=== PATIENT | male | born 1955 | race African-American/Black ===

== ENCOUNTER 2020-04-24 08:57 | Emergency (ER) | payer OTHER ==
[2020-04-24] MEDS ORDERED: Morphine 4 MG/ML VIAL ONE (09:13)
[2020-04-24] MEDS ORDERED: Ondansetron PF 4 MG/2 ML Vial ONE (09:13)
[2020-04-24 09:39] LABS: #Eosinphils 0.1 thou/uL (0.0-0.7); #Lymphocytes 2.4 thou/uL (1.20-3.40); #Monocytes 1.2 thou/uL (0.11-0.59); #Neutrophils 5.2 thou/uL (1.40-6.50); %Basophils 0.4 % (0.0-1.0); %Eosinophils 0.7 % (0.0-10.0); %Lymphocytes 27.1 % (21.0-51.0); %Neutrophils 58.9 % (42.0-75.0); Mean Corpuscular HGB CONC 32.5 g/dL (32.0-36.0); Mean Corpuscular Hemoglobin 27.1 pg (27.0-31.0); Mean Corpuscular Volume 83.3 fL (78.0-98.0); Mean Platelet Volume 10.5 fL (7.4-10.4); Platelet Count 195 thou/uL (130-400); RBC Distribution Width 21.1 % (11.5-14.5); Red Blood Cell (RBC) Count 2.95 mill/uL (4.70-6.10); White Blood Cell (WBC) Count 8.9 thou/uL (4.8-10.8)
[2020-04-24] MEDS ORDERED: Ketorolac Tromethamine 30 MG/ML VIAL ONE (09:39)
[2020-04-24 10:03] LABS: ALT (SGPT) 23 U/L (8-55); AST (SGOT) 64 U/L (5-34); Albumin 3.8 g/dL (3.4-4.8); Alkaline Phosphatase 210 U/L (40-110); Anion Gap 20 mmol/L (10-20); BUN (Urea Nitrogen) 24 mg/dL (8.4-25.7); Bilirubin, Total 0.6 mg/dL (0.2-1.2); Calc. Creatinine Clearance 0 mL/min (70-130); Calcium 9.5 mg/dL (7.8-10.44); Carbon Dioxide 20 mmol/L (23-31); Chloride 101 mmol/L (98-107); Estimated GFR-MDRD Greater than 90; Globulin 4.3 g/dL (2.4-3.5); Glucose 112 mg/dL (80-115); Potassium 4.3 mmol/L (3.5-5.1); Protein, Total 8.1 g/dL (5.8-8.1); Sodium 137 mmol/L (136-145)
== END 2020-04-24 14:12 | disposition home or self-care (01) ==
LOC: MERGE 08:57 → ERS 08:57
DX: G89.3 Neoplasm related pain (acute) (chronic) (principal); C61 Malignant neoplasm of prostate; C79.89 Secondary malignant neoplasm of other specified sites; Z79.899 Other long term (current) drug therapy
CPT/HCPCS: 80053; 85025; 96374; 96375; J1885; J2270; J2405

== ENCOUNTER 2020-04-30 12:16 | Inpatient (IN) | payer BC, SELFPAY ==
[2020-04-30 13:14] LABS: Hemoglobin 8.1 g/dL (14.0-18.0); Mean Corpuscular HGB CONC 32.9 g/dL (32.0-36.0); Mean Corpuscular Hemoglobin 28.2 pg (27.0-31.0); Mean Corpuscular Volume 85.8 fL (78.0-98.0); RBC Distribution Width 19.1 % (11.5-14.5); Red Blood Cell (RBC) Count 2.87 mill/uL (4.70-6.10)
[2020-04-30] MEDS ORDERED: Aspirin Chewable 81 MG TAB ONE ×2 (13:19→13:20)
[2020-04-30] MEDS ORDERED: Cefepime 2 GM VIAL ONE (13:19)
--- NOTE | 2020-04-30 13:24 | RAD ---
EXAM: XR Chest 1 View Portable PROVIDED CLINICAL HISTORY: Chest pain COMPARISON: 04/11/2020 FINDINGS: Cardiac and mediastinal silhouette is within normal limits. Prominence of the pulmonary vasculature a nd pulmonary interstitium. Question patchy foci of airspace disease involving the left mid and lower lung zones. No pleural fluid or pneumothorax apparent. Diffuse osseous sclerosis. IMPRESSION: Prominence of the pulmonary vasculature and pulmonary interstitium, with question left perihilar airs pace disease. Correlate for alveolar edema versus pneumonia.
[2020-04-30 13:27] LABS: ALT (SGPT) 164 U/L (8-55); AST (SGOT) 101 U/L (5-34); Albumin 3.1 g/dL (3.4-4.8); Alkaline Phosphatase 304 U/L (40-110); Anion Gap 16 mmol/L (10-20); BUN (Urea Nitrogen) 21 mg/dL (8.4-25.7); Bilirubin, Total 2.3 mg/dL (0.2-1.2); CK (CPK) 123 U/L (30-200); Calc. Creatinine Clearance 0 mL/min (70-130); Calcium 9.8 mg/dL (7.8-10.44); Carbon Dioxide 27 mmol/L (23-31); Chloride 96 mmol/L (98-107); Globulin 4.2 g/dL (2.4-3.5); Glucose 97 mg/dL (80-115); Potassium 4.9 mmol/L (3.5-5.1); Protein, Total 7.3 g/dL (5.8-8.1); Sodium 134 mmol/L (136-145)
[2020-04-30] MEDS ORDERED: Vancomycin HCl 1.25 GM in Sodium Chloride 0.9% 250 ML 250 ML IVPB SCH (13:30)
[2020-04-30] MEDS ORDERED: Iopamidol-370 76% 500 ML 1 ML ONE (13:35)
[2020-04-30 13:36] LABS: Band 34 % (5-11); Lymphocytes 22 % (21-51); MDiff Complete? YES; Mean Platelet Volume 8.1 fL (7.4-10.4); Metamyelocyte 4 % (0-0); Monocytes 19 % (0-10); Myelocyte 6 % (0-0); Neutrophil 8 % (42-75); Nucleated RBC 4 % (0); Ovalocytes SLIGHT = 2-5 cells (100X) (0-1/hpf); Platelet Count 64 thou/uL (130-400); Platelet Morphology Comment Appears Decreased; Polychromasia MODERATE = 3-4 cells (100X) (0-2/hpf); Reactive Lymphocytes 7 % (0-10); Schistocytes SLIGHT = 2-5 cells (100X) (0-1/hpf); Target Cells SLIGHT = 2-5 cells (100X) (0-1/hpf); Tear Drops SLIGHT = 2-5 cells (100X) (0-1/hpf); White Blood Cell (WBC) Count 8.5 thou/uL (4.8-10.8)
[2020-04-30 13:56] LABS: INR-International Normal Ratio 1.4; Prothrombin Time 17.8 sec (12.0-14.7)
[2020-04-30 13:57] LABS: PTT 52.5 sec (22.9-36.1)
--- NOTE | 2020-04-30 14:30 | CT ---
CT of the abdomen and pelvis: 04/30/2020 COMPARISON: 04/11/2020 HISTORY: Epigastric pain, right upper quadrant pain, metastatic prostate cancer TECHNIQUE: Axial CT imaging at 5 mm intervals from lung bases through pubic symphysis with IV contras t. Coronal and sagittal reformatted imaging obtained. FINDINGS: Small bilateral pleural effusions are noted, slightly more prominent than on the prior exam . No free intraperitoneal air. There is a small/moderate pericardial effusion which is larger than on the 04/11/2020 exam. The gallb ladder is grossly unremarkable but not optimally assessed on CT. Along the gallbladder fundus there is questionable wall thickening versus mild soft tissue density external to the gallbladder abutting the fundus with subtle nodular soft tissue density adjacent to the tip of the right lobe of the liver abutting the adjacent:, Not displacing on the prior exam. The liver and spleen demonstrate gran ulomatous change and appears stable when compared to the prior exam. The adrenal glands and kidneys demonstrate no acute findings. Bilateral renal cysts are again noted. The pancreas is grossly unremarkable. Evaluation of the bowel is limited without oral contrast media. Significant stool is seen within the colon. The appendix appears grossly unremarkable. No evidence fo r small bowel obstruction. There is mild diffuse hazy increased density throughout the mesenteric fat of the abdomen/pelvis, whi ch appears new when compared to the prior exam. Prominent right inguinal lymph nodes again noted measuring up to 1.4 cm. No discrete retroperitoneal lymphadenopathy. Review of the osseous structures demonstrates severe widespread osseous metastatic disease involving the entirety of the imaged spine as well as numerous bilateral ribs, bilateral proximal femora, the sacrum, and diffusely throughout the osseous structures of the pelvis. Mild anterolisthesis at the L5 -S1 level is noted secondary to bilateral L5 pars defects. IMPRESSION: Widespread osseous metastatic disease. Interval enlargement of small bilateral pleural ef fusions with increasing pericardial fluid. Hazy increased density throughout the mesenteric fat is noted suggesting nonspecific mesenteric edema. Subtle soft tissue density is suspected in the right upper quadrant abutting the undersurface of the gallbladder and right lobe of the liver as well as the adjacent colon. This could be related to malignancy or hyperdense fluid. Right upper quadrant ultrasound can better assessed the gallbladder.
--- NOTE | 2020-04-30 14:33 | CT ---
CT ANGIOGRAM THORAX WITH CONTRAST: DATE: 04/30/2020 HISTORY: 64-year-old male with prostate cancer presents with chest pain, cough, and dyspnea TECHNIQUE: IV injection of iodinated contrast. Arterial phase scan of chest. 3-D MIP reconstructions. FINDINGS: Unfortunately, contrast bolus timing is maximized for the thoracic aorta, where there is no dissectio n, rupture, or aneurysm. There is some ectasia and tortuosity of the thoracic aorta. Contrast opacification of the pulmonary arteries is suboptimal. However, they can be evaluated after adjusting the window and level of the images in this particular case. No thrombus is present in the pulmonic trunk or the left and right main pulmonary arteries. No thromboembolism is identified in the proximal and mid and distal branches of the bilateral pulmona ry arteries. There is a tiny thrombus in a first order branch of the left upper lobe pulmonary vein. (Coronal imag e 52 of 117, series 604 and oblique coronal image 45 of 78 series 600). Centrilobular emphysematous changes about the lungs. No suspicious pulmonary nodule, consolidation, or pneumothorax. Extensive diffuse heterogeneously sclerotic changes throughout all visualized skeletal structures. Pleural soft tissue thickening follows the medial inner margins of most of the rib metastases. No cardiomegaly. Very small bilateral pleural effusions. No mediastinal or hilar lymphadenopathy. IMPRESSION: 1) no pulmonary thromboembolism identified. 2) small linear thrombus in a first order branch of the left upper lobe pulmonary vein. 3) extensive, diffuse osteoblastic skeletal metastatic disease. 4) small bilateral pleural effusions 5) centrilobular emphysema.
--- NOTE | 2020-04-30 15:23 | ULT ---
ULTRASOUND ABDOMEN LIMITED: (RIGHT UPPER QUADRANT) DATE: 04/30/2020 HISTORY: 64-year-old male with right upper quadrant abdominal pain and elevated bilirubin FINDINGS: Gallbladder:Mildly distended. No gallstones identified. Sludge present. A tiny amount of free fluid a butting the gallbladder and the liver, probably represents minimal ascites. Normal wall thickness of 3 mm. No sonographic De Leon sign. Common duct: 5 mm Liver:Normal echogenicity. Probably mildly enlarged. Pancreas:No sonographic abnormality identified Right kidney:2 x 1.7 cm right upper pole cyst. No hydronephrosis. IMPRESSION: 1) small amount of gallbladder sludge. 2) right renal upper pole cyst. 3) hepatomegaly
[2020-04-30] MEDS ORDERED: Acetaminophen 325 MG TAB PO PRN (16:42)
[2020-04-30] MEDS ORDERED: Bisacodyl 5 MG TAB PO PRN (16:42)
[2020-04-30] MEDS ORDERED: Morphine 2 MG/ML SYRINGE SLOW IVP PRN (17:34)
[2020-04-30] MEDS ORDERED: Nitroglycerin 4.9 GM Bottle SL PRN (17:34)
--- NOTE | 2020-04-30 17:38 | HP ---
CHIEF COMPLAINT: Chest pain. HISTORY OF PRESENT ILLNESS: A 64-year-old male with a history of metastatic prostate cancer on Casodex, had a routine clinic followup for [facility]up [facility]. He told them he has a severe chest pain, and from there, he is transferred to ER for further followup. The patient did not have any recent illness other than shortness of breath that did not worsening from his baseline. He also had pain in his abdominal area as well as on the back, which is all chronic issues. His chest pain is not associated with any features like diaphoresis, but mostly sharp in nature. No radiation to the left arm or the neck. The patient is not on aspirin at home. Regarding his metastatic prostate cancer, he is only on Casodex and no other aggressive intervention during this time. In the ER evaluation, he noted to be tachypneic and tachycardia. Chest x-ray with bilateral atelectasis and mild pleural effusion without any active infiltrate. Troponin is negative. EKG, nonspecific ST-T wave changes. He is saturating 95%. They did not ordered COVID test. This patient is at bedside with the family member. They filled in with some of the information. He did not have any recent blood in the urine or stool. No nausea or vomiting. He does have ongoing abdominal as well as back pain that is not new. No significant weight loss the last few weeks. No COVID exposure. REVIEW OF SYSTEMS: Rest of the review of systems are negative. ALLERGIES: HE HAS NO KNOWN DRUG ALLERGY. PAST MEDICAL HISTORY: Metastatic prostate cancer to the bones. MEDICATIONS: 1. Ketoconazole 200 mg three times a day. 2. [place] one tablet every 6 hours. 3. Casodex 50 mg daily. 4. Senokot as well as Docusate, ibuprofen as needed. 5. Zofran as needed. SOCIAL HISTORY: Does not smoke or drink alcohol. He lives with his family. FAMILY HISTORY: Noncontributory. PHYSICAL EXAMINATION: VITAL SIGNS: The patient is afebrile. GENERAL: He is normotensive. He appears very lethargic and cachetic with malnourishment. HEENT: Pupils are equal, round, and reactive to light. Anicteric. Mucous membranes are moist. CARDIOVASCULAR: Regular rate and rhythm without murmurs, rubs, or gallops. LUNGS: Clear to auscultation bilaterally without wheezing, rales, or rhonchi. ABDOMEN: Soft, nontender, nondistended. Good bowel sounds. EXTREMITIES: Without any pitting edema. LABORATORY DATA: First set of troponin is negative. His hemoglobin 8.1, platelets 64,000. Sodium 134, creatinine 0.76, total bilirubin 2.3, AST 101, ALT 164, alkaline phosphatase 304. IMPRESSION AND PLAN: 1. This is a 64-year-old male with metastatic prostate cancer, presenting with chest pain. We will rule out acute coronary syndrome with serial troponins. Also get a nuclear medicine stress test. The patient without any previous cardiac history. Nuclear medicine stress test, 2D echo. 2. TSH, A1c, lipid panel. Nitroglycerin, morphine as needed for chest pain. Daily baby aspirin and DVT prophylaxis with Lovenox [normal creatinine]. 3. Pancytopenia including anemia of chronic inflammatory disease, and thrombocytopenia, probably reflective of ongoing metastatic prostate cancer. 4. His hemoglobin is stable at 8.1. Does not require any transfusion. 5. Transaminitis elevation likely related to his mets to the liver. The patient does complain with abdominal pain and he does have significant amount of stool. CT showing widespread osseous metastatic disease with increased density throughout the mesenteric fat suggesting his clinical symptoms of ongoing abdominal pain. 6. Based on the chemistry panel, his alkaline phosphatase is 304, AST 104, ALT 164, We will get ultrasound to rule out acute cholecystitis; he is afebrile, and no elevated white count, however, given being immunocompromised, he may not be able to mount significant white count elevation. 7. Deep venous thrombosis prophylaxis with Lovenox. Rest of the management based on his clinical course. Keep him n.p.o. tonight and we will do the stress test in the morning. We will also get a 2D echo. Job ID: [id number] [facility]
[2020-04-30] MEDS: HYDROcodone/Acetaminophen 5/325 mg Tablet PO SCH ×2 (19:05→23:13)
[2020-04-30] MEDS ORDERED: Bisacodyl 10 MG SUPP PR PRN (20:46)
[2020-04-30] MEDS: Ondansetron ODT 4 MG TAB PO SCH ×2 (20:57→21:12)
[2020-04-30] MEDS ORDERED: KETOCONAZOLE 200 MG PO SCH (21:00)
[2020-04-30] MEDS: Senokot S 8.6-50 MG TAB PO PRN (21:12)
[2020-05-01] MEDS: Ondansetron ODT 4 MG TAB PO SCH ×5 (00:48→22:08)
[2020-05-01 02:17] VITALS: BMI 21.9
[2020-05-01] MEDS: HYDROcodone/Acetaminophen 5/325 mg Tablet PO SCH ×3 (05:45→19:24)
[2020-05-01 07:02] LABS: Hemoglobin 7.1 g/dL (14.0-18.0); Mean Corpuscular HGB CONC 32.5 g/dL (32.0-36.0); Mean Corpuscular Hemoglobin 28.4 pg (27.0-31.0); Mean Corpuscular Volume 87.5 fL (78.0-98.0); Platelet Count 58 thou/uL (130-400); RBC Distribution Width 19.3 % (11.5-14.5); Red Blood Cell (RBC) Count 2.49 mill/uL (4.70-6.10); White Blood Cell (WBC) Count 8.3 thou/uL (4.8-10.8)
[2020-05-01 07:06] LABS: Anion Gap 16 mmol/L (10-20); BUN (Urea Nitrogen) 17 mg/dL (8.4-25.7); Calc. Creatinine Clearance 109 mL/min (70-130); Calcium 9.5 mg/dL (7.8-10.44); Carbon Dioxide 23 mmol/L (23-31); Chloride 99 mmol/L (98-107); Cholesterol 144 mg/dl (< 200 Desired); Glucose 84 mg/dL (80-115); HDL Cholesterol 16 mg/dL (>60 Neg Risk); LDL Cholesterol, Calculated 98 mg/dL; Potassium 4.3 mmol/L (3.5-5.1); Sodium 134 mmol/L (136-145); Triglycerides 148 mg/dL (Less than 150)
[2020-05-01 07:14] LABS: Hemoglobin A1c 5.7 % (4.0-6.0)
[2020-05-01 09:03] LABS: Band 2 % (5-11); Eosinophils 1 % (0-10); Lymphocytes 15 % (21-51); MDiff Complete? YES; Metamyelocyte 11 % (0-0); Monocytes 12 % (0-10); Myelocyte 14 % (0-0); Neutrophil 45 % (42-75); Nucleated RBC 2 % (0); Platelet Morphology Comment Appears Decreased; RBC Morphology Normal
--- NOTE | 2020-05-01 12:12 | NM ---
Nuclear medicine Cardiac myocardial perfusion SPECT Ejection fraction study Wall motion cine: DATE:05/01/2020 8:15 AM INDICATION: Chest pain TECHNIQUE: Number of days:2 Rest Study: Technetium 99m-sestamibi (Cardiolite) dose:9.7 mCi Stress study: Technetium 99m-sestamibi (Cardiolite) dose:29.2 mCi FINDINGS: Cardiac (myocardial perfusion) SPECT No definite reversible myocardial perfusion defect is evident. There is a mild-sized region of modera tely reduced activity involving the basal apical inferior ventricular wall and both the rest and stress images likely related to diaphragmatic attenuation but also some diminished resolution from ad jacent splanchnic activity and the colon and liver. Ejection fraction study Left ventricular EF = 87% Wall motion cine Normal wall motion and thickening IMPRESSION: Probably normal myocardial perfusion evaluation. 1. No definite reversible myocardial perfusion defect demonstrated within the limitation exam as abov e. 2. Estimated LVEF of 87%
[2020-05-01] MEDS ORDERED: ADENOSINE 60 MG/20 ML VIAL ONE (13:11)
[2020-05-01] MEDS: Aspirin 81 mg Enteric Coated Tablet PO SCH (13:19)
[2020-05-01] MEDS: Bicalutamide 50 MG TAB PO SCH (13:19)
--- NOTE | 2020-05-01 13:27 | PDOC.HOSPP ---
- Subjective Encounter Date: 05/01/20 Encounter Time: 01:20 Subjective: Patient returned from the stress test. But he still has ongoing chest pain. Abdominal pain. His Derwent is helping. His family member at bedside. I also talked to another family member over the phone. There is a CT chest done yesterday did not show any pulmonary embolism however there is a venous embolism which is unusual will check that with Dr. Aguilera. - Objective Vital Signs & Weight: Vital Signs (12 hours) Temp Pulse Resp BP Pulse Ox 05/01/20 11:59 98.6 F 111 H 16 114/62 92 L 05/01/20 07:40 98.6 F 101 H 16 95/50 L 91 L 05/01/20 04:00 98.2 F 106 H 16 98/62 96 Weight Weight 156 lb 14.4 oz Result Diagrams: 05/01/20 12:33 05/01/20 06:33 Hospitalist ROS - Medication Medications: Active Medications Generic Name Dose Route Start Last Admin Trade Name Freq PRN Reason Stop Dose Admin Hydrocodone Bitart/Acetaminophen 1 tab 04/30/20 18:00 05/01/20 13:19 Hydrocodone/Acetaminophen 5/325 Mg Tablet PO 1 tab Q6HR JOYCE Administration Aspirin 81 mg 05/01/20 09:00 05/01/20 13:19 Aspirin 81 Mg Enteric Coated Tablet PO 81 mg DAILY JOYCE Administration Bicalutamide 50 mg 05/01/20 09:00 05/01/20 13:19 Bicalutamide 50 Mg Tab PO 50 mg DAILY JOYCE Administration Bisacodyl 10 mg 04/30/20 20:46 04/30/20 21:12 Bisacodyl 10 Mg Supp UT 10 mg Q8H PRN Administration Constipation Ondansetron HCl 4 mg 04/30/20 17:00 05/01/20 13:21 Ondansetron Odt 4 Mg Tab PO Not Given Q4HR JOYCE Senna/Docusate Sodium 2 tab 04/30/20 16:42 04/30/20 21:12 Senokot S 8.6-50 Mg Tab PO 2 tab BID PRN Administration Constipation - Exam General Appearance: NAD, awake alert Eye: PERRL ENT: normocephalic atraumatic Neck: supple Heart: RRR Respiratory: CTAB, normal chest expansion, rhonchi Gastrointestinal: soft, normal bowel sounds Neurological: no new deficit Psychiatric: A&O x 3 Hosp A/P - Plan Chest pain -ruled out for acute coronary syndrome his stress test also did not show any reversible ischemia however his EF is 87% suggesting very hyperdynamic LV function. There is a CT chest done yesterday did not show any pulmonary embolism however there is a venous embolism which is unusual will check that with Dr. Aguilera. Transaminitis elevation with a CT showing widespread osseous metastatic disease with increased density throughout the mesenteric fat -AST 104 ALT 164 and alkaline phosphatase 304 -Ultrasound did not show any De Leon sign -Small amount of gallbladder sludge -Normal wall thickness of 3 mm.--- I do not think this represents any indication for surgery at the moment. this patient has more visceral pain with underlying history of metastatic lesions.
[2020-05-01] MEDS: Morphine 2 MG/ML VIAL SLOW IVP PRN (13:52)
[2020-05-01 15:24] LABS: SARS-CoV-2 MS2 Positive; SARS-CoV-2 N Gene Negative; SARS-CoV-2 S Gene Negative; SARS-CoV-2 by NAA Not Detected (NotDetected); SARS-CoV-2 orf1ab Negative
--- NOTE | 2020-05-01 16:46 | CON ---
DATE OF CONSULTATION: REASON FOR CONSULTATION: Prostate cancer. HISTORY OF PRESENT ILLNESS: Mr. Lopez is a 64-year-old gentleman, who was diagnosed with metastatic prostate cancer in 2016. He had bone and lymph node metastatic disease. He was on Lupron for 4 years and had progression after 2 years. He has not been on any treatment because he lost his insurance. He was admitted in February to this facility for right lower extremity pain. He had symptomatic anemia. He had extensive sclerosis throughout all his bones. He had inflammatory changes in his right groin with evidence of lymphadenopathy. He was started on Casodex during that hospitalization and then followed up in our clinic. He stopped taking Casodex after approximately 3 weeks. Unfortunately, the patient had no insurance and was applying for FA; however, he never turned his paperwork in. He has had severe pain and weight loss of last several months, mostly in his lower back and abdomen. He has been to the hospital at least 4 times in the last several months. He has multiple medical records. On his visit on April 27, he saw Dr. Aguilera. CBC showed a hemoglobin of 6.5, so he was transfused 2 units. He agreed to restart Casodex and apparently did turn in some financial assistance information to our vocational case manager. Yesterday, he began to have chest pain, so he presented to the emergency room for evaluation. His hemoglobin was 8.1 and platelet count was 64,000. His bilirubin was elevated at 2.3 with AST of 101, ALT of 164, and alkaline phosphatase of 304. He was admitted for further workup. He underwent scanning of his chest, abdomen, and pelvis, and was noted to have a small thrombus in the 1st order branch of the left upper lobe pulmonary vein. Again, seen were extensive diffuse sclerotic changes consistent with metastatic disease. He had small bilateral pleural effusions. He underwent a negative nuclear stress test. His right upper quadrant abdominal ultrasound showed right renal upper pole cyst, small amount of gallbladder sludge, and hepatomegaly. The patient was seen at bedside. His primary complaint is pain in his back and right upper quadrant of his abdomen. He had a bowel movement last night. He denies shortness of breath. Appears to have chest wall pain. PAST MEDICAL HISTORY: 1. Metastatic prostate cancer diagnosed in 2016. 2. 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 PAST SURGICAL HISTORY: None. ALLERGIES: NO KNOWN DRUG ALLERGIES. HOME MEDICATIONS: 1. Casodex. 2. Gabapentin. 3. [place]. FAMILY HISTORY: Sister had bone cancer. He has family history of breast and colon cancer in his grandmother. REVIEW OF SYSTEMS: 12-point review of systems is negative except for noted in HPI. PHYSICAL EXAMINATION: VITAL SIGNS: Temperature is 98.6, pulse is 111, respiratory rate 16, BP is 114/62. He is 92% on room air. GENERAL: This is a chronically ill-appearing male, in mild pain. HEENT: Normocephalic, atraumatic. Pupils are equal and reactive to light. NECK: Supple. CV: Regular rate and rhythm. LUNGS: Clear. ABDOMEN: Soft, mildly tender in the right upper quadrant. EXTREMITIES: No clubbing or cyanosis. NEUROLOGICAL: Nonfocal. PERTINENT LABORATORY DATA AND X-RAYS: WBCs are 8.3, hemoglobin 7, hematocrit 22.6, platelet count is 58,000. He has 45% neutrophils, 2% bands, 50% lymphs, 12% monocytes. He has 11% metamyelocytes, 14 myelocytes, 2 nucleated reds. PT 17.8, INR is 1.4, and PTT is 52.5. Sodium 134, potassium 4.9, chloride 96, CO2 is 27, BUN is 21, creatinine 0.76, calcium 9.8, lactic acid 1.2, bilirubin 2.3, AST is 101, ALT is 164, alkaline phosphatase is 304. Creatine kinase is 123, serum total protein is 7.3, albumin 3.1, globulin 4.2. Radiology per history of present illness. ASSESSMENT: 1. Metastatic prostate cancer. 2. Extensive bone metastasis. 3. Severe anemia secondary to bone marrow infiltration. 4. Noncompliance. 5. Intractable pain. 6. Elevated LFTs. DISCUSSION: The patient has been started on [place] here. He states he has began Casodex again. His primary complaint is back pain. We will add Toradol and steroids to his pain regimen. His elevated LFTs are new, it is unclear if this is from blockage from the gallbladder. He does have occasional nausea with eating. He will likely need another blood transfusion if hemoglobin drops below 7. Recheck CBC in am. Case has been discussed in detail and reviewed with Dr. Aguilera and Dr. Woods. He will continue Casodex while inpatient, Regarding his thrombus in his lung, recommend therapeutic Lovenox and transition to Coumadin. Job ID: [id number] [facility]
[2020-05-01] MEDS: Dexamethasone 4 MG TAB PO SCH (19:24)
[2020-05-01] MEDS: Ketorolac Tromethamine 30 MG/ML VIAL IVP SCH (19:25)
[2020-05-01] MEDS: Enoxaparin Sodium 80 MG/0.8 ML SYRINGE SC SCH (22:03)
[2020-05-02] MEDS: HYDROcodone/Acetaminophen 5/325 mg Tablet PO SCH ×4 (00:39→18:39)
[2020-05-02] MEDS: Ketorolac Tromethamine 30 MG/ML VIAL IVP SCH ×4 (00:41→18:40)
[2020-05-02] MEDS: Melatonin 3 MG TAB PO PRN (00:42)
[2020-05-02] MEDS: Ondansetron ODT 4 MG TAB PO SCH ×6 (00:43→20:15)
[2020-05-02 04:50] LABS: INR-International Normal Ratio 1.4; PTT 38.7 sec (22.9-36.1); Prothrombin Time 17.7 sec (12.0-14.7)
[2020-05-02] MEDS: Senokot S 8.6-50 MG TAB PO PRN (06:14)
[2020-05-02] MEDS: Enoxaparin Sodium 80 MG/0.8 ML SYRINGE SC SCH ×2 (09:10→20:15)
[2020-05-02] MEDS: Bicalutamide 50 MG TAB PO SCH (09:10)
[2020-05-02] MEDS: Dexamethasone 4 MG TAB PO SCH ×2 (09:10→18:38)
[2020-05-02] MEDS: Aspirin 81 mg Enteric Coated Tablet PO SCH (09:10)
[2020-05-02] MEDS ORDERED: Goserelin Acetate 10.8 MG KIT SC SCH (10:00)
--- NOTE | 2020-05-02 11:24 | PDOC.HOSPP ---
- Subjective Encounter Date: 05/02/20 Encounter Time: 08:28 Subjective: Patient doing well. He is having his breakfast. Denies any nausea. His back pain is controlled with Emma morphine and Toradol. - Objective Vital Signs & Weight: Vital Signs (12 hours) Temp Pulse Resp BP Pulse Ox 05/02/20 08:04 97.7 F 84 16 90/63 95 Weight Weight 156 lb 14.4 oz I&O: 05/01/20 05/02/20 05/03/20 06:59 06:59 06:59 Intake Total 1200 240 Balance 1200 240 Result Diagrams: 05/01/20 12:33 05/01/20 06:33 Hospitalist ROS - Medication Medications: Active Medications Generic Name Dose Route Start Last Admin Trade Name Freq PRN Reason Stop Dose Admin Hydrocodone Bitart/Acetaminophen 1 tab 04/30/20 18:00 05/02/20 06:12 Hydrocodone/Acetaminophen 5/325 Mg Tablet PO 1 tab Q6HR JOYCE Administration Aspirin 81 mg 05/01/20 09:00 05/02/20 09:10 Aspirin 81 Mg Enteric Coated Tablet PO 81 mg DAILY JOYCE Administration Bicalutamide 50 mg 05/01/20 09:00 05/02/20 09:10 Bicalutamide 50 Mg Tab PO 50 mg DAILY JOYCE Administration Bisacodyl 10 mg 04/30/20 16:42 05/02/20 06:15 Bisacodyl 5 Mg Tab PO 10 mg DAILYPRN PRN Administration Constipation Bisacodyl 10 mg 04/30/20 20:46 04/30/20 21:12 Bisacodyl 10 Mg Supp [place] 10 mg Q8H PRN Administration Constipation Dexamethasone 4 mg 05/01/20 17:00 05/02/20 09:10 Dexamethasone 4 Mg Tab PO 4 mg BID-WM JOYCE Administration Enoxaparin Sodium 70 mg 05/01/20 21:00 05/02/20 09:10 Enoxaparin Sodium 80 Mg/0.8 Ml Syringe SC 70 mg BID JOYCE Administration Ketorolac Tromethamine 15 mg 05/01/20 18:00 05/02/20 06:13 Ketorolac Tromethamine 30 Mg/Ml Vial IVP 05/06/20 18:01 15 mg Q6HR JOYCE Administration Melatonin 3 mg 05/02/20 00:01 05/02/20 00:42 Melatonin 3 Mg Tab PO 3 mg HS PRN Administration Insomnia Morphine Sulfate 2 mg 05/01/20 13:33 05/01/20 13:52 Morphine 2 Mg/Ml Vial SLOW IVP 2 mg Q4H PRN Administration Chest Pain Ondansetron HCl 4 mg 04/30/20 17:00 05/02/20 07:32 Ondansetron Odt 4 Mg Tab PO 4 mg Q4HR JOYCE Administration Senna/Docusate Sodium 2 tab 04/30/20 16:42 05/02/20 06:14 Senokot S 8.6-50 Mg Tab PO 2 tab BID PRN Administration Constipation - Exam General Appearance: NAD, awake alert Eye: PERRL ENT: normocephalic atraumatic Neck: supple Heart: RRR, no rubs Respiratory: CTAB, normal chest expansion Gastrointestinal: soft, normal bowel sounds, distended Neurological: cranial nerve grossly intact, no focal deficits Musculoskeletal: generalized weakness Psychiatric: A&O x 3 Hosp A/P - Plan Chest pain -ruled out for acute coronary syndrome his stress test also did not show any reversible ischemia however his EF is 87% suggesting very hyperdynamic LV function. There is a CT chest done yesterday did not show any pulmonary embolism however there is a venous embolism which is unusual will check that with Dr. Aguilera. venous embolism -Discussed with Evy Lamar. It appears that needs to be anticoagulated so not starting him on the Lovenox twice a day dose along with Coumadin. -Once INR is therapeutic will DC the Lovenox. Transaminitis elevation with a CT showing widespread osseous metastatic disease with increased density throughout the mesenteric fat -AST 104 ALT 164 and alkaline phosphatase 304 -Ultrasound did not show any De Leon sign -Small amount of gallbladder sludge -Normal wall thickness of 3 mm.--- I do not think this represents any indication for surgery at the moment. this patient has more visceral pain with underlying history of metastatic lesions. Generalized pain as well as back pain secondary to metastatic prostate cancer His back pain is controlled with Emma morphine and Toradol.
[2020-05-02 12:11] LABS: ALT (SGPT) 86 U/L (8-55); AST (SGOT) 35 U/L (5-34); Albumin 2.8 g/dL (3.4-4.8); Alkaline Phosphatase 254 U/L (40-110); Bilirubin, Direct 0.8 mg/dL (0.1-0.3); Protein, Total 6.7 g/dL (5.8-8.1)
[2020-05-02] MEDS: Warfarin Sodium 5 MG TAB PO SCH (18:39)
[2020-05-03] MEDS: Ondansetron ODT 4 MG TAB PO SCH ×6 (00:19→20:37)
[2020-05-03] MEDS: Ketorolac Tromethamine 30 MG/ML VIAL IVP SCH ×5 (00:19→20:36)
[2020-05-03] MEDS: HYDROcodone/Acetaminophen 5/325 mg Tablet PO SCH ×5 (00:19→20:36)
[2020-05-03] MEDS: Melatonin 3 MG TAB PO PRN ×2 (00:22→22:13)
[2020-05-03 04:26] LABS: INR-International Normal Ratio 1.4; PTT 60.2 sec (22.9-36.1); Prothrombin Time 17.2 sec (12.0-14.7)
[2020-05-03 06:36] LABS: Mean Corpuscular HGB CONC 31.8 g/dL (32.0-36.0); Mean Corpuscular Hemoglobin 27.7 pg (27.0-31.0); Mean Corpuscular Volume 87.1 fL (78.0-98.0); Mean Platelet Volume 6.4 fL (7.4-10.4); Platelet Count 88 thou/uL (130-400); RBC Distribution Width 19.2 % (11.5-14.5); Red Blood Cell (RBC) Count 2.87 mill/uL (4.70-6.10); White Blood Cell (WBC) Count 14.3 thou/uL (4.8-10.8)
[2020-05-03 06:41] LABS: Anisocytosis SLIGHT = 6-15 cells (100X) (0-5/hpf); Band 25 % (5-11); Lymphocytes 17 % (21-51); MDiff Complete? YES; Metamyelocyte 8 % (0-0); Monocytes 8 % (0-10); Myelocyte 13 % (0-0); Neutrophil 29 % (42-75); Nucleated RBC 2 % (0); Platelet Morphology Comment Appears Decreased
[2020-05-03 06:47] LABS: Anion Gap 19 mmol/L (10-20); BUN (Urea Nitrogen) 41 mg/dL (8.4-25.7); Calc. Creatinine Clearance 70 mL/min (70-130); Calcium 7.6 mg/dL (7.8-10.44); Carbon Dioxide 21 mmol/L (23-31); Chloride 101 mmol/L (98-107); Glucose 124 mg/dL (80-115); Sodium 136 mmol/L (136-145)
[2020-05-03] MEDS: Bicalutamide 50 MG TAB PO SCH (09:03)
[2020-05-03] MEDS: Aspirin 81 mg Enteric Coated Tablet PO SCH (09:03)
[2020-05-03] MEDS: Dexamethasone 4 MG TAB PO SCH ×2 (09:03→16:51)
[2020-05-03] MEDS: Enoxaparin Sodium 80 MG/0.8 ML SYRINGE SC SCH ×2 (09:03→20:37)
--- NOTE | 2020-05-03 10:56 | PDOC.HOSPP ---
- Subjective Encounter Date: 05/03/20 Encounter Time: 08:30 Subjective: Patient doing well. He wants to know when he can get home. His INR is probably takes couple of days and to become therapeutic. He has elevated white count afebrile. Normotensive. His abdominal discomfort much better today. - Objective Vital Signs & Weight: Vital Signs (12 hours) Temp Pulse Resp BP Pulse Ox 05/03/20 08:26 97.7 F 81 18 119/65 95 Weight Admit Weight 156 lb 14.4 oz Weight 156 lb 14.4 oz I&O: 05/02/20 05/03/20 05/04/20 06:59 06:59 06:59 Intake Total 1200 600 Balance 1200 600 Result Diagrams: 05/03/20 05:42 05/03/20 05:42 Hospitalist ROS - Medication Medications: Active Medications Generic Name Dose Route Start Last Admin Trade Name Freq PRN Reason Stop Dose Admin Hydrocodone Bitart/Acetaminophen 1 tab 04/30/20 18:00 05/03/20 05:51 Hydrocodone/Acetaminophen 5/325 Mg Tablet PO 1 tab Q6HR JOYCE Administration Aspirin 81 mg 05/01/20 09:00 05/03/20 09:03 Aspirin 81 Mg Enteric Coated Tablet PO 81 mg DAILY JOYCE Administration Bicalutamide 50 mg 05/01/20 09:00 05/03/20 09:03 Bicalutamide 50 Mg Tab PO 50 mg DAILY JOYCE Administration Bisacodyl 10 mg 04/30/20 16:42 05/02/20 06:15 Bisacodyl 5 Mg Tab PO 10 mg DAILYPRN PRN Administration Constipation Bisacodyl 10 mg 04/30/20 20:46 04/30/20 21:12 Bisacodyl 10 Mg Supp IN 10 mg Q8H PRN Administration Constipation Dexamethasone 4 mg 05/01/20 17:00 05/03/20 09:03 Dexamethasone 4 Mg Tab PO 4 mg BID-WM JOYCE Administration Enoxaparin Sodium 70 mg 05/01/20 21:00 05/03/20 09:03 Enoxaparin Sodium 80 Mg/0.8 Ml Syringe SC 70 mg BID JOYCE Administration Ketorolac Tromethamine 15 mg 05/01/20 18:00 05/03/20 05:51 Ketorolac Tromethamine 30 Mg/Ml Vial IVP 05/06/20 18:01 15 mg Q6HR JOYCE Administration Melatonin 3 mg 05/02/20 00:01 05/03/20 00:22 Melatonin 3 Mg Tab PO 3 mg HS PRN Administration Insomnia Morphine Sulfate 2 mg 05/01/20 13:33 05/01/20 13:52 Morphine 2 Mg/Ml Vial SLOW IVP 2 mg Q4H PRN Administration Chest Pain Ondansetron HCl 4 mg 04/30/20 17:00 05/03/20 09:04 Ondansetron Odt 4 Mg Tab PO Not Given Q4HR JOYCE Senna/Docusate Sodium 2 tab 04/30/20 16:42 05/02/20 06:14 Senokot S 8.6-50 Mg Tab PO 2 tab BID PRN Administration Constipation Warfarin Sodium 5 mg 05/02/20 17:00 05/02/20 18:39 Warfarin Sodium 5 Mg Tab PO 5 mg 1700 JOYCE Administration - Exam General Appearance: NAD, awake alert Eye: PERRL ENT: normocephalic atraumatic Neck: supple Heart: RRR Respiratory: CTAB Gastrointestinal: soft, normal bowel sounds Neurological: cranial nerve grossly intact, no new deficit Psychiatric: A&O x 3 Hosp A/P - Plan Chest pain -ruled out for acute coronary syndrome his stress test also did not show any reversible ischemia however his EF is 87% suggesting very hyperdynamic LV function. There is a CT chest done yesterday did not show any pulmonary embolism however there is a venous embolism which is unusual will check that with Dr. Aguilera. venous embolism -Discussed with Evy Lamar. It appears that needs to be anticoagulated so not starting him on the Lovenox twice a day dose along with Coumadin. -Once INR is therapeutic will DC the Lovenox. Transaminitis elevation with a CT showing widespread osseous metastatic disease with increased density throughout the mesenteric fat -AST 104 ALT 164 and alkaline phosphatase 304 -Ultrasound did not show any [place] sign -Small amount of gallbladder sludge -Normal wall thickness of 3 mm.--- I do not think this represents any indication for surgery at the moment. this patient has more visceral pain with underlying history of metastatic lesions. Generalized pain as well as back pain secondary to metastatic prostate cancer His back pain is controlled with [place] morphine and Toradol. Waiting for INR to become therapeutic. Then he is medically stable to be discharged home with the follow-up recommendations from oncologist. Pending oncologist clearance as well.
--- NOTE | 2020-05-03 11:18 | RAD ---
EXAM: Chest one view: HISTORY: Elevated white count COMPARISON: 04/30/2020 FINDINGS: Evidence for sclerotic bilateral bone metastasis. Old granulomatous calcifications. Heart size: Within normal limits. Lungs: Clear of acute process. No evidence for confluent lobar pneumonia, significant pleural effusion, acute edema, or pneumothorax , or other significant acute process. IMPRESSION: Evidence for bone metastasis. Stable exam.
[2020-05-03] MEDS: Warfarin Sodium 5 MG TAB PO SCH (16:51)
[2020-05-04] MEDS: Ondansetron ODT 4 MG TAB PO SCH ×7 (00:30→20:15)
[2020-05-04] MEDS ORDERED: HYDROcodone/Acetaminophen 5/325 mg Tablet PO SCH (02:00)
[2020-05-04] MEDS: HYDROcodone/Acetaminophen 5/325 mg Tablet PO SCH ×4 (03:55→20:15)
[2020-05-04] MEDS: Ketorolac Tromethamine 30 MG/ML VIAL IVP SCH ×4 (03:56→20:15)
[2020-05-04 05:04] LABS: INR-International Normal Ratio 1.3; Prothrombin Time 16.5 sec (12.0-14.7)
[2020-05-04 05:17] LABS: Anion Gap 17 mmol/L (10-20); BUN (Urea Nitrogen) 42 mg/dL (8.4-25.7); Calc. Creatinine Clearance 98 mL/min (70-130); Calcium 7.6 mg/dL (7.8-10.44); Carbon Dioxide 23 mmol/L (23-31); Chloride 103 mmol/L (98-107); Glucose 108 mg/dL (80-115); Potassium 4.3 mmol/L (3.5-5.1); Sodium 139 mmol/L (136-145)
[2020-05-04 06:25] LABS: Anisocytosis MODERATE=16-30 cells (100X) (0-5/hpf); Band 27 % (5-11); Hemoglobin 7.6 g/dL (14.0-18.0); Lymphocytes 24 % (21-51); MDiff Complete? YES; Mean Corpuscular Hemoglobin 27.7 pg (27.0-31.0); Mean Corpuscular Volume 86.5 fL (78.0-98.0); Mean Platelet Volume 6.4 fL (7.4-10.4); Metamyelocyte 1 % (0-0); Monocytes 4 % (0-10); Myelocyte 9 % (0-0); Neutrophil 35 % (42-75); Nucleated RBC 4 % (0); Platelet Count 71 thou/uL (130-400); Platelet Morphology Comment Appears Decreased; Polychromasia SLIGHT = 2-3 cells (100X) (0-2/hpf); Red Blood Cell (RBC) Count 2.75 mill/uL (4.70-6.10); Tear Drops SLIGHT = 2-5 cells (100X) (0-1/hpf); White Blood Cell (WBC) Count 14.8 thou/uL (4.8-10.8)
[2020-05-04] MEDS ORDERED: Cepastat Lozenges 1 LOZ PO PRN (07:30)
[2020-05-04] MEDS ORDERED: Sodium Chloride 0.65% Nasal 44 ML BOT EA NARE PRN (07:30)
[2020-05-04] MEDS ORDERED: Ondansetron PF 4 MG/2 ML Vial IVP PRN (07:30)
[2020-05-04] MEDS ORDERED: Calcium Carbonate 500 MG ChewTAB PO PRN (07:30)
[2020-05-04] MEDS ORDERED: Diabetic Tussin 200 MG/10 ML UDCUP PO PRN (07:30)
[2020-05-04] MEDS ORDERED: hydrALAZINE 20 MG/ML VIAL SLOW IVP PRN (07:30)
[2020-05-04] MEDS ORDERED: Loratadine 10 MG TAB PO PRN (07:30)
[2020-05-04] MEDS ORDERED: Loperamide HCl 2 MG CAP PO PRN (07:30)
[2020-05-04] MEDS ORDERED: Senokot 8.6 MG TAB PO PRN (07:31)
[2020-05-04] MEDS: Aspirin 81 mg Enteric Coated Tablet PO SCH (08:07)
[2020-05-04] MEDS: Dexamethasone 4 MG TAB PO SCH ×2 (08:09→17:06)
[2020-05-04] MEDS: Docusate 100 MG CAP PO SCH ×2 (08:09→20:15)
[2020-05-04] MEDS: Bicalutamide 50 MG TAB PO SCH (08:11)
--- NOTE | 2020-05-04 09:55 | PDOC.HOSPP ---
- Subjective Encounter Date: 05/04/20 Encounter Time: 07:15 Subjective: Patient seen and examined bedside today, patient feels that he has only generalized soreness but his pain is significantly improved, - Objective Vital Signs & Weight: Vital Signs (12 hours) Temp Pulse Resp BP Pulse Ox 05/04/20 08:13 98.4 F 98 18 130/84 97 Weight Admit Weight 156 lb 14.4 oz Weight 156 lb 14.4 oz I&O: 05/03/20 05/04/20 05/05/20 06:59 06:59 06:59 Intake Total 600 720 Balance 600 720 Result Diagrams: 05/04/20 04:42 05/04/20 04:42 Radiology Reviewed by me: Yes Hospitalist ROS - Review of Systems Constitutional: reports: weakness. denies: fever, chills, sweats, malaise, other Respiratory: denies: cough, dry, shortness of breath, hemoptysis, SOB with excertion, pleuritic pain, sputum, wheezing, other Cardiovascular: denies: chest pain, palpitations, orthopnea, paroxysmal noc. dyspnea, edema, light headedness, other Gastrointestinal: denies: nausea, vomiting, abdominal pain, diarrhea, const ipation, melena, hematochezia, other Genitourinary: denies: dysuria, frequency, incontinence, hematuria, retention, other Musculoskeletal: denies: neck pain, shoulder pain, arm pain, back pain, hand pain, leg pain, foot pain, other - Medication Medications: Active Medications Generic Name Dose Route Start Last Admin Trade Name Freq PRN Reason Stop Dose Admin Hydrocodone Bitart/Acetaminophen 1 tab 05/04/20 03:00 05/04/20 08:08 Hydrocodone/Acetaminophen 5/325 Mg Tablet PO 1 tab 0300,0900,1500,2100 JOYCE Administration Aspirin 81 mg 05/01/20 09:00 05/04/20 08:07 Aspirin 81 Mg Enteric Coated Tablet PO 81 mg DAILY JOYCE Administration Bicalutamide 50 mg 05/01/20 09:00 05/04/20 08:11 Bicalutamide 50 Mg Tab PO 50 mg DAILY JOYCE Administration Bisacodyl 10 mg 04/30/20 16:42 05/02/20 06:15 Bisacodyl 5 Mg Tab PO 10 mg DAILYPRN PRN Administration Constipation Bisacodyl 10 mg 04/30/20 20:46 04/30/20 21:12 Bisacodyl 10 Mg Supp NC 10 mg Q8H PRN Administration Constipation Dexamethasone 4 mg 05/01/20 17:00 05/04/20 08:09 Dexamethasone 4 Mg Tab PO 4 mg BID-WM JOYCE Administration Docusate Sodium 100 mg 05/04/20 09:00 05/04/20 08:09 Docusate 100 Mg Cap PO 100 mg BID JOYCE Administration Enoxaparin Sodium 70 mg 05/01/20 21:00 05/03/20 20:37 Enoxaparin Sodium 80 Mg/0.8 Ml Syringe SC 70 mg BID JOYCE Administration Ketorolac Tromethamine 15 mg 05/04/20 03:00 05/04/20 08:13 Ketorolac Tromethamine 30 Mg/Ml Vial IVP 05/06/20 21:01 15 mg 0300,0900,1500,2100 JOYCE Administration Melatonin 3 mg 05/02/20 00:01 05/03/20 22:13 Melatonin 3 Mg Tab PO 3 mg HS PRN Administration Insomnia Morphine Sulfate 2 mg 05/01/20 13:33 05/01/20 13:52 Morphine 2 Mg/Ml Vial SLOW IVP 2 mg Q4H PRN Administration Chest Pain Ondansetron HCl 4 mg 04/30/20 17:00 05/04/20 08:07 Ondansetron Odt 4 Mg Tab PO 4 mg Q4HR JOYCE Administration Senna/Docusate Sodium 2 tab 04/30/20 16:42 05/02/20 06:14 Senokot S 8.6-50 Mg Tab PO 2 tab BID PRN Administration Constipation Sodium Chloride 10 ml 05/04/20 09:00 05/04/20 08:16 Flush - Normal Saline 10 Ml Syringe IVF 10 ml Q12HR JOYCE Administration Warfarin Sodium 5 mg 05/02/20 17:00 05/03/20 16:51 Warfarin Sodium 5 Mg Tab PO 5 mg 1700 JOYCE Administration - Exam General Appearance: NAD, awake alert Eye: PERRL, anicteric sclera ENT: normocephalic atraumatic, no oropharyngeal lesions Neck: supple, symmetric, no JVD, no thyromegaly Heart: RRR, no murmur, no gallops, no rubs Respiratory: no wheezes, no rales, no ronchi Gastrointestinal: soft, non-tender, non-distended, normal bowel sounds Extremities: no cyanosis, no clubbing, no edema Skin: normal turgor, no lesions Neurological: no focal deficits Musculoskeletal: normal tone, normal strength Psychiatric: normal affect, normal behavior, A&O x 3 Hosp A/P (1) Chest pain Code(s): R07.9 - CHEST PAIN, UNSPECIFIED Status: Acute (2) 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 - OTHER PULMONARY EMBOLISM WITHOUT ACUTE COR PULMONALE Status: Acute (3) Prostate cancer metastatic to bone Code(s): C61 - MALIGNANT NEOPLASM OF PROSTATE; C79.51 - SECONDARY MALIGNANT NEOPLASM OF BONE Status: Chronic (4) Anemia of chronic disease Code(s): D63.8 - ANEMIA IN OTHER CHRONIC DISEASES CLASSIFIED ELSEWHERE Status: Chronic (5) Abnormal LFTs Code(s): R94.5 - ABNORMAL RESULTS OF LIVER FUNCTION STUDIES Status: Acute (6) Thrombocytopenia Code(s): D69.6 - THROMBOCYTOPENIA, UNSPECIFIED Status: Chronic (7) Leukocytosis Code(s): D72.829 - ELEVATED WHITE BLOOD CELL COUNT, UNSPECIFIED Status: Acute (8) Bone metastasis Code(s): C79.51 - SECONDARY MALIGNANT NEOPLASM OF BONE Status: Chronic (9) Tobacco abuse Code(s): Z72.0 - TOBACCO USE Status: Chronic - Plan old records reviewed/req, PT/OT Leukocytosis most likely related with dexamethasone Hemoglobin stable after two 1 unit of transfusion during this admission INR is still subtherapeutic, patient will continue Lovenox and warfarin together, platelet count are stable, continue Lovenox Continue PT OT and pain control LFT is improving, no acute process concerning for gallbladder pathology Chest pain has been resolved and the cardiac etiology has been ruled out, negat betsy stress test We will consider discharge when INR is therapeutic and oncology clears for discharge We will monitor labs while in hospital, as needed blood transfusion if hemoglobin less than 7
[2020-05-04] MEDS: Enoxaparin Sodium 80 MG/0.8 ML SYRINGE SC SCH ×2 (12:32→20:23)
--- NOTE | 2020-05-04 16:04 | PDOC.MOPN ---
Interval History: pain well controlled. tolerating casodex. - Vital Signs Vital Signs: Vital Signs (12 hours) Temp Pulse Resp BP Pulse Ox 05/04/20 08:13 98.4 F 98 18 130/84 97 Weight Admit Weight 156 lb 14.4 oz Weight 156 lb 14.4 oz - Physical Exam General: Alert, Oriented x3, No acute distress HEENT: Atraumatic, PERRLA, EOMI, Mucous membr. moist/pink Lungs: Clear to auscultation, Normal air movement Cardiovascular: Regular rate, Normal S1, Normal S2, No murmurs, Gallops, Rubs Abdomen: Normal bowel sounds, Soft, No tenderness, No hepatospenomegaly, No masses Extremities: Other Neurological: Normal speech - Labs Result Diagrams: 05/04/20 04:42 05/04/20 04:42 Lab results: Laboratory Results - last 24 hr 05/04/20 04:42: Sodium 139, Potassium 4.3, Chloride 103, Carbon Dioxide 23, Anion Gap 17, BUN 42 H, Creatinine 0.78, Estimated GFR (MDRD) Greater than 90, Glucose 108, Calcium 7.6 L 05/04/20 04:42: WBC 14.8 H, RBC 2.75 L, Hgb 7.6 L, Hct 23.7 L, MCV 86.5, MCH 27.7, MCHC 32.0, RDW 19.0 H, Plt Count 71 L, MPV 6.4 L, Neutrophils % (Manual) 35 L, Band Neuts % (Manual) 27 H, Lymphocytes % (Manual) 24, Monocytes % (Manual) 4, Metamyelocytes % (Man) 1 H, Myelocytes % 9 H, Nucleated RBCs # (Man) 4 H, Plt Morphology Comment Appears Decreased L, Polychromasia SLIGHT = 2-3 cells, Anisocytosis MODERATE=16-30 cells H, Tear Drop Cells SLIGHT = 2-5 cells 05/04/20 04:42: PT 16.5 H, INR 1.3, APTT 59.0 H Status: lab reviewed by me A/P - Problem (1) Thrombus of pulmonary vein Current Visit: Yes Code(s): I26.99 - OTHER PULMONARY EMBOLISM WITHOUT ACUTE COR PULMONALE Status: Acute (2) Prostate cancer metastatic to bone Current Visit: Yes Code(s): C61 - MALIGNANT NEOPLASM OF PROSTATE; C79.51 - SECONDARY MALIGNANT NEOPLASM OF BONE Status: Chronic - Plan Plan: 1. continue coumadin for thrombus 2. pain controlled, continue dex and toradol for now 3. continue casodex, add Zoladex shot today 4. home with steroids when INR therapeutic
[2020-05-04] MEDS: Warfarin Sodium 5 MG TAB PO SCH (17:06)
[2020-05-05] MEDS: Ondansetron ODT 4 MG TAB PO SCH ×6 (00:39→21:37)
[2020-05-05 03:57] LABS: INR-International Normal Ratio 1.4; Prothrombin Time 17.3 sec (12.0-14.7)
[2020-05-05 03:58] LABS: Anion Gap 14 mmol/L (10-20); BUN (Urea Nitrogen) 32 mg/dL (8.4-25.7); Calc. Creatinine Clearance 104 mL/min (70-130); Carbon Dioxide 24 mmol/L (23-31); Chloride 107 mmol/L (98-107); Glucose 84 mg/dL (80-115); Potassium 4.6 mmol/L (3.5-5.1); Sodium 140 mmol/L (136-145)
[2020-05-05 03:59] LABS: ALT (SGPT) 61 U/L (8-55); AST (SGOT) 33 U/L (5-34); Albumin 2.8 g/dL (3.4-4.8); Alkaline Phosphatase 193 U/L (40-110); Bilirubin, Direct 0.5 mg/dL (0.1-0.3); Bilirubin, Total 0.6 mg/dL (0.2-1.2)
[2020-05-05] MEDS: HYDROcodone/Acetaminophen 5/325 mg Tablet PO SCH ×4 (04:03→21:37)
[2020-05-05] MEDS: Ketorolac Tromethamine 30 MG/ML VIAL IVP SCH ×4 (04:03→21:39)
[2020-05-05 05:19] LABS: Anisocytosis SLIGHT = 6-15 cells (100X) (0-5/hpf); Band 28 % (5-11); Eosinophils 1 % (0-10); Hemoglobin 7.5 g/dL (14.0-18.0); Lymphocytes 13 % (21-51); MDiff Complete? YES; Mean Corpuscular HGB CONC 32.1 g/dL (32.0-36.0); Mean Corpuscular Volume 87.2 fL (78.0-98.0); Mean Platelet Volume 7.5 fL (7.4-10.4); Metamyelocyte 7 % (0-0); Monocytes 5 % (0-10); Myelocyte 13 % (0-0); Neutrophil 33 % (42-75); Nucleated RBC 4 % (0); Platelet Count 84 thou/uL (130-400); Platelet Morphology Comment Appears Decreased; Polychromasia SLIGHT = 2-3 cells (100X) (0-2/hpf); RBC Distribution Width 19.5 % (11.5-14.5); Red Blood Cell (RBC) Count 2.67 mill/uL (4.70-6.10); White Blood Cell (WBC) Count 15.6 thou/uL (4.8-10.8)
[2020-05-05] MEDS: Dexamethasone 4 MG TAB PO SCH ×2 (08:20→17:36)
[2020-05-05] MEDS: Aspirin 81 mg Enteric Coated Tablet PO SCH (08:20)
[2020-05-05] MEDS: Docusate 100 MG CAP PO SCH ×2 (08:20→21:37)
[2020-05-05] MEDS: Enoxaparin Sodium 80 MG/0.8 ML SYRINGE SC SCH ×2 (08:25→21:40)
[2020-05-05] MEDS: Bicalutamide 50 MG TAB PO SCH (09:36)
--- NOTE | 2020-05-05 11:22 | PDOC.HOSPP ---
- Subjective Encounter Date: 05/05/20 Encounter Time: 10:10 Subjective: Patient seen and examined. No new complaints. No overnight events - Objective Vital Signs & Weight: Vital Signs (12 hours) Temp Pulse Resp BP Pulse Ox 05/05/20 08:17 97.9 F 83 18 119/74 95 Weight Admit Weight 156 lb 14.4 oz Weight 156 lb 14.4 oz I&O: 05/04/20 05/05/20 05/06/20 06:59 06:59 06:59 Intake Total 720 Balance 720 Result Diagrams: 05/05/20 03:26 05/05/20 03:26 Hospitalist ROS - Review of Systems ENT: denies: ear pain, ear discharge, nose pain, nose discharge, nose congestion, mouth pain, mouth swelling, throat pain, throat swelling, other Respiratory: denies: cough, dry, shortness of breath, hemoptysis, SOB with excertion, pleuritic pain, sputum, wheezing, other Cardiovascular: denies: chest pain, palpitations, orthopnea, paroxysmal noc. dyspnea, edema, light headedness, other Gastrointestinal: denies: nausea, vomiting, abdominal pain, diarrhea, constipation, melena, hematochezia, other Genitourinary: denies: dysuria, frequency, incontinence, hematuria, retention, other Musculoskeletal: denies: neck pain, shoulder pain, arm pain, back pain, hand pain, leg pain, foot pain, other - Medication Medications: Active Medications Generic Name Dose Route Start Last Admin Trade Name Freq PRN Reason Stop Dose Admin Hydrocodone Bitart/Acetaminophen 1 tab 05/04/20 03:00 05/05/20 08:21 Hydrocodone/Acetaminophen 5/325 Mg Tablet PO 1 tab 0300,0900,1500,2100 JOYCE Administration Aspirin 81 mg 05/01/20 09:00 05/05/20 08:20 Aspirin 81 Mg Enteric Coated Tablet PO 81 mg DAILY JOYCE Administration Bicalutamide 50 mg 05/01/20 09:00 05/05/20 09:36 Bicalutamide 50 Mg Tab PO 50 mg DAILY JOYCE Administration Bisacodyl 10 mg 04/30/20 16:42 05/02/20 06:15 Bisacodyl 5 Mg Tab PO 10 mg DAILYPRN PRN Administration Constipation Bisacodyl 10 mg 04/30/20 20:46 04/30/20 21:12 Bisacodyl 10 Mg Supp GA 10 mg Q8H PRN Administration Constipation Dexamethasone 4 mg 05/01/20 17:00 05/05/20 08:20 Dexamethasone 4 Mg Tab PO 4 mg BID-WM JOYCE Administration Docusate Sodium 100 mg 05/04/20 09:00 05/05/20 08:20 Docusate 100 Mg Cap PO 100 mg BID JOYCE Administration Enoxaparin Sodium 70 mg 05/01/20 21:00 05/05/20 08:25 Enoxaparin Sodium 80 Mg/0.8 Ml Syringe SC 70 mg BID JOYCE Administration Ketorolac Tromethamine 15 mg 05/04/20 03:00 05/05/20 08:24 Ketorolac Tromethamine 30 Mg/Ml Vial IVP 05/06/20 21:01 15 mg 0300,0900,1500,2100 JOYCE Administration Melatonin 3 mg 05/02/20 00:01 05/03/20 22:13 Melatonin 3 Mg Tab PO 3 mg HS PRN Administration Insomnia Morphine Sulfate 2 mg 05/01/20 13:33 05/01/20 13:52 Morphine 2 Mg/Ml Vial SLOW IVP 2 mg Q4H PRN Administration Chest Pain Ondansetron HCl 4 mg 04/30/20 17:00 05/05/20 08:20 Ondansetron Odt 4 Mg Tab PO 4 mg Q4HR JOYCE Administration Senna/Docusate Sodium 2 tab 04/30/20 16:42 05/02/20 06:14 Senokot S 8.6-50 Mg Tab PO 2 tab BID PRN Administration Constipation Sodium Chloride 10 ml 05/04/20 09:00 05/05/20 08:33 Flush - Normal Saline 10 Ml Syringe IVF 10 ml Q12HR JOYCE Administration Sodium Chloride 10 ml 05/04/20 08:00 05/04/20 17:09 Flush - Normal Saline 10 Ml Syringe IVF 10 ml PRN PRN Administration Saline Flush Warfarin Sodium 5 mg 05/02/20 17:00 05/04/20 17:06 Warfarin Sodium 5 Mg Tab PO 5 mg 1700 JOYCE Administration - Exam General Appearance: NAD, awake alert Eye: PERRL, anicteric sclera ENT: normocephalic atraumatic, no oropharyngeal lesions Neck: supple, symmetric, no JVD, no thyromegaly Heart: RRR, no murmur, no gallops, no rubs Respiratory: CTAB, no wheezes, no rales, no ronchi Gastrointestinal: soft, non-tender, non-distended, normal bowel sounds Extremities: no cyanosis, no clubbing, no edema Skin: normal turgor, no lesions Neurological: no focal deficits Musculoskeletal: normal tone, normal strength Psychiatric: normal affect, normal behavior Hosp A/P (1) Chest pain Code(s): R07.9 - CHEST PAIN, UNSPECIFIED Status: Resolved (2) 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 - OTHER PULMONARY EMBOLISM WITHOUT ACUTE COR PULMONALE Status: Acute (3) Prostate cancer metastatic to bone Code(s): C61 - MALIGNANT NEOPLASM OF PROSTATE; C79.51 - SECONDARY MALIGNANT NEOPLASM OF BONE Status: Chronic (4) Anemia of chronic disease Code(s): D63.8 - ANEMIA IN OTHER CHRONIC DISEASES CLASSIFIED ELSEWHERE Status: Chronic (5) Abnormal LFTs Code(s): R94.5 - ABNORMAL RESULTS OF LIVER FUNCTION STUDIES Status: Acute (6) Thrombocytopenia Code(s): D69.6 - THROMBOCYTOPENIA, UNSPECIFIED Status: Chronic (7) Leukocytosis Code(s): D72.829 - ELEVATED WHITE BLOOD CELL COUNT, UNSPECIFIED Status: Acute (8) Bone metastasis Code(s): C79.51 - SECONDARY MALIGNANT NEOPLASM OF BONE Status: Chronic (9) Tobacco abuse Code(s): Z72.0 - TOBACCO USE Status: Chronic - Plan old records reviewed/req Leukocytosis most likely related with dexamethasone Hemoglobin stable after two 1 unit of transfusion during this admission INR is still subtherapeutic, patient will continue Lovenox and warfarin together, platelet count are stable, continue Lovenox Continue PT OT and pain control LFT is improving, no acute process concerning for gallbladder pathology Chest pain has been resolved and the cardiac etiology has been ruled out, negative stress test We will consider discharge when INR is therapeutic and oncology clears for discharge We will monitor labs while in hospital, as needed blood transfusion if hemoglobin less than 7 Oncology recommendation appreciated, will consider discharge when INR is therapeutic
[2020-05-05] MEDS: Warfarin Sodium 5 MG TAB PO SCH (17:37)
[2020-05-06] MEDS: Ondansetron ODT 4 MG TAB PO SCH ×6 (01:18→20:20)
[2020-05-06] MEDS: HYDROcodone/Acetaminophen 5/325 mg Tablet PO SCH ×4 (04:30→20:20)
[2020-05-06] MEDS: Ketorolac Tromethamine 30 MG/ML VIAL IVP SCH (04:31)
[2020-05-06] MEDS ORDERED: Warfarin Sodium 5 MG TAB PO SCH (08:09)
[2020-05-06] MEDS: Dexamethasone 4 MG TAB PO SCH ×2 (08:58→17:28)
[2020-05-06] MEDS: Docusate 100 MG CAP PO SCH ×2 (09:00→20:19)
[2020-05-06] MEDS: Enoxaparin Sodium 80 MG/0.8 ML SYRINGE SC SCH ×2 (09:00→20:19)
[2020-05-06] MEDS: Aspirin 81 mg Enteric Coated Tablet PO SCH (09:00)
[2020-05-06 09:33] LABS: INR-International Normal Ratio 1.5; Prothrombin Time 18.1 sec (12.0-14.7)
[2020-05-06] MEDS: Bicalutamide 50 MG TAB PO SCH (09:50)
[2020-05-06] MEDS ORDERED: Warfarin Sodium 7.5 MG TAB PO SCH (17:00)
--- NOTE | 2020-05-06 17:32 | PDOC.HOSPP ---
- Subjective Encounter Date: 05/06/20 Encounter Time: 15:00 Subjective: Patient up in bed denies any complaints - Objective Vital Signs & Weight: Vital Signs (12 hours) Temp Pulse Resp BP Pulse Ox 05/06/20 09:13 98.5 F 84 18 158/81 H 97 05/06/20 08:00 97 Weight Admit Weight 156 lb 14.4 oz Weight 156 lb 14.4 oz I&O: 05/05/20 05/06/20 05/07/20 06:59 06:59 06:59 Intake Total 1540 600 Balance 1540 600 Result Diagrams: 05/05/20 03:26 05/05/20 03:26 Hospitalist ROS - Review of Systems Respiratory: denies: cough, dry, shortness of breath, hemoptysis, SOB with excertion, pleuritic pain, sputum, wheezing, other Cardiovascular: denies: chest pain, palpitations, orthopnea, paroxysmal noc. dyspnea, edema, light headedness, other Gastrointestinal: denies: nausea, vomiting, abdominal pain, diarrhea, constipation, melena, hematochezia, other - Medication Medications: Active Medications Generic Name Dose Route Start Last Admin Trade Name Freq PRN Reason Stop Dose Admin Hydrocodone Bitart/Acetaminophen 1 tab 05/04/20 03:00 05/06/20 15:16 Hydrocodone/Acetaminophen 5/325 Mg Tablet PO Not Given 0300,0900,1500,2100 JOYCE Aspirin 81 mg 05/01/20 09:00 05/06/20 09:00 Aspirin 81 Mg Enteric Coated Tablet PO 81 mg DAILY JOYCE Administration Bicalutamide 50 mg 05/01/20 09:00 05/06/20 09:50 Bicalutamide 50 Mg Tab PO 50 mg DAILY JOYCE Administration Bisacodyl 10 mg 04/30/20 16:42 05/02/20 06:15 Bisacodyl 5 Mg Tab PO 10 mg DAILYPRN PRN Administration Constipation Bisacodyl 10 mg 04/30/20 20:46 04/30/20 21:12 Bisacodyl 10 Mg Supp CA 10 mg Q8H PRN Administration Constipation Dexamethasone 4 mg 05/01/20 17:00 05/06/20 17:28 Dexamethasone 4 Mg Tab PO 4 mg BID- JOYCE Administration Docusate Sodium 100 mg 05/04/20 09:00 05/06/20 09:00 Docusate 100 Mg Cap PO 100 mg BID JOYCE Administration Enoxaparin Sodium 70 mg 05/01/20 21:00 05/06/20 09:00 Enoxaparin Sodium 80 Mg/0.8 Ml Syringe SC 70 mg BID JOYCE Administration Melatonin 3 mg 05/02/20 00:01 05/03/20 22:13 Melatonin 3 Mg Tab PO 3 mg HS PRN Administration Insomnia Morphine Sulfate 2 mg 05/01/20 13:33 05/01/20 13:52 Morphine 2 Mg/Ml Vial SLOW IVP 2 mg Q4H PRN Administration Chest Pain Ondansetron HCl 4 mg 04/30/20 17:00 05/06/20 17:29 Ondansetron Odt 4 Mg Tab PO Not Given Q4HR JOYCE Senna/Docusate Sodium 2 tab 04/30/20 16:42 05/02/20 06:14 Senokot S 8.6-50 Mg Tab PO 2 tab BID PRN Administration Constipation Sodium Chloride 10 ml 05/04/20 09:00 05/06/20 09:00 Flush - Normal Saline 10 Ml Syringe IVF 10 ml Q12HR JOYCE Administration Sodium Chloride 10 ml 05/04/20 08:00 05/06/20 04:34 Flush - Normal Saline 10 Ml Syringe IVF 10 ml PRN PRN Administration Saline Flush Warfarin Sodium 7.5 mg 05/06/20 17:00 05/06/20 17:28 Warfarin Sodium 7.5 Mg Tab PO 7.5 mg 1700 JOYCE Administration - Exam Heart: negative: RRR, no murmur, no gallops, no rubs, normal peripheral pulses, irregular, diminshed peripheral pulses, murmur present, II/IV, III/IV Respiratory: negative: CTAB, no wheezes, no rales, no ronchi, normal chest expansion, no tachypnea, normal percussion, rales, rhonchi, tachypneic, wheezes Gastrointestinal: negative: soft, non-tender, non-distended, normal bowel sounds, no palpable masses, no hepatomegaly, no splenomegaly, no bruit, no guarding, no rigidity, tender to palpation, distended, diminished bowl sounds, voluntary guarding Extremities: negative: no cyanosis, no clubbing, no edema, 1+ LE edema, 2+ LE edema, clubbing Hosp A/P (1) Abnormal LFTs Code(s): R94.5 - ABNORMAL RESULTS OF LIVER FUNCTION STUDIES Status: Acute (2) Leukocytosis Code(s): D72.829 - ELEVATED WHITE BLOOD CELL COUNT, UNSPECIFIED Status: Acute (3) 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 - OTHER PULMONARY EMBOLISM WITHOUT ACUTE COR PULMONALE Status: Acute (4) Prostate cancer metastatic to bone Code(s): C61 - MALIGNANT NEOPLASM OF PROSTATE; C79.51 - SECONDARY MALIGNANT NEOPLASM OF BONE Status: Chronic - Plan Patient has no PCP. Patient's INR is still subtherapeutic we will continue Lovenox and increase the Coumadin dose to 7.5 mg daily and will get pharmacy to dose.
--- NOTE | 2020-05-06 17:49 | PDOC.PALFU ---
Palliative Care Follow-up Note Patient working with therapy, will follow up.
[2020-05-07] MEDS: Ondansetron ODT 4 MG TAB PO SCH ×6 (01:38→21:29)
[2020-05-07] MEDS: HYDROcodone/Acetaminophen 5/325 mg Tablet PO SCH ×4 (02:15→21:29)
[2020-05-07 07:44] LABS: INR-International Normal Ratio 1.7; Prothrombin Time 20.6 sec (12.0-14.7)
--- NOTE | 2020-05-07 08:21 | PDOC.PALCO ---
Palliative Care Consult - Consult Details Requesting Physician: Dr Woods Reason for Consult: goals of care, other (Prognosis Disease assist) - Pertinent HPI 64 year old male known to Palliative Care, diagnosis of metastatic prostate cancer currently on Casodex followed at the Cancer clinic. At oncology appointment he relayed he had chest pain and was transferred to [facility] for further evaluation. No nausea, vomiting, did confirm shortness of breath. Generalized pain to abdomen as well as back. Emergency room evaluation saw tachycardia, tachypnea with bilaterally atelectasis and pleural effusion. INR subtheraputic. - Pertinent PMH Metastatic prostate cancer to bone - Social History Smoking Status: Former smoker Smoking: no tobacco exposure Alcohol Use: none Drug Use History: none Living Situation: other (lives with family) - Medications MAR Reviewed: Yes - Allergies Allergies/Adverse Reactions: Allergies Allergy/AdvReac Type Severity Reaction Status Date / Time No Known Drug Allergies Allergy Verified 05/01/20 02:15 - Subjective Resting, complains of recent hemoptysis in night. No active cough at time of assessment. Constipation, adequate appetite. - ROS Constitutional: alert, weakness ENT: other (Denies throat irritation, congestion) Respiratory: hemoptysis Cardiology: other (Denies chest pain or palpitations) Gastrointestinal: constipation, other (denies nausea, vomiting) Musculoskeletal: back pain, other (bilaterally axilla discomfort) - Objective Vital Signs: Vital Signs - Most Recent Temp Pulse Resp BP Pulse Ox 98.2 F 92 16 125/71 97 05/06/20 20:00 05/06/20 20:00 05/06/20 20:00 05/06/20 20:00 05/06/20 20:00 Palliative Performance Scale: 50 - Physical Exam Constitutional: NAD, ill appearing HEENT: EOMI, moist MMs, sclera anicteric Respiratory: unlabored breathing Deviation from normal: slight mid right lobe expiratory wheeze Cardiovascular: RRR Gastrointestinal: soft, non-tender, positive bowel sounds Musculoskeletal: no cyanosis, no clubbing Neurology: moves all 4 limbs Skin: cap refill <2 seconds, no lesions, no rash Psychiatric: A&O x 3 - Problem List (1) Palliative care encounter Code(s): Z51.5 - ENCOUNTER FOR PALLIATIVE CARE Current Visit: Yes Status: Acute (2) Anemia of chronic disease Code(s): D63.8 - ANEMIA IN OTHER CHRONIC DISEASES CLASSIFIED ELSEWHERE Current Visit: Yes Status: Chronic (3) Prostate cancer metastatic to bone Code(s): C61 - MALIGNANT NEOPLASM OF PROSTATE; C79.51 - SECONDARY MALIGNANT NEOPLASM OF BONE Current Visit: Yes Status: Chronic (4) Bone metastasis Code(s): C79.51 - SECONDARY MALIGNANT NEOPLASM OF BONE Current Visit: No Status: Chronic - Plan/Recommendations Plan: Confirmed Full resuscitation with palliative Care RN. Attempted to complete Directive to physician however patient states his family is aware of his wishes and does not desire to complete document. *Pain a 5/10 Encouraged to ask for Beverly for breakthrough Would suggest increasing scheduled dose to better mitigate pain *Constipated - Deborah RN caring for patient to give schedules and prn medications, consideration to schedule Bisacodyl and Sennosides, as pre review of record no recent dose given. *Palliative care will revisit in relation to palliative measure of Casodex and discussion of disease trajectory and Goal of care. [50] minutes spent on this encounter with >50% of the time in counseling and coordination of care. Thank you for this very appropriate consult.
[2020-05-07] MEDS: Docusate 100 MG CAP PO SCH ×2 (08:30→21:28)
[2020-05-07] MEDS: Dexamethasone 4 MG TAB PO SCH ×2 (08:30→17:16)
[2020-05-07] MEDS: Aspirin 81 mg Enteric Coated Tablet PO SCH (08:30)
[2020-05-07] MEDS: Enoxaparin Sodium 80 MG/0.8 ML SYRINGE SC SCH ×2 (08:30→21:30)
[2020-05-07] MEDS: Morphine 2 MG/ML VIAL SLOW IVP PRN (08:35)
[2020-05-07] MEDS: Bicalutamide 50 MG TAB PO SCH (08:35)
--- NOTE | 2020-05-07 13:43 | PDOC.HOSPP ---
- Subjective Encounter Date: 05/07/20 Encounter Time: 13:40 Subjective: pt up in bed no complains - Objective Vital Signs & Weight: Vital Signs (12 hours) Temp Pulse Resp BP Pulse Ox 05/07/20 08:00 97.7 F 82 16 156/87 H 95 Weight Admit Weight 156 lb 14.4 oz Weight 156 lb 14.4 oz I&O: 05/06/20 05/07/20 05/08/20 06:59 06:59 06:59 Intake Total 1540 1555 Balance 1540 1555 Result Diagrams: 05/05/20 03:26 05/05/20 03:26 Hospitalist ROS - Review of Systems Cardiovascular: denies: chest pain, palpitations, orthopnea, paroxysmal noc. dyspnea, edema, light headedness, other Gastrointestinal: denies: nausea, vomiting, abdominal pain, diarrhea, constipation, melena, hematochezia, other Genitourinary: denies: dysuria, frequency, incontinence, hematuria, retention, other - Medication Medications: Active Medications Generic Name Dose Route Start Last Admin Trade Name Freq PRN Reason Stop Dose Admin Hydrocodone Bitart/Acetaminophen 1 tab 05/04/20 03:00 05/07/20 08:29 Hydrocodone/Acetaminophen 5/325 Mg Tablet PO 1 tab 0300,0900,1500,2100 JOYCE Administration Aspirin 81 mg 05/01/20 09:00 05/07/20 08:30 Aspirin 81 Mg Enteric Coated Tablet PO 81 mg DAILY JOYCE Administration Bicalutamide 50 mg 05/01/20 09:00 05/07/20 08:35 Bicalutamide 50 Mg Tab PO 50 mg DAILY JOYCE Administration Bisacodyl 10 mg 04/30/20 16:42 05/02/20 06:15 Bisacodyl 5 Mg Tab PO 10 mg DAILYPRN PRN Administration Constipation Bisacodyl 10 mg 04/30/20 20:46 04/30/20 21:12 Bisacodyl 10 Mg Supp [place] 10 mg Q8H PRN Administration Constipation Dexamethasone 4 mg 05/01/20 17:00 05/07/20 08:30 Dexamethasone 4 Mg Tab PO 4 mg BID-WM JOYCE Administration Docusate Sodium 100 mg 05/04/20 09:00 05/07/20 08:30 Docusate 100 Mg Cap PO 100 mg BID JOYCE Administration Enoxaparin Sodium 70 mg 05/01/20 21:00 05/07/20 08:30 Enoxaparin Sodium 80 Mg/0.8 Ml Syringe SC 70 mg BID JOYCE Administration Melatonin 3 mg 05/02/20 00:01 05/03/20 22:13 Melatonin 3 Mg Tab PO 3 mg HS PRN Administration Insomnia Morphine Sulfate 2 mg 05/01/20 13:33 05/07/20 08:35 Morphine 2 Mg/Ml Vial SLOW IVP 2 mg Q4H PRN Administration Chest Pain Ondansetron HCl 4 mg 04/30/20 17:00 05/07/20 08:30 Ondansetron Odt 4 Mg Tab PO 4 mg Q4HR OJYCE Administration Senna/Docusate Sodium 2 tab 04/30/20 16:42 05/02/20 06:14 Senokot S 8.6-50 Mg Tab PO 2 tab BID PRN Administration Constipation Sodium Chloride 10 ml 05/04/20 09:00 05/07/20 08:41 Flush - Normal Saline 10 Ml Syringe IVF 10 ml Q12HR JOYCE Administration Sodium Chloride 10 ml 05/04/20 08:00 05/06/20 04:34 Flush - Normal Saline 10 Ml Syringe IVF 10 ml PRN PRN Administration Saline Flush - Exam Heart: negative: RRR, no murmur, no gallops, no rubs, normal peripheral pulses, irregular, diminshed peripheral pulses, murmur present, II/IV, III/IV Respiratory: negative: CTAB, no wheezes, no rales, no ronchi, normal chest expansion, no tachypnea, normal percussion, rales, rhonchi, tachypneic, wheezes Gastrointestinal: negative: soft, non-tender, non-distended, normal bowel sounds, no palpable masses, no hepatomegaly, no splenomegaly, no bruit, no guarding, no rigidity, tender to palpation, distended, diminished bowl sounds, voluntary guarding Extremities: negative: no cyanosis, no clubbing, no edema, 1+ LE edema, 2+ LE edema, clubbing Hosp A/P (1) Abnormal LFTs Code(s): R94.5 - ABNORMAL RESULTS OF LIVER FUNCTION STUDIES Status: Acute (2) Leukocytosis Code(s): D72.829 - ELEVATED WHITE BLOOD CELL COUNT, UNSPECIFIED Status: Acute (3) 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 - OTHER PULMONARY EMBOLISM WITHOUT ACUTE COR PULMONALE Status: Acute (4) Prostate cancer metastatic to bone Code(s): C61 - MALIGNANT NEOPLASM OF PROSTATE; C79.51 - SECONDARY MALIGNANT NEOPLASM OF BONE Status: Chronic - Plan Patient has no PCP. Patient's INR is still subtherapeutic we will continue Lovenox and increase the Coumadin dose to 7.5 mg daily and will get pharmacy to dose. 05/07 pt up in bed no complains, pt's inr was 1.7 will increase to 10mg today. spoke with watch case polisher for outpatient coumdain dose adjustment for inr. pt has no insurance and no pcp.
[2020-05-07] MEDS ORDERED: Warfarin Sodium 10 MG TAB PO SCH (17:00)
[2020-05-07] MEDS: HYDROcodone/Acetaminophen 5/325 mg Tablet PO PRN (17:16)
[2020-05-08] MEDS: Ondansetron ODT 4 MG TAB PO SCH ×4 (00:36→12:58)
[2020-05-08] MEDS: HYDROcodone/Acetaminophen 5/325 mg Tablet PO SCH ×3 (03:40→15:28)
[2020-05-08] MEDS: Morphine 2 MG/ML VIAL SLOW IVP PRN (03:42)
[2020-05-08 06:56] LABS: Hemoglobin 7.9 g/dL (14.0-18.0); Mean Corpuscular HGB CONC 30.9 g/dL (32.0-36.0); Mean Corpuscular Hemoglobin 27.2 pg (27.0-31.0); Mean Corpuscular Volume 87.9 fL (78.0-98.0); Mean Platelet Volume 6.3 fL (7.4-10.4); Platelet Count 116 thou/uL (130-400); RBC Distribution Width 19.9 % (11.5-14.5); Red Blood Cell (RBC) Count 2.89 mill/uL (4.70-6.10)
[2020-05-08 06:58] LABS: INR-International Normal Ratio 2.3; Prothrombin Time 25.4 sec (12.0-14.7)
[2020-05-08 07:07] LABS: Anion Gap 15 mmol/L (10-20); BUN (Urea Nitrogen) 19 mg/dL (8.4-25.7); Calc. Creatinine Clearance 109 mL/min (70-130); Calcium 8.4 mg/dL (7.8-10.44); Carbon Dioxide 25 mmol/L (23-31); Chloride 105 mmol/L (98-107); Glucose 77 mg/dL (80-115); Potassium 4.4 mmol/L (3.5-5.1); Sodium 141 mmol/L (136-145)
[2020-05-08 08:50] VITALS: BP 154/79; TEMP 97.8
[2020-05-08] MEDS: Bicalutamide 50 MG TAB PO SCH (09:29)
[2020-05-08] MEDS: Dexamethasone 4 MG TAB PO SCH (09:29)
[2020-05-08] MEDS: Aspirin 81 mg Enteric Coated Tablet PO SCH (09:30)
[2020-05-08] MEDS: Docusate 100 MG CAP PO SCH (09:30)
[2020-05-08 10:04] LABS: Band 18 % (5-11); Lymphocytes 25 % (21-51); MDiff Complete? YES; Metamyelocyte 7 % (0-0); Monocytes 16 % (0-10); Myelocyte 6 % (0-0); Neutrophil 28 % (42-75); Nucleated RBC 17 % (0); Ovalocytes SLIGHT = 2-5 cells (100X) (0-1/hpf); Platelet Morphology Comment Appears Decreased; Polychromasia MODERATE = 3-4 cells (100X) (0-2/hpf); Tear Drops SLIGHT = 2-5 cells (100X) (0-1/hpf)
[2020-05-08] MEDS: HYDROcodone/Acetaminophen 5/325 mg Tablet PO PRN (12:58)
[2020-05-08] MEDS ORDERED: Warfarin Sodium 3 MG TAB PO SCH (17:00)
--- NOTE | 2020-05-08 23:09 | DIS ---
DATE OF ADMISSION: 04/30/2020 DATE OF DISCHARGE: 05/08/2020 DISCHARGE DIAGNOSES: As of the followin. Abnormal liver function tests. 2. Leukocytosis. 3. Thrombus in the pulmonary vein. 4. Prostate cancer with metastasis to the bone. HOSPITAL COURSE: The patient is a very pleasant 64-year-old male, who initially presented to the hospital for chest pain. He did undergo a stress test which was normal. At this time, the patient also had a CTA which indicated that he had no pulmonary embolism; however, a small linear thrombus in the first order branch of the left upper lobe pulmonary vein. He has extensive diffuse skeletal metastatic disease and centrilobular emphysema. The patient at this time was put on Lovenox, which was bridged to Coumadin. He continued to improve through the hospital stay. On discharge, his INR was 2.3. I did speak with the patient's sister, Ursula, and also the patient in regard to important followup. Initially, he was put on Coumadin 5 mg and this was then increased to 7.5 and then to 10. I have put him on 6 mg of Coumadin. He has a followup appointment with [facility] on Monday. I have encouraged the sister and the patient to follow up. Also, he will follow up with Oncology. HOME MEDICATIONS: Will be as of the following. He is going to be on 1. Senokot as needed. 2. Decadron 4 mg daily. 3. Warfarin 6 mg daily. 4. Casodex 50 mg daily. 5. Colace 100 mg twice a day. 6. [place] as needed. He has already had a script for [place]. I have told the patient to take 6 mg on Monday of Coumadin, 3 mg on Monday, 6 mg on Monday, 3 mg on Monday. I just want to make sure that he does not get supratherapeutic. His hemoglobin is on the lower side. I want to prevent any additional harm to the patient. I did educate the patient that if he has bleeding or dark stools or if he cuts himself and starts bleeding and he is unable to control, he needs to come into the ER for further evaluation. PHYSICAL EXAMINATION: VITAL SIGNS: On discharge, temperature 97.8, 88, 16, 96% on room air, 154/79. GENERAL: He is awake, alert, and oriented x3. Does not appear in any distress. CV: S1, S2 present. No murmurs, rubs, or gallops. Job ID: [id number]
--- NOTE | 2020-05-11 05:13 | PQF ---
CLINICAL DOCUMENTATION CLARIFICATION FORM: Dear : Irma Gao Date / Time: 05/11/2020 0512 Please exercise your independent, professional judgment in responding to the clarification form. Clinical indicators are provided on the bottom of this form for your review Please check appropriate box(es): [ ] Protein Calorie Malnutrition: [ ] Mild [ x ] Moderate [ ] Severe [ ] Other Malnutrition (please specify) [ ] Underweight without malnutrition [ ] Cachexia [ ] Other diagnosis [ ] Unable to determine In addition, please specify: Present on Admission (POA): [ x ] Yes [ ] No [ ] Unable to determine Physician Signature: Date/Time: For continuity of documentation, please document condition throughout progress notes and discharge summary. Thank You. To be completed by CDI/Coding staff for physician review: Present Clinical Indicators - Signs / Symptoms / Labs Results and Location in Medical Record [X] BP 112/68, Pulse 105, Resp 20, Temp 97.2 Vital signs 04/30 [X] BMI of 21.9 Nutritional assessment Dietitian Emilie 05/02 [X] Poor appetite Nutritional assessment Dietitian Emilie 05/02 [X] Weight loss Nutritional assessment Dietitian [facility] 05/02 [X] Serum Total protein 7.3, Albumin 3.1, Globulin 4.2, Ratio 0.7 Laboratory 04/30 Present Risk Factors Results and Location in Medical Record [X] 64 year-old Male H&P p1 04/30 Dr Woods [X] Metastatic Prostrate cancer to bones H&P p1 04/30 Dr Woods Present Treatments Results and Location in Medical Record [X] Dietary consult Nutritional assessment Dietitian Emilie 05/02 [X] Nutritional supplements Nutritional assessment Dietitian Emilie 05/02 [X] Weight monitoring Nutritional assessment Dietitian [facility] 05/02 [X] Oral intake monitoring Nutritional assessment Dietitian [facility] 05/02 [X] Appetite stimulant - medication Nutritional assessment Dietitian [facility] 05/02 CDS/Director Of Event Marketing Signature: Jocy Esquivel Phone #: ext [phone] Date/Time: 05/11/2020 0512 Moderate Malnutrition (in acute illness) ? Energy Intake: <75% of estimated energy requirement for > 7 days ? Weight Loss: 1-2%/1 week; 5%/ 1 month; 7.5%/3 months ? Other: mild body fat loss; mild muscle mass loss; mild fluid accumulation; Severe Malnutrition (in acute illness) ? Energy Intake: ? 50% of estimated energy requirement for ? 5 days ? Weight Loss: >2%/1 week; >5%/1 month; >7.5%/3 months ? Other: moderate body fat loss; moderate muscle mass loss; moderate- severe fluid accumulation; measurably reduced observer helper strength Moderate Malnutrition (in chronic illness) ? Energy Intake: <75% of estimated energy requirement for ?1 month ? Weight Loss: 5%/1 month; 7.5%/3 months; 10%/6 months; 20%/1 year ? Other: mild body fat loss; mild muscle mass loss; mild fluid accumulation Severe Malnutrition (in chronic illness) ? Energy Intake: ?75% of estimated energy requirement for ?1 month ? Weight Loss: >5%/1 month; >7.5%/3 months; >10%/6 months; >20%/1 year ? Other: severe body fat loss; severe muscle mass loss; severe fluid accumulation; measurably reduced observer helper strength This is a permanent part of the Medical Record [facility]
--- NOTE | 2020-05-11 05:14 | PQF ---
CLINICAL DOCUMENTATION CLARIFICATION FORM: Dear : Irma Gao Date / Time: 05/11/2020512 Please exercise your independent, professional judgment in responding to the clarification form. Clinical indicators are provided on the bottom of this form for your review Is Chest Pain associated with: Please check appropriate box(es): [ x ] Bone metastasis [ ] Thrombus in Pulmonary vein [ ] Other diagnosis [ ] Unable to determine Physician Signature: Date/Time: For continuity of documentation, please document condition throughout progress notes and discharge summary. Thank You. To be completed by CDI/Coding staff for physician review: Present Clinical Indicators - Signs / Symptoms / Labs Results and Location in Medical Record [X] BP 108/79, Pulse 105, Resp 24, Temp 98.9 Vital signs 04/30 [X] CT chest Impression: Small linear thrombus in SONIA pulmonary vein. Extensive diffuse, osteoblastic skeletal metastatic disease Imaging Dr Terry 04/30 [X] He has severe chest pain H&P p1 04/30 Dr Woods [X] noted to be tachypnic and tachycardia H&P p1 04/30 Dr Woods [X] Extensive bone metastasis Consult Dr Lamar 05/01 [X] Thrombus in Pulmonary vein Consult Dr Lamar 05/01 Present Risk Factors Results and Location in Medical Record [X] 64 year-old Male H&P p1 04/30 Dr Woods [X] Prostate cancer H&P p1 04/30 Dr Woods [X] Extensive bone metastasis Consult Dr Lamar 05/01 Present Treatments Results and Location in Medical Record [X] Aspirin Chewable 81 mg SEP 03 [X] Lovenox 70 mg SC SEP 03 [X] IV Toradol 15 mg SEP 03 [X] IV Morphine 2 mg SEP 03 [X] Chest X-ray Imaging Dr Gaines 04/30 [X] CT chest Imaging Dr Terry 04/30 [X] Onco consult Consult Dr Lamar 05/01 CDS/Dimethylaniline Sulfator Operator Signature: Jocy Esquivel Phone #: [phone] Date/Time: 05/11/2020512 This is a permanent part of the Medical Record [facility]
== END 2020-05-08 16:30 | disposition home or self-care (01) | DRG 542 ==
LOC: ERS 12:16 → ONC 16:49 → UNDOADMIN 16:50 → ONC 16:50
PROVIDERS: ADMIT Internal Medicine; ATTEND Internal Medicine
PROC: 30233N1 Transfusion of Nonautologous Red Blood Cells into Peripheral Vein, Percutaneous Approach (ICD-10-PCS; principal; 2020-05-02)
DX: C79.51 Secondary malignant neoplasm of bone (principal); I26.99 Other pulmonary embolism without acute cor pulmonale; D61.818 Other pancytopenia; C77.9 Secondary and unspecified malignant neoplasm of lymph node, unspecified; E44.0 Moderate protein-calorie malnutrition; Z51.5 Encounter for palliative care; Z20.828 Contact with and (suspected) exposure to other viral communicable diseases; C61 Malignant neoplasm of prostate; J43.9 Emphysema, unspecified; D63.8 Anemia in other chronic diseases classified elsewhere; Z87.891 Personal history of nicotine dependence; Z79.899 Other long term (current) drug therapy; Z91.19 Patient's noncompliance with other medical treatment and regimen; Z68.21 Body mass index [BMI] 21.0-21.9, adult
CPT/HCPCS: 36415; 36430; 36600; 71045; 71275; 74177; 76705; 78452; 80048; 80053; 80061; 80076; 82140; 82550; 83036; 83605; 84443; 84484; 85025; 85610; 85730; 86850; 86900; 86901; 87040; 87635; 93005; 93017; 94760; 96365; 96366; 96367; 96368; A9500; J0153; J0692; J1650; J1885; J1956; J2270; J3370; J7050; J8540; J9202; P9016; Q0162; Q9967; U0003

== ENCOUNTER 2020-05-30 14:28 | Emergency (ER) | payer SELFPAY ==
[2020-05-30] MEDS ORDERED: Iopamidol-370 76% 500 ML 1 ML ONE (14:31)
[2020-05-30 15:04] LABS: Mean Corpuscular HGB CONC 31.6 g/dL (32.0-36.0); Mean Corpuscular Hemoglobin 27.7 pg (27.0-31.0); Mean Corpuscular Volume 87.7 fL (78.0-98.0); Mean Platelet Volume 10.1 fL (7.4-10.4); Platelet Count 100 thou/uL (130-400); RBC Distribution Width 18.2 % (11.5-14.5); Red Blood Cell (RBC) Count 2.51 mill/uL (4.70-6.10)
[2020-05-30 15:22] LABS: ALT (SGPT) 55 U/L (8-55); AST (SGOT) 40 U/L (5-34); Albumin 3.5 g/dL (3.4-4.8); Alkaline Phosphatase 183 U/L (40-110); Anion Gap 20 mmol/L (10-20); BUN (Urea Nitrogen) 20 mg/dL (8.4-25.7); Bilirubin, Total 0.6 mg/dL (0.2-1.2); Calc. Creatinine Clearance 0 mL/min (70-130); Calcium 9.5 mg/dL (7.8-10.44); Carbon Dioxide 22 mmol/L (23-31); Chloride 96 mmol/L (98-107); Glucose 104 mg/dL (80-115); Potassium 4.7 mmol/L (3.5-5.1); Protein, Total 7.5 g/dL (5.8-8.1); Sodium 133 mmol/L (136-145)
[2020-05-30 15:29] LABS: Anisocytosis MODERATE=16-30 cells (100X) (0-5/hpf); Band 15 % (5-11); Differential Comment Immature Cell(s); Hypochromia SLIGHT = 6-15 cells (100X) (0-5/hpf); Lymphocytes 16 % (21-51); MDiff Complete? YES; Metamyelocyte 8 % (0-0); Monocytes 18 % (0-10); Myelocyte 12 % (0-0); Neutrophil 20 % (42-75); Nucleated RBC 6 % (0); Platelet Morphology Comment Appears Decreased; Polychromasia MODERATE = 3-4 cells (100X) (0-2/hpf); Reactive Lymphocytes 8 % (0-10); Reflex for Review?? YES; Tear Drops SLIGHT = 2-5 cells (100X) (0-1/hpf); White Blood Cell (WBC) Count 8.7 thou/uL (4.8-10.8)
[2020-05-30 15:40] LABS: PTT 62.5 sec (22.9-36.1); Prothrombin Time 23.1 sec (12.0-14.7)
--- NOTE | 2020-05-30 18:20 | CT ---
EXAM: CT ABDOMEN AND PELVIS HISTORY: Lower abdominal pain radiating into the back. History of prostate cancer. COMPARISON: 04/30/2020 Procedure: Multiple contiguous axial images were obtained and a CT of the abdomen and pelvis with IV contrast. C oronal reformats were performed. FINDINGS: Lower Chest: Chronic changes. Vessels: Normal caliber aorta. Heart: Normal heart size. Moderate pericardial fluid, anterior and inferior pericardium Abdomen: Portal vein:Patent Gallbladder: No calcified gallstones. Normal caliber wall. Liver: within normal limits. Pancreas: within normal limits. Spleen: within normal limits. Adrenals: within normal limits. Kidneys: Symmetric enhancement. Redemonstration of hypodensities in the left and right renal cortex, compatible with cortical cysts. No obstructive uropathy Peritoneum: No ascites or free air, no fluid collection. Bowel: Limited evaluation due to the lack of oral contrast administration. No evidence of bowel obstr uction. Ileocecal junction is unremarkable. Normal caliber appendix. Scattered fecal material in a nondistended, nondilated colon. Mucosal and serosal prominence involving the sigmoid colon and rectum . Correlate for colitis. Mesentery and Retroperitoneum: No enlarged mesenteric or retroperitoneal lymph nodes. Abdominal Wall: within normal limits. Pelvis: Reproductive Organs: Findings compatible with prostatectomy. Pelvis: Enlarged right external iliac lymph node measuring 1.0 x 1.0 cm. Enlarged right inguinal lymp h node measuring 1.2 x 1.2 cm. Bladder: within normal limits. Bones: Diffuse sclerosis, unchanged. No definite pathologic fracture. Grade 1 anterolisthesis of L4-5 upon S1 with associated spondylolysis, unchanged. IMPRESSION: 1. No evidence of acute intraabdominal\pelvic abnormality. 2. Diffuse osseous metastases, unchanged. 3. Enlarged right hemipelvic and inguinal lymph nodes, similar to the previous examination.
[2020-05-30 18:31] LABS: Bilirubin Negative (Negative); Blood, Urine Negative (Negative); Clarity Clear (Clear); Glucose, Urine (Dipstick) Normal (Negative); Ketone, Urine Negative (Negative); Leukocyte Negative Leu/uL (Negative); Nitrite Negative (Negative); Protein, Urine (Dipstick) Negative (Neg-Trace); Specific Gravity, Urine 1.021 (1.002-1.036); Urobilinogen Normal mg/dL (Less than 2); pH, Urine 6.5 (5.0-9.0)
== END 2020-05-30 20:00 | disposition home or self-care (01) ==
LOC: ERS 14:28
DX: R10.9 Unspecified abdominal pain (principal); C61 Malignant neoplasm of prostate; M54.5 Low back pain; D64.9 Anemia, unspecified; Z79.899 Other long term (current) drug therapy; Z79.01 Long term (current) use of anticoagulants; Z79.891 Long term (current) use of opiate analgesic; Z87.891 Personal history of nicotine dependence
CPT/HCPCS: 36415; 74177; 80053; 81003; 85025; 85060; 85610; 85730; 86850; 86900; 86901; Q9967

== ENCOUNTER 2020-06-16 11:51 | Emergency (ER) | payer OTHER ==
[2020-06-16 12:48] LABS: INR-International Normal Ratio 1.3; PTT 31.8 sec (22.9-36.1); Prothrombin Time 16.8 sec (12.0-14.7)
[2020-06-16 12:56] LABS: Hemoglobin 7.3 g/dL (14.0-18.0); Mean Corpuscular HGB CONC 29.5 g/dL (32.0-36.0); Mean Corpuscular Hemoglobin 25.5 pg (27.0-31.0); Mean Corpuscular Volume 86.3 fL (78.0-98.0); Mean Platelet Volume 9.8 fL (7.4-10.4); Platelet Count 156 thou/uL (130-400); RBC Distribution Width 18.3 % (11.5-14.5); Red Blood Cell (RBC) Count 2.87 mill/uL (4.70-6.10); White Blood Cell (WBC) Count 9.9 thou/uL (4.8-10.8)
[2020-06-16 12:59] LABS: ALT (SGPT) 29 U/L (8-55); AST (SGOT) 24 U/L (5-34); Albumin 3.6 g/dL (3.4-4.8); Alkaline Phosphatase 223 U/L (40-110); Anion Gap 21 mmol/L (10-20); BUN (Urea Nitrogen) 11 mg/dL (8.4-25.7); Bilirubin, Total 0.7 mg/dL (0.2-1.2); Calc. Creatinine Clearance 0 mL/min (70-130); Calcium 9.1 mg/dL (7.8-10.44); Carbon Dioxide 20 mmol/L (23-31); Chloride 102 mmol/L (98-107); Globulin 4.1 g/dL (2.4-3.5); Glucose 96 mg/dL (80-115); Lipase 5 U/L (8-78); Potassium 3.8 mmol/L (3.5-5.1); Protein, Total 7.7 g/dL (5.8-8.1); Sodium 139 mmol/L (136-145)
--- NOTE | 2020-06-16 13:08 | RAD ---
EXAM: XR Chest 1 View Portable PROVIDED CLINICAL HISTORY: Dyspnea COMPARISON: 05/03/2020 FINDINGS: Cardiac and mediastinal silhouette is similar in appearance. There is blunting of both costophrenic a ngles that may reflect pleural thickening or pleural fluid. There are bilateral pleural-based masses, most conspicuously involving the midportion of the left hemithorax laterally. No definite foc al airspace disease. No evidence for pneumothorax. IMPRESSION: Development of pleural-based masses involving both hemithoraces as well as bilateral pleural fluid or pleural thickening.
[2020-06-16 13:19] LABS: Band 26 % (5-11); Lymphocytes 9 % (21-51); MDiff Complete? YES; Metamyelocyte 9 % (0-0); Monocytes 11 % (0-10); Myelocyte 8 % (0-0); Neutrophil 37 % (42-75); Nucleated RBC 2 % (0); Platelet Morphology Comment Appears Adequate; Polychromasia MODERATE = 3-4 cells (100X) (0-2/hpf); Rouleaux Formation SLIGHT = 1-5 cells (100X) (None Seen); Tear Drops SLIGHT = 2-5 cells (100X) (0-1/hpf)
[2020-06-16 13:23] LABS: Bacteria/HPF None Seen HPF (None Seen); Bilirubin Negative (Negative); Blood, Urine Negative (Negative); Clarity Clear (Clear); Glucose, Urine (Dipstick) Normal (Negative); Ketone, Urine Negative (Negative); Leukocyte Negative Leu/uL (Negative); Nitrite Negative (Negative); Protein, Urine (Dipstick) 30 mg/dL (Neg-Trace); RBC/HPF 0-3 HPF (0-3); Specific Gravity, Urine 1.024 (1.002-1.036); Squamous Epithelial None Seen HPF (0-3); WBC/HPF 0-3 HPF (0-3); pH, Urine 6.5 (5.0-9.0)
== END 2020-06-16 14:17 | disposition home or self-care (01) ==
LOC: ERS 11:51
DX: R10.13 Epigastric pain (principal); R60.0 Localized edema; Z79.899 Other long term (current) drug therapy
CPT/HCPCS: 71045; 80053; 81003; 81015; 83690; 83880; 84484; 85025; 85610; 85730; 93005

== ENCOUNTER 2020-06-29 17:33 | Inpatient (IN) | payer OTHER, SELFPAY ==
[2020-06-29] MEDS ORDERED: Morphine 4 MG/ML VIAL ONE ×2 (18:21→19:17)
[2020-06-29] MEDS ORDERED: Ondansetron PF 4 MG/2 ML Vial ONE (18:21)
[2020-06-29 18:42] LABS: #Basophils 0.1 thou/uL (0.0-0.2); #Lymphocytes 1.7 thou/uL (1.20-3.40); #Monocytes 1.3 thou/uL (0.11-0.59); #Neutrophils 6.3 thou/uL (1.40-6.50); %Basophils 0.7 % (0.0-1.0); %Eosinophils 0.5 % (0.0-10.0); %Monocytes 13.3 % (0.0-10.0); %Neutrophils 67.6 % (42.0-75.0); Hemoglobin 6.1 g/dL (14.0-18.0); Mean Corpuscular HGB CONC 30.3 g/dL (32.0-36.0); Mean Corpuscular Hemoglobin 26.1 pg (27.0-31.0); Mean Platelet Volume 9.6 fL (7.4-10.4); Platelet Count 168 thou/uL (130-400); RBC Distribution Width 18.1 % (11.5-14.5); Red Blood Cell (RBC) Count 2.35 mill/uL (4.70-6.10); White Blood Cell (WBC) Count 9.4 thou/uL (4.8-10.8)
[2020-06-29 18:48] LABS: INR-International Normal Ratio 1.5; Prothrombin Time 18.3 sec (12.0-14.7)
[2020-06-29 19:03] LABS: ALT (SGPT) 12 U/L (8-55); AST (SGOT) 29 U/L (5-34); Albumin 3.4 g/dL (3.4-4.8); Alkaline Phosphatase 176 U/L (40-110); Anion Gap 23 mmol/L (10-20); BUN (Urea Nitrogen) 20 mg/dL (8.4-25.7); Bilirubin, Total 0.9 mg/dL (0.2-1.2); Calc. Creatinine Clearance 0 mL/min (70-130); Calcium 8.4 mg/dL (7.8-10.44); Carbon Dioxide 21 mmol/L (23-31); Chloride 102 mmol/L (98-107); Globulin 3.4 g/dL (2.4-3.5); Glucose 97 mg/dL (80-115); Lipase Less than 4 U/L (8-78); Potassium 4.8 mmol/L (3.5-5.1); Protein, Total 6.8 g/dL (5.8-8.1); Sodium 141 mmol/L (136-145)
--- NOTE | 2020-06-30 00:45 | PDOC.HHP ---
Hospitalist HPI - History of Present Illness weakness History of Present Illness: 64 yr old AA male with known met prostate cancer , recent PE 2 months ago on Coumadin -Admitted after progressive weakness, inability to move , diffuse body pains , self stopped meds since last 2 weeks -Patient was noted with low h/h at 6.1 -He denies any bleeding , no hematochezia or hematemesis -State he ran out of his meds except his pain pills, -states he sees Dr Valenzuela and is scheduled to have start chemo soon, record review shows he has been on casodex and getting intermoittent zoladex shots -He describe being told by his oncologist of a planned chemo regime. -he is worried about his lack of ambulation and state he will like to get better .Getting 2 unit of PRBC now Hospitalist ROS - Review of Systems Constitutional: reports: weakness, malaise Eyes: denies: pain, vision change, conjunctivae inflammation, eyelid inflammation, redness, other ENT: denies: ear pain, ear discharge, nose pain, nose discharge, nose congestion, mouth pain, mouth swelling, throat pain, throat swelling, other Respiratory: denies: cough, dry, shortness of breath, hemoptysis, SOB with excertion, pleuritic pain, sputum, wheezing, other Cardiovascular: denies: chest pain, palpitations, orthopnea, paroxysmal noc. dyspnea, edema, light headedness, other Gastrointestinal: denies: nausea, vomiting, abdominal pain, diarrhea, constipation, melena, hematochezia, other Genitourinary: denies: dysuria, frequency, incontinence, hematuria, retention, other Musculoskeletal: reports: neck pain, shoulder pain, arm pain, back pain, hand pain, leg pain, foot pain, other Neurological: reports: weakness Hospitalist History - Past Medical History Pulmonary: reports: hypertension, lung disease, pulmonary embolism Renal/: reports: Other (prostate cancer) - Exam General Appearance: ill appearing General - other findings: chronically Eye: PERRL, anicteric sclera ENT: normocephalic atraumatic, moist mucosa Neck: supple, no carotid bruit Heart: RRR, murmur present Respiratory: rales, tachypneic Gastrointestinal: soft, non-tender, no palpable masses Extremities: no cyanosis, 2+ LE edema Skin: normal turgor, no lesions Neurological: cranial nerve grossly intact, no focal deficits Musculoskeletal: normal tone, normal strength Psychiatric: A&O x 3 Hospitalist Results - Labs Result Diagrams: 06/29/20 18:06/29/20 18 Lab results: WBC 9.4 thou/uL (4.8-10.8) 06/29/20 18: Hgb 6.1 g/dL (14.0-18.0) L 06/29/20 18: Hct 20.3 % (42.0-52.0) L 06/29/20 18: MCV 86.0 fL (78.0-98.0) 06/29/20 18: Plt Count 168 thou/uL (130-400) 06/29/20 18: Neutrophils % 67.6 % (42.0-75.0) 06/29/20 18: Sodium 141 mmol/L (136-145) 06/29/20 18: Potassium 4.8 mmol/L (3.5-5.1) 06/29/20: Chloride 102 mmol/L (98-107) 06/29/20 18: Carbon Dioxide 21 mmol/L (23-31) L 06/29/20 18: BUN 20 mg/dL (8.4-25.7) 06/29/20 18: Creatinine 0.85 mg/dL (0.7-1.3) 06/29/20 18: Glucose 97 mg/dL (80-115) 06/29/20 18: Calcium 8.4 mg/dL (7.8-10.44) 06/29/20: Total Bilirubin 0.9 mg/dL (0.2-1.2) 06/29/20 18: AST 29 U/L (5-34) 06/29/20 18: ALT 12 U/L (8-55) 06/29/20 18: Alkaline Phosphatase 176 U/L (40-110) H 06/29/20 18: Troponin I Less than 0.010 ng/mL (< 0.028) 06/29/20 18: Serum Total Protein 6.8 g/dL (5.8-8.1) 06/29/20 18 Albumin 3.4 g/dL (3.4-4.8) 06/29/20 18:27 Lipase Less than 4 U/L (8-78) L 06/29/20 18:27 Hospitalist H&P A/P - Problem (1) Prostate cancer metastatic to bone Code(s): C61 - MALIGNANT NEOPLASM OF PROSTATE; C79.51 - SECONDARY MALIGNANT NEOPLASM OF BONE Status: Acute (2) Symptomatic anemia Code(s): D64.9 - ANEMIA, UNSPECIFIED Status: Acute (3) 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 - OTHER PULMONARY EMBOLISM WITHOUT ACUTE COR PULMONALE Status: Acute - Plan Plan: #Anemia - may be due to occult GI bleed - obtain stools for occult blood - follow with PRBC 2 unit today - repeat h/h in am #Recent PE- on Coumadin but non adherent -low INR at 1.5 noted now - will not resume Coumadin yet since r/o GIB - start low dose lovenox for now - LE edema may be due to DVT , follow LE doppler #Dyspnea - may be due to b/l pleural effusion vs lung mets noted on prior chest imaging vs recurrent PE -follow repeat CXR today - monitor levels post PRBC - if worsening , may need diuresis #Met PROSTATE CANCER - Resume casodex , follow oncology #Asthenia - obtain PT/OT eval pt describe social issues and potential homelessness, will consult case mgt #Advance directive - patient is hopeful of benefit of planned chemo regime by his oncologist. -low benefit of CPR in his current state discussed and he is transiently agreeable to DNR but later wants more time to think about it
[2020-06-30] MEDS ORDERED: Zolpidem Tartrate 5 MG TAB PO PRN (00:54)
[2020-06-30] MEDS ORDERED: Ondansetron PF 4 MG/2 ML Vial IVP PRN (00:54)
[2020-06-30] MEDS ORDERED: Morphine 2 MG/ML VIAL SLOW IVP PRN (00:56)
[2020-06-30 01:42] VITALS: BMI 19.5
[2020-06-30 02:01] LABS: Iron 31 ug/dL (65-175); Iron Binding Capacity, Total 136 mcg/dL (261-462)
[2020-06-30] MEDS: HYDROcodone/Acetaminophen 5/325 mg Tablet PO PRN ×4 (03:30→22:03)
[2020-06-30 05:40] LABS: Hemoglobin 6.7 g/dL (14.0-18.0); Mean Corpuscular HGB CONC 30.4 g/dL (32.0-36.0); Mean Corpuscular Hemoglobin 26.2 pg (27.0-31.0); Mean Corpuscular Volume 86.2 fL (78.0-98.0); Mean Platelet Volume 9.5 fL (7.4-10.4); Platelet Count 163 thou/uL (130-400); Red Blood Cell (RBC) Count 2.56 mill/uL (4.70-6.10); White Blood Cell (WBC) Count 9.7 thou/uL (4.8-10.8)
[2020-06-30 06:05] LABS: MDiff Complete? YES
[2020-06-30 06:06] LABS: Band 26 % (5-11); Eosinophils 1 % (0-10); Lymphocytes 10 % (21-51); Metamyelocyte 4 % (0-0); Monocytes 16 % (0-10); Myelocyte 9 % (0-0); Neutrophil 34 % (42-75); Nucleated RBC 4 % (0); Tear Drops SLIGHT = 2-5 cells (100X) (0-1/hpf)
[2020-06-30 06:35] LABS: SARS-CoV-2 MS2 Positive; SARS-CoV-2 N Gene Negative; SARS-CoV-2 S Gene Negative; SARS-CoV-2 by NAA Not Detected (NotDetected); SARS-CoV-2 orf1ab Negative
--- NOTE | 2020-06-30 07:58 | ULT ---
EXAM: Bilateral lower extremity venous Doppler HISTORY: Bilateral lower extremity edema and numbness. Pitting edema. Patient unable to walk for 2 months. His tory of pulmonary embolism 2 months ago. FINDINGS: Grayscale, color-flow, Doppler evaluation, spectral analysis of the bilateral lower extremity venous structures is performed with 2-D imaging. The bilateral common femoral, superficial femoral, popliteal, posterior tibial, proximal greater saphenous and profunda femoral veins are imaged. There is normal luminal compressibility, flow, and augmentation in the visualized deep venous structu res of the bilateral lower extremities. Bilateral lower extremity subcutaneous edema is identified. Mildly prominent lymph node is seen in the right inguinal region measuring 1.1 cm in short axis dimen karlene. This is nonspecific but may be reactive in origin. IMPRESSION: 1. No evidence of a deep vein thrombosis in the visualized deep venous structures bilateral lower ext remities. 2. Mildly prominent right inguinal lymph node which is nonspecific. 3. Bilateral lower extremity subcutaneous edema.
[2020-06-30] MEDS: Enoxaparin Sodium 40 MG/0.4 ML SYRINGE SC SCH (09:34)
[2020-06-30] MEDS: Bicalutamide 50 MG TAB PO SCH (09:35)
[2020-06-30] MEDS: Famotidine 20 MG TAB PO SCH ×2 (09:35→22:04)
--- NOTE | 2020-06-30 10:09 | RAD ---
EXAM: CHEST ONE VIEW HISTORY: Metastatic cancer. COMPARISON: 06/16/2020 FINDINGS: Cardiac silhouette is magnified by projection. Pulmonary vasculature is at the upper limits of normal . Again noted is persistent blunting of each lateral costophrenic angle. Previously seen bilateral pleural-based masses are again noted. Masses at the lateral aspect left midlung zone and right lung b ase do appear mildly enlarged compared to the prior exam. Calcified right hilar/mediastinal lymph nodes are seen. There is a sclerotic appearance of multiple thoracic vertebral bodies. IMPRESSION: 1. Persistent pleural-based masses each hemithorax which appear slightly larger in size. 2. Small bilateral pleural effusions. 3. Sclerotic metastatic lesions involving the thoracic spine.
[2020-06-30] MEDS ORDERED: Methylnaltrexone 12 MG/0.6 ML VIAL SC SCH (12:00)
[2020-06-30] MEDS: Bisacodyl 5 MG TAB PO PRN (17:47)
--- NOTE | 2020-06-30 17:50 | PDOC.HOSPP ---
- Subjective Encounter Date: 06/30/20 Encounter Time: 08:00 Subjective: Patient seen for follow-up regarding symptomatic anemia. Reports generalized weakness. He denies fevers or chills. Reports constipation. - Objective Vital Signs & Weight: Vital Signs (12 hours) Temp Pulse Resp BP Pulse Ox 06/30/20 17:42 110 H 94 L 06/30/20 11:56 99.8 F H 113 H 20 87/50 L 94 L 06/30/20 08:00 98.8 F 115 H 22 H 94/56 L 95 Weight Weight 140 lb I&O: 06/29/20 06/30/20 07/01/20 06:59 06:59 06:59 Output Total 800 Balance -800 Result Diagrams: 06/30/20 04:53 06/29/20 18:27 Additional Labs: Labs and MAR reviewed by in Hospitalist ROS - Review of Systems Constitutional: reports: weakness Cardiovascular: denies: chest pain, palpitations, orthopnea, paroxysmal noc. dyspnea, edema, light headedness Gastrointestinal: denies: nausea, vomiting, abdominal pain, diarrhea, constipation, melena, hematochezia - Medication Medications: Active Medications Generic Name Dose Route Start Last Admin Trade Name Freq PRN Reason Stop Dose Admin Hydrocodone Bitart/Acetaminophen 1 tab 06/30/20 00:54 06/30/20 17:46 Hydrocodone/Acetaminophen 5/325 Mg Tablet PO 1 tab Q4H PRN Administration Moderate Pain (4-6) Bicalutamide 50 mg 06/30/20 09:00 06/30/20 09:35 Bicalutamide 50 Mg Tab PO 50 mg DAILY JOYCE Administration Bisacodyl 10 mg 06/30/20 00:54 06/30/20 17:47 Bisacodyl 5 Mg Tab PO 10 mg DAILYPRN PRN Administration Constipation Enoxaparin Sodium 40 mg 06/30/20 09:00 06/30/20 09:34 Enoxaparin Sodium 40 Mg/0.4 Ml Syringe SC 40 mg 0900 JOYCE Administration Famotidine 20 mg 06/30/20 09:00 06/30/20 09:35 Famotidine 20 Mg Tab PO 20 mg BID JOYCE Administration - Exam General Appearance: awake alert Eye: scleral icterus ENT: moist mucosa Neck: supple Heart: RRR Respiratory: CTAB Gastrointestinal: soft, non-tender Skin: no rashes Psychiatric: normal affect Hosp A/P - Plan -Assessment (1) Symptomatic anemia Code(s): D64.9 - ANEMIA, UNSPECIFIED Status: Acute (2) Prostate cancer metastatic to bone Code(s): C61 - MALIGNANT NEOPLASM OF PROSTATE; C79.51 - SECONDARY MALIGNANT NEOPLASM OF BONE Status: Acute (3) 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 - OTHER PULMONARY EMBOLISM WITHOUT ACUTE COR PULMONALE Status: Acute - Plan Status post 1 unit packed RBC transfusion. Follow H&H. Pain management. Patient had recent pulmonary venous thrombus. Was supposed to be on warfarin but INR is subtherapeutic. Hold warfarin for now given possibility of GI bleed. Continue Casodex. Oncology consult pending. Ambulate patient. Relistor for constipation. Daily MiraLAX.
--- NOTE | 2020-06-30 20:40 | CON ---
DATE OF CONSULTATION: REASON FOR CONSULT: Prostate cancer. HISTORY OF PRESENT ILLNESS: Mr. Lopez is a 64-year-old gentleman, who was diagnosed with metastatic prostate cancer in 2015. He underwent Lupron injections for couple of years and unfortunately progressed. He did not start any further treatment. He showed up on this at [facility] in February with bilateral lower extremity weakness and pain. He had imaging done which showed extensive metastatic disease in his bones. He had retroperitoneal and pelvic lymphadenopathy. He also had a pulmonary vein DVT. He received Zoladex and was started on Casodex, but unfortunately stopped after 2 to 3 weeks due to noncompliance. He was seen on May 18. He was supposed to be taking Xtandi, but apparently never started it. He also stopped taking his Coumadin. He presents to the hospital yesterday with a history of progressive weakness, inability to walk, diffuse pain. On admission, his hemoglobin was low at 6.1. He has a baseline of around 7 for us as he has extensive bone marrow involvement. He was transfused 1 unit of packed RBCs. Stool guaiac is currently pending. His INR was 1.5 on admission. PAST MEDICAL HISTORY: 1. Metastatic prostate cancer. 2. Anemia. 3. Pulmonary vein DVT. ALLERGIES: NO KNOWN DRUG ALLERGIES. HOME MEDICATIONS: [place]. FAMILY HISTORY: Sister had bone cancer. Grandmother had breast and colon cancer. SOCIAL HISTORY: , lives with his sister, 42 pack-year history of smoking. No alcohol or illicit drug use. REVIEW OF SYSTEMS: A 10-point review of systems is negative except for noted in HPI. PHYSICAL EXAMINATION: VITAL SIGNS: Temperature is 99.8, pulse is 113, respiratory rate 20, blood pressure is 87/50. He is 94% on room air. GENERAL: This is a frail male, in mild distress. HEENT: Normocephalic, atraumatic. NECK: Supple. CV: Regular rate and rhythm. He is tachycardic. LUNGS: Clear anterior. ABDOMEN: Soft. Bowel sounds are positive. EXTREMITIES: He has 2+ bilateral lower extremity edema. SKIN: No rash. HEMATOLOGICAL: No petechiae or purpura. NEUROLOGICAL: Just gross motor in his lower extremities. PERTINENT LABORATORY DATA AND X-RAYS: WBCs of 9.7, hemoglobin 6.7, hematocrit 22.1, platelet count 163,000, 34% neutrophils, 26% bands, 10% lymphocytes. PT is 18.3, INR is 1.5, and PTT is 51. Sodium 141, potassium 4.8, chloride 102, CO2 is 21, BUN is 20, creatinine 0.85, calcium 8.4, magnesium 1.5. Iron is 31, TIBC is 136. Bilirubin is 0.9, AST is 29, ALT is 12, alkaline phosphatase is 176. Troponin negative. Serum total protein 6.8, albumin 3.4, globulin 3.4, lipase less than 4. PSA is 93.31. COVID PCR negative. Venogram of his lower extremities is negative for DVT. ASSESSMENT: 1. Metastatic prostate cancer. 2. Noncompliance. 3. Progressive weakness. DISCUSSION: Case was discussed with Dr. Aguilera. He has become significantly weak and inability to stand. He stopped taking Xtandi and coumadin. He is having intractable pain. He has social issues that have made treatment difficult. We discussed symptom management. We will consult [facility] for further assistance. Thank you for the consult. Job ID: [id number] [facility]
[2020-06-30] MEDS: Senokot S 8.6-50 MG TAB PO SCH (22:04)
[2020-07-01 07:29] LABS: ALT (SGPT) 20 U/L (8-55); AST (SGOT) 36 U/L (5-34); Albumin 2.9 g/dL (3.4-4.8); Alkaline Phosphatase 197 U/L (40-110); Anion Gap 19 mmol/L (10-20); BUN (Urea Nitrogen) 16 mg/dL (8.4-25.7); Bilirubin, Total 0.7 mg/dL (0.2-1.2); Calc. Creatinine Clearance 91 mL/min (70-130); Calcium 8.5 mg/dL (7.8-10.44); Carbon Dioxide 19 mmol/L (23-31); Chloride 103 mmol/L (98-107); Globulin 3.5 g/dL (2.4-3.5); Glucose 80 mg/dL (80-115); Potassium 4.4 mmol/L (3.5-5.1); Protein, Total 6.4 g/dL (5.8-8.1); Sodium 137 mmol/L (136-145)
[2020-07-01] MEDS: Famotidine 20 MG TAB PO SCH ×2 (09:22→20:51)
[2020-07-01] MEDS: Senokot S 8.6-50 MG TAB PO SCH ×2 (09:22→20:54)
[2020-07-01] MEDS: Polyethylene Glycol 3350 17 GM Packet PO SCH (09:23)
[2020-07-01] MEDS: Bicalutamide 50 MG TAB PO SCH (09:23)
[2020-07-01] MEDS: Enoxaparin Sodium 40 MG/0.4 ML SYRINGE SC SCH (09:23)
[2020-07-01] MEDS ORDERED: Sodium Chloride 0.9% 10 ML ONE (16:10)
--- NOTE | 2020-07-01 16:20 | PDOC.MOPN ---
Interval History: patient respirations elevated, HR elevated. - Vital Signs Vital Signs: Vital Signs (12 hours) Temp Pulse Resp BP Pulse Ox 07/01/20 11:54 99.9 F H 122 H 22 H 109/60 92 L 07/01/20 08:00 99.5 F 116 H 20 122/64 95 Weight Weight 140 lb - Physical Exam General: Mild distress Lungs: Other (crackles, wheeze) Cardiovascular: Regular rate (tachy) Abdomen: Normal bowel sounds Neurological: Other (BLE weakness) - Labs Result Diagrams: 06/30/20 04:53 07/01/20 06:33 Lab results: Laboratory Results - last 24 hr 07/01/20 16:06: POC Glucose 105 H 07/01/20 06:33: Sodium 137, Potassium 4.4, Chloride 103, Carbon Dioxide 19 L, Anion Gap 19, BUN 16, Creatinine 0.75, Estimated GFR (MDRD) Greater than 90, Glucose 80, Calcium 8.5, Total Bilirubin 0.7, AST 36 H, ALT 20, Alkaline Phosphatase 197 H, Serum Total Protein 6.4, Albumin 2.9 L, Globulin 3.5, Albumin/Globulin Ratio 0.8 L Status: lab reviewed by me A/P - Problem (1) Prostate cancer metastatic to bone Current Visit: No Code(s): C61 - MALIGNANT NEOPLASM OF PROSTATE; C79.51 - SECONDARY MALIGNANT NEOPLASM OF BONE Status: Acute (2) Thrombus of pulmonary vein Current Visit: No Code(s): I26.99 - OTHER PULMONARY EMBOLISM WITHOUT ACUTE COR PULMONALE Status: Acute (3) Bone metastasis Current Visit: No Code(s): C79.51 - SECONDARY MALIGNANT NEOPLASM OF BONE Status: Chronic - Plan Plan: Patient agreed to hospice, confirmed today. Await HBV to visit Patient had acute change this afternoon. Discussed code status, he agrees to D MAGALIS Gao at bedside.
[2020-07-01] MEDS ORDERED: Ipratropium Bromide 2.5 ml Neb ONE (16:23)
[2020-07-01] MEDS ORDERED: Ipratropium Bromide 2.5 ml Neb NEB PRN (16:23)
[2020-07-01] MEDS ORDERED: Furosemide 40 MG/4 ML VIAL SLOW IVP SCH (16:30)
[2020-07-01] MEDS: Scopolamine 1.5 mg/72 hour Patch TD SCH (18:33)
--- NOTE | 2020-07-01 19:23 | PDOC.HOSPP ---
- Subjective Encounter Date: 07/01/20 Encounter Time: 19:21 Subjective: Patient seen for follow-up regarding traumatic anemia. He had an episode of respiratory distress earlier today. - Objective Vital Signs & Weight: Vital Signs (12 hours) Temp Pulse Resp BP Pulse Ox 07/01/20 16:10 89 L 07/01/20 16:02 101.1 F H 131 H 32 H 124/67 93 L 07/01/20 11:54 99.9 F H 122 H 22 H 109/60 92 L 07/01/20 08:00 99.5 F 116 H 20 122/64 95 Weight Weight 140 lb I&O: 06/30/20 07/01/20 07/02/20 06:59 06:59 06:59 Output Total 800 1200 Balance -800 -1200 Result Diagrams: 06/30/20 04:53 07/01/20 06:33 Additional Labs: Accuchecks 07/01/20 16:06 POC Glucose 105 H I reviewed patient's labs and MAR Hospitalist ROS - Review of Systems Respiratory: reports: shortness of breath Cardiovascular: denies: chest pain, palpitations, orthopnea, paroxysmal noc. dyspnea, edema, light headedness Gastrointestinal: denies: nausea, vomiting, abdominal pain, diarrhea, constipation, melena, hematochezia - Medication Medications: Active Medications Generic Name Dose Route Start Last Admin Trade Name Freq PRN Reason Stop Dose Admin Hydrocodone Bitart/Acetaminophen 1 tab 06/30/20 00:54 06/30/20 22:03 Hydrocodone/Acetaminophen 5/325 Mg Tablet PO 1 tab Q4H PRN Administration Moderate Pain (4-6) Bicalutamide 50 mg 06/30/20 09:00 07/01/20 09:23 Bicalutamide 50 Mg Tab PO 50 mg DAILY JOYCE Administration Bisacodyl 10 mg 06/30/20 00:54 06/30/20 17:47 Bisacodyl 5 Mg Tab PO 10 mg DAILYPRN PRN Administration Constipation Enoxaparin Sodium 40 mg 06/30/20 09:00 07/01/20 09:23 Enoxaparin Sodium 40 Mg/0.4 Ml Syringe SC 40 mg 0900 JOYCE Administration Famotidine 20 mg 06/30/20 09:00 07/01/20 09:22 Famotidine 20 Mg Tab PO 20 mg BID JOYCE Administration Morphine Sulfate 2 mg 06/30/20 00:56 07/01/20 16:11 Morphine 2 Mg/Ml Vial SLOW IVP 2 mg Q4H PRN Administration Pain Polyethylene Glycol 17 gm 07/01/20 09:00 07/01/20 09:23 Polyethylene Glycol 3350 17 Gm Packet PO 17 gm DAILY JOYCE Administration Scopolamine 1.5 mg 07/01/20 18:00 07/01/20 18:33 Scopolamine 1.5 Mg/72 Hour Patch TD 1.5 mg Q3D JOYCE Administration Senna/Docusate Sodium 1 tab 06/30/20 21:00 07/01/20 09:22 Senokot S 8.6-50 Mg Tab PO 1 tab BID JOYCE Administration - Exam General Appearance: awake alert ENT: normocephalic atraumatic Neck: supple Heart: RRR Respiratory: CTAB Gastrointestinal: soft, non-tender Skin: no rashes Psychiatric: normal affect, normal behavior Hosp A/P - Plan -Assessment (1) Symptomatic anemia Code(s): D64.9 - ANEMIA, UNSPECIFIED Status: Acute (2) Prostate cancer metastatic to bone Code(s): C61 - MALIGNANT NEOPLASM OF PROSTATE; C79.51 - SECONDARY MALIGNANT NEOPLASM OF BONE Status: Acute (3) 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 - OTHER PULMONARY EMBOLISM WITHOUT ACUTE COR PULMONALE Status: Acute - Plan Status post 1 unit packed RBC transfusion. Appreciate oncology service input. Patient earlier wanted to be DNAR. He now reports that he has changed his mind. I discussed with patient's sister as well. Patient to be full code for now was decided regarding his CODE STATUS.
[2020-07-01] MEDS: HYDROcodone/Acetaminophen 5/325 mg Tablet PO PRN (20:52)
[2020-07-02] MEDS: Enoxaparin Sodium 40 MG/0.4 ML SYRINGE SC SCH (08:38)
[2020-07-02] MEDS: HYDROcodone/Acetaminophen 5/325 mg Tablet PO PRN ×2 (08:38→19:45)
[2020-07-02] MEDS: Famotidine 20 MG TAB PO SCH ×2 (08:39→19:46)
[2020-07-02] MEDS: Polyethylene Glycol 3350 17 GM Packet PO SCH (08:39)
[2020-07-02] MEDS: Bicalutamide 50 MG TAB PO SCH (08:41)
[2020-07-02] MEDS: Senokot S 8.6-50 MG TAB PO SCH ×2 (08:46→19:46)
[2020-07-02] MEDS ORDERED: Magnesium Citrate 300 ML BOT PO SCH (13:15)
--- NOTE | 2020-07-02 15:28 | PDOC.HOSPP ---
- Subjective Encounter Date: 07/02/20 Encounter Time: 07:30 Subjective: Patient seen for follow-up for symptomatic anemia. - Objective Vital Signs & Weight: Vital Signs (12 hours) Temp Pulse Resp BP Pulse Ox 07/02/20 11:55 98.5 F 102 H 22 H 97/57 L 92 L 07/02/20 08:00 98.6 F 111 H 22 H 118/64 92 L 07/02/20 04:40 98.2 F 113 H 20 97/58 L 97 Weight Weight 140 lb I&O: 07/01/20 07/02/20 07/03/20 06:59 06:59 06:59 Intake Total 200 Output Total 800 2600 Balance -800 -2400 Result Diagrams: 06/30/20 04:53 07/01/20 06:33 Additional Labs: Accuchecks 07/01/20 16:06 POC Glucose 105 H Hospitalist ROS - Review of Systems Cardiovascular: denies: chest pain, palpitations, orthopnea, paroxysmal noc. dyspnea, edema, light headedness Gastrointestinal: denies: nausea, vomiting, abdominal pain, diarrhea, constipation, melena, hematochezia - Medication Medications: Active Medications Generic Name Dose Route Start Last Admin Trade Name Freq PRN Reason Stop Dose Admin Hydrocodone Bitart/Acetaminophen 1 tab 06/30/20 00:54 07/02/20 08:38 Hydrocodone/Acetaminophen 5/325 Mg Tablet PO 1 tab Q4H PRN Administration Moderate Pain (4-6) Bicalutamide 50 mg 06/30/20 09:00 07/02/20 08:41 Bicalutamide 50 Mg Tab PO 50 mg DAILY JOYCE Administration Bisacodyl 10 mg 06/30/20 00:54 06/30/20 17:47 Bisacodyl 5 Mg Tab PO 10 mg DAILYPRN PRN Administration Constipation Enoxaparin Sodium 40 mg 06/30/20 09:00 07/02/20 08:38 Enoxaparin Sodium 40 Mg/0.4 Ml Syringe SC 40 mg 0900 JOYCE Administration Famotidine 20 mg 06/30/20 09:00 07/02/20 08:39 Famotidine 20 Mg Tab PO 20 mg BID JOYCE Administration Miscellaneous Medication 25 mg 07/02/20 14:45 07/02/20 15:04 Naloxegol Oxalate 12.5 Mg Tab PO 07/02/20 17:00 25 mg NOW JOYCE Administration Morphine Sulfate 2 mg 06/30/20 00:56 07/01/20 16:11 Morphine 2 Mg/Ml Vial SLOW IVP 2 mg Q4H PRN Administration Pain Polyethylene Glycol 17 gm 07/01/20 09:00 07/02/20 08:39 Polyethylene Glycol 3350 17 Gm Packet PO 17 gm DAILY JOYCE Administration Scopolamine 1.5 mg 07/01/20 18:00 07/01/20 18:33 Scopolamine 1.5 Mg/72 Hour Patch TD 1.5 mg Q3D JOYCE Administration Senna/Docusate Sodium 1 tab 06/30/20 21:00 07/02/20 08:46 Senokot S 8.6-50 Mg Tab PO 1 tab BID JOYCE Administration - Exam General Appearance: awake alert Eye: anicteric sclera ENT: normocephalic atraumatic Neck: supple Heart: RRR Respiratory: CTAB Gastrointestinal: soft, non-tender Skin: no rashes Psychiatric: normal affect, normal behavior Hosp A/P - Plan -Assessment (1) Symptomatic anemia Code(s): D64.9 - ANEMIA, UNSPECIFIED Status: Acute (2) Prostate cancer metastatic to bone Code(s): C61 - MALIGNANT NEOPLASM OF PROSTATE; C79.51 - SECONDARY MALIGNANT NEOPLASM OF BONE Status: Acute (3) 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 - OTHER PULMONARY EMBOLISM WITHOUT ACUTE COR PULMONALE Status: Acute - Plan Check labs, trend H&H. Transfuse as needed. Oncology following. Patient currently full code.
--- NOTE | 2020-07-02 15:29 | PDOC.MOPN ---
Interval History: patient dozing, responds to questions. Denies pain at this time. - Vital Signs Vital Signs: Vital Signs (12 hours) Temp Pulse Resp BP Pulse Ox 07/02/20 11:55 98.5 F 102 H 22 H 97/57 L 92 L 07/02/20 08:00 98.6 F 111 H 22 H 118/64 92 L 07/02/20 04:40 98.2 F 113 H 20 97/58 L 97 Weight Weight 140 lb - Physical Exam General: No acute distress Lungs: Clear to auscultation Cardiovascular: Regular rate Abdomen: Other Neurological: Normal speech - Labs Result Diagrams: 06/30/20 04:53 07/01/20 06:33 Lab results: Laboratory Results - last 24 hr 07/01/20 16:06: POC Glucose 105 H Status: lab reviewed by me A/P - Problem (1) Prostate cancer metastatic to bone Current Visit: No Code(s): C61 - MALIGNANT NEOPLASM OF PROSTATE; C79.51 - SECONDARY MALIGNANT NEOPLASM OF BONE Status: Acute (2) Thrombus of pulmonary vein Current Visit: No Code(s): I26.99 - OTHER PULMONARY EMBOLISM WITHOUT ACUTE COR PULMONALE Status: Acute (3) Bone metastasis Current Visit: No Code(s): C79.51 - SECONDARY MALIGNANT NEOPLASM OF BONE Status: Chronic - Plan Plan: Patient has metastatic prostate cancer, first seen by us in February 2020. He received a 3 month dose of Lupron at that time. He was prescribe Casodex but only took for a short time. He was uninsured and it took him until May to turn in paperwork for financial assistance. He continued to decline during this time with progressive BLE weakness and pain. Once financially approved, he was started on Xtandi oral treatment which was shipped to his home mid May. It is unclear if he every started taking the medication. He does admit to stopping his coumadin at some point. Based on his current PSA, it appears he was not taking Casodex nor Xtandi. He has BLE weakness and pain. Having constipation. While he has multiple treatment options available, He has minimal social support which has contributed to his decline. He has missed appointments, and stopped taking treatment. He is now essentially bed-ridden. We discussed hospice. He also agreed to DNAR but this has now been reversed. It's unclear to me how he can go back to his home without assistance. MARIANA has reached out to his daughter. If she can care for him, then would recommend further treatment. I asked him to have family bring his Xtandi to the hospital so he can restart taking this medication.
[2020-07-02 16:26] LABS: Hemoglobin 6.6 g/dL (14.0-18.0); Mean Corpuscular HGB CONC 30.7 g/dL (32.0-36.0); Mean Corpuscular Hemoglobin 26.7 pg (27.0-31.0); Mean Corpuscular Volume 87.1 fL (78.0-98.0); Mean Platelet Volume 9.6 fL (7.4-10.4); Platelet Count 120 thou/uL (130-400); RBC Distribution Width 16.5 % (11.5-14.5); Red Blood Cell (RBC) Count 2.46 mill/uL (4.70-6.10); White Blood Cell (WBC) Count 10.9 thou/uL (4.8-10.8)
[2020-07-02 16:41] LABS: ALT (SGPT) 23 U/L (8-55); AST (SGOT) 36 U/L (5-34); Albumin 2.8 g/dL (3.4-4.8); Alkaline Phosphatase 206 U/L (40-110); Anion Gap 16 mmol/L (10-20); BUN (Urea Nitrogen) 15 mg/dL (8.4-25.7); Bilirubin, Total 0.6 mg/dL (0.2-1.2); Calc. Creatinine Clearance 93 mL/min (70-130); Calcium 8.3 mg/dL (7.8-10.44); Carbon Dioxide 25 mmol/L (23-31); Chloride 100 mmol/L (98-107); Globulin 3.5 g/dL (2.4-3.5); Glucose 104 mg/dL (80-115); Potassium 4.4 mmol/L (3.5-5.1); Protein, Total 6.3 g/dL (5.8-8.1); Sodium 137 mmol/L (136-145)
[2020-07-02 17:23] LABS: Anisocytosis SLIGHT = 6-15 cells (100X) (0-5/hpf); Band 9 % (5-11); Eosinophils 2 % (0-10); Lymphocytes 23 % (21-51); MDiff Complete? YES; Metamyelocyte 7 % (0-0); Monocytes 9 % (0-10); Myelocyte 6 % (0-0); Neutrophil 44 % (42-75); Nucleated RBC 2 % (0); Ovalocytes SLIGHT = 2-5 cells (100X) (0-1/hpf); Platelet Morphology Comment Appears Decreased; Poikilocytosis SLIGHT = 6-15 cells (100X) (0-5/hpf); Polychromasia MODERATE = 3-4 cells (100X) (0-2/hpf); Schistocytes SLIGHT = 2-5 cells (100X) (0-1/hpf); Spherocytes SLIGHT = 1-5 cells (100X) (None Seen); Tear Drops SLIGHT = 2-5 cells (100X) (0-1/hpf)
[2020-07-03] MEDS: HYDROcodone/Acetaminophen 5/325 mg Tablet PO PRN ×3 (04:25→20:03)
[2020-07-03 06:50] LABS: Hemoglobin 5.8 g/dL (14.0-18.0); Mean Corpuscular HGB CONC 30.2 g/dL (32.0-36.0); Mean Corpuscular Hemoglobin 25.9 pg (27.0-31.0); Mean Corpuscular Volume 85.6 fL (78.0-98.0); Mean Platelet Volume 10.3 fL (7.4-10.4); Platelet Count 109 thou/uL (130-400); RBC Distribution Width 16.5 % (11.5-14.5); Red Blood Cell (RBC) Count 2.23 mill/uL (4.70-6.10); White Blood Cell (WBC) Count 9.2 thou/uL (4.8-10.8)
[2020-07-03 07:04] LABS: ALT (SGPT) 22 U/L (8-55); AST (SGOT) 31 U/L (5-34); Albumin 2.6 g/dL (3.4-4.8); Alkaline Phosphatase 193 U/L (40-110); Anion Gap 14 mmol/L (10-20); BUN (Urea Nitrogen) 12 mg/dL (8.4-25.7); Bilirubin, Total 0.5 mg/dL (0.2-1.2); Calc. Creatinine Clearance 94 mL/min (70-130); Calcium 8.3 mg/dL (7.8-10.44); Carbon Dioxide 26 mmol/L (23-31); Chloride 101 mmol/L (98-107); Globulin 3.4 g/dL (2.4-3.5); Glucose 91 mg/dL (80-115); Potassium 4.4 mmol/L (3.5-5.1); Sodium 137 mmol/L (136-145)
[2020-07-03 07:21] LABS: Band 18 % (5-11); Eosinophils 1 % (0-10); Lymphocytes 15 % (21-51); MDiff Complete? YES; Metamyelocyte 8 % (0-0); Monocytes 8 % (0-10); Myelocyte 10 % (0-0); Neutrophil 39 % (42-75); Nucleated RBC 3 % (0); Platelet Morphology Comment Appears Decreased; Polychromasia SLIGHT = 2-3 cells (100X) (0-2/hpf); Reactive Lymphocytes 1 % (0-10); Schistocytes SLIGHT = 2-5 cells (100X) (0-1/hpf); Tear Drops MODERATE= 6-15 cells (100X) (0-1/hpf)
[2020-07-03] MEDS: Senokot S 8.6-50 MG TAB PO SCH ×2 (09:30→20:03)
[2020-07-03] MEDS: Enoxaparin Sodium 40 MG/0.4 ML SYRINGE SC SCH (09:30)
[2020-07-03] MEDS: Polyethylene Glycol 3350 17 GM Packet PO SCH (09:30)
[2020-07-03] MEDS: Famotidine 20 MG TAB PO SCH ×2 (09:30→20:03)
[2020-07-03] MEDS: Bicalutamide 50 MG TAB PO SCH (09:32)
[2020-07-03 12:04] LABS: Hemoglobin 7.8 g/dL (14.0-18.0)
--- NOTE | 2020-07-03 13:57 | PDOC.HOSPP ---
- Subjective Encounter Date: 07/03/20 Encounter Time: 13:55 Subjective: Patient seen for follow-up regarding symptomatic anemia. He reports generalized weakness. He denies nausea or vomiting. He denies any black stools or blood in stool. - Objective Vital Signs & Weight: Vital Signs (12 hours) Temp Pulse Resp BP BP Pulse Ox 07/03/20 11:53 98.5 F 24 H 103/60 94 L 07/03/20 09:00 98.1 F 20 103/56 L 94 L 07/03/20 08:45 98.1 F 20 100/69 07/03/20 08:00 98.3 F 101 H 20 102/56 L 98 07/03/20 04:25 98.4 F 101 H 24 H 118/64 92 L Weight Weight 140 lb Most Recent Monitor Data Heart Rate from ECG 103 I&O: 07/02/20 07/03/20 07/04/20 06:59 06:59 06:59 Intake Total 200 540 350 Output Total 2600 700 Balance -2400 -160 350 Result Diagrams: 07/03/20 11:49 07/03/20 06:16 Additional Labs: I reviewed patient's labs and [facility] Hospitalist ROS - Review of Systems Constitutional: reports: weakness Gastrointestinal: denies: nausea, vomiting, abdominal pain, diarrhea, constipation, melena, hematochezia Genitourinary: denies: dysuria, frequency, incontinence, hematuria, retention - Medication Medications: Active Medications Generic Name Dose Route Start Last Admin Trade Name Freq PRN Reason Stop Dose Admin Hydrocodone Bitart/Acetaminophen 1 tab 06/30/20 00:54 07/03/20 09:32 Hydrocodone/Acetaminophen 5/325 Mg Tablet PO 1 tab Q4H PRN Administration Moderate Pain (4-6) Bicalutamide 50 mg 06/30/20 09:00 07/03/20 09:32 Bicalutamide 50 Mg Tab PO 50 mg DAILY JOYCE Administration Bisacodyl 10 mg 06/30/20 00:54 06/30/20 17:47 Bisacodyl 5 Mg Tab PO 10 mg DAILYPRN PRN Administration Constipation Enoxaparin Sodium 40 mg 06/30/20 09:00 07/03/20 09:30 Enoxaparin Sodium 40 Mg/0.4 Ml Syringe SC 40 mg 09 JOYCE Administration Famotidine 20 mg 06/30/20 09:00 07/03/20 09:30 Famotidine 20 Mg Tab PO 20 mg BID JOYCE Administration Morphine Sulfate 2 mg 06/30/20 00:56 07/01/20 16:11 Morphine 2 Mg/Ml Vial SLOW IVP 2 mg Q4H PRN Administration Pain Polyethylene Glycol 17 gm 07/01/20 09:00 07/03/20 09:30 Polyethylene Glycol 3350 17 Gm Packet PO 17 gm DAILY JOYCE Administration Scopolamine 1.5 mg 07/01/20 18:00 07/01/20 18:33 Scopolamine 1.5 Mg/72 Hour Patch TD 1.5 mg Q3D JOYCE Administration Senna/Docusate Sodium 1 tab 06/30/20 21:00 07/03/20 09:30 Senokot S 8.6-50 Mg Tab PO 1 tab BID JOYCE Administration - Exam General Appearance: awake alert ENT: moist mucosa Neck: supple Heart: RRR Respiratory: CTAB Skin: no rashes Psychiatric: normal affect Hosp A/P - Plan -Assessment (1) Symptomatic anemia Code(s): D64.9 - ANEMIA, UNSPECIFIED Status: Acute (2) Prostate cancer metastatic to bone Code(s): C61 - MALIGNANT NEOPLASM OF PROSTATE; C79.51 - SECONDARY MALIGNANT NEOPLASM OF BONE Status: Acute (3) 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 - OTHER PULMONARY EMBOLISM WITHOUT ACUTE COR PULMONALE Status: Acute - Plan Transfuse 1 unit packed RBC today, recheck hemoglobin. Appreciate oncology service input. Patient currently full code.
[2020-07-04 07:38] LABS: Hemoglobin 7.5 g/dL (14.0-18.0); Mean Corpuscular HGB CONC 30.9 g/dL (32.0-36.0); Mean Corpuscular Hemoglobin 26.8 pg (27.0-31.0); Mean Corpuscular Volume 86.5 fL (78.0-98.0); Mean Platelet Volume 10.5 fL (7.4-10.4); Platelet Count 114 thou/uL (130-400); RBC Distribution Width 15.9 % (11.5-14.5); Red Blood Cell (RBC) Count 2.82 mill/uL (4.70-6.10); White Blood Cell (WBC) Count 11.2 thou/uL (4.8-10.8)
[2020-07-04 07:46] LABS: ALT (SGPT) 24 U/L (8-55); AST (SGOT) 29 U/L (5-34); Albumin 2.9 g/dL (3.4-4.8); Alkaline Phosphatase 192 U/L (40-110); Anion Gap 16 mmol/L (10-20); BUN (Urea Nitrogen) 12 mg/dL (8.4-25.7); Bilirubin, Total 0.4 mg/dL (0.2-1.2); Calc. Creatinine Clearance 96 mL/min (70-130); Calcium 8.8 mg/dL (7.8-10.44); Carbon Dioxide 26 mmol/L (23-31); Chloride 98 mmol/L (98-107); Globulin 3.6 g/dL (2.4-3.5); Glucose 84 mg/dL (80-115); Potassium 4.4 mmol/L (3.5-5.1); Protein, Total 6.5 g/dL (5.8-8.1); Sodium 136 mmol/L (136-145)
[2020-07-04 08:47] LABS: Band 18 % (5-11); Hypochromia SLIGHT = 6-15 cells (100X) (0-5/hpf); Lymphocytes 18 % (21-51); MDiff Complete? YES; Metamyelocyte 7 % (0-0); Monocytes 10 % (0-10); Myelocyte 7 % (0-0); Neutrophil 39 % (42-75); Nucleated RBC 1 % (0); Platelet Morphology Comment Appears Decreased; Polychromasia SLIGHT = 2-3 cells (100X) (0-2/hpf); Tear Drops SLIGHT = 2-5 cells (100X) (0-1/hpf)
[2020-07-04] MEDS ORDERED: Mineral Oil ENEMA PR SCH (09:00)
[2020-07-04] MEDS: Enoxaparin Sodium 40 MG/0.4 ML SYRINGE SC SCH (09:35)
[2020-07-04] MEDS: Polyethylene Glycol 3350 17 GM Packet PO SCH (09:35)
[2020-07-04] MEDS: Famotidine 20 MG TAB PO SCH ×2 (09:35→20:30)
[2020-07-04] MEDS: Senokot S 8.6-50 MG TAB PO SCH ×2 (09:35→20:30)
[2020-07-04] MEDS: Bicalutamide 50 MG TAB PO SCH (09:36)
[2020-07-04] MEDS: Bisacodyl 5 MG TAB PO PRN (12:16)
[2020-07-04] MEDS: HYDROcodone/Acetaminophen 5/325 mg Tablet PO PRN ×2 (12:16→20:42)
[2020-07-04] MEDS ORDERED: Milk Of Magnesia 30 ML UDCUP PO SCH (13:30)
--- NOTE | 2020-07-04 16:52 | RAD ---
KUB AND UPRIGHT: 07/04/20 HISTORY: Abdominal pain. There is gaseous distention of the abdomen without evidence of obstruction. No free air. Renal outlin es are obscured by gas and stool. Arthritic changes of the spine are present. Sclerotic changes of th e bones would suggest metastatic disease. Patient does have prostate cancer. IMPRESSION: 1. Gaseous distention of the abdomen without obstruction. 2. Sclerotic bone changes consistent with osseous metastases. 3. Some parenchymal changes are seen in the lung bases. Changes are similar to a previous chest x-ray of 06/30/20. POS: LORA
[2020-07-04] MEDS: Scopolamine 1.5 mg/72 hour Patch TD SCH (17:36)
--- NOTE | 2020-07-04 18:16 | PDOC.HOSPP ---
- Subjective Encounter Date: 07/04/20 Encounter Time: 10:30 Subjective: Patient seen for follow-up regarding symptomatic anemia. He reports constipation. - Objective Vital Signs & Weight: Vital Signs (12 hours) Temp Pulse Resp BP Pulse Ox 07/04/20 15:41 98.7 F 97 28 H 106/65 93 L 07/04/20 11:45 98.8 F 101 H 28 H 112/60 94 L 07/04/20 07:33 98.4 F 94 32 H 134/67 94 L Weight Weight 140 lb Most Recent Monitor Data Heart Rate from ECG 103 I&O: 07/03/20 07/04/20 07/05/20 06:59 06:59 06:59 Intake Total 540 710 Output Total 700 650 250 Balance -160 60 -250 Result Diagrams: 07/04/20 07:09 07/04/20 07:09 Additional Labs: Labs and MAR reviewed by [place] Hospitalist ROS - Review of Systems Constitutional: reports: weakness Cardiovascular: denies: chest pain, palpitations, orthopnea, paroxysmal noc. dyspnea, edema, light headedness Gastrointestinal: reports: constipation. denies: nausea, vomiting, abdominal pain, diarrhea, melena, hematochezia - Medication Medications: Active Medications Generic Name Dose Route Start Last Admin Trade Name Freq PRN Reason Stop Dose Admin Hydrocodone Bitart/Acetaminophen 1 tab 06/30/20 00:54 07/04/20 12:16 Hydrocodone/Acetaminophen 5/325 Mg Tablet PO 1 tab Q4H PRN Administration Moderate Pain (4-6) Bicalutamide 50 mg 06/30/20 09:00 07/04/20 09:36 Bicalutamide 50 Mg Tab PO 50 mg DAILY JOYCE Administration Bisacodyl 10 mg 06/30/20 00:54 07/04/20 12:16 Bisacodyl 5 Mg Tab PO 10 mg DAILYPRN PRN Administration Constipation Enoxaparin Sodium 40 mg 06/30/20 09:00 07/04/20 09:35 Enoxaparin Sodium 40 Mg/0.4 Ml Syringe SC 40 mg 0900 JOYCE Administration Famotidine 20 mg 06/30/20 09:00 07/04/20 09:35 Famotidine 20 Mg Tab PO 20 mg BID JOYCE Administration Morphine Sulfate 2 mg 06/30/20 00:56 01/06/21 16:11 Morphine 2 Mg/Ml Vial SLOW IVP 2 mg Q4H PRN Administration Pain Polyethylene Glycol 17 gm 07/01/20 09:00 07/04/20 09:35 Polyethylene Glycol 3350 17 Gm Packet PO 17 gm DAILY JOYCE Administration Scopolamine 1.5 mg 07/01/20 18:00 07/04/20 17:36 Scopolamine 1.5 Mg/72 Hour Patch TD 1.5 mg Q3D JOYCE Administration Senna/Docusate Sodium 1 tab 06/30/20 21:00 07/04/20 09:35 Senokot S 8.6-50 Mg Tab PO 1 tab BID JOYCE Administration - Exam General Appearance: awake alert ENT: moist mucosa Neck: supple Heart: no rubs Respiratory: CTAB Gastrointestinal: soft, non-tender Skin: no rashes Psychiatric: normal affect Hosp A/P - Plan -Assessment (1) Symptomatic anemia Code(s): D64.9 - ANEMIA, UNSPECIFIED Status: Acute (2) Prostate cancer metastatic to bone Code(s): C61 - MALIGNANT NEOPLASM OF PROSTATE; C79.51 - SECONDARY MALIGNANT NEOPLASM OF BONE Status: Acute (3) 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 - OTHER PULMONARY EMBOLISM WITHOUT ACUTE COR PULMONALE Status: Acute - Plan Globin stable, status post packed RBC transfusion. Trial laxatives. Discharge planning in progress. After discussion between patient, patient's daughter and patient's sister, patient wishes to be DNAR.
[2020-07-05] MEDS: HYDROcodone/Acetaminophen 5/325 mg Tablet PO PRN ×2 (06:12→20:39)
[2020-07-05 07:09] LABS: ALT (SGPT) 22 U/L (8-55); AST (SGOT) 26 U/L (5-34); Alkaline Phosphatase 182 U/L (40-110); Anion Gap 19 mmol/L (10-20); BUN (Urea Nitrogen) 10 mg/dL (8.4-25.7); Bilirubin, Total 0.4 mg/dL (0.2-1.2); Calc. Creatinine Clearance 96 mL/min (70-130); Calcium 8.8 mg/dL (7.8-10.44); Carbon Dioxide 23 mmol/L (23-31); Chloride 100 mmol/L (98-107); Globulin 3.6 g/dL (2.4-3.5); Glucose 84 mg/dL (80-115); Potassium 4.5 mmol/L (3.5-5.1); Protein, Total 6.6 g/dL (5.8-8.1); Sodium 137 mmol/L (136-145)
[2020-07-05 09:19] LABS: Hemoglobin 8.3 g/dL (14.0-18.0); Mean Corpuscular HGB CONC 31.5 g/dL (32.0-36.0); Mean Corpuscular Hemoglobin 27.9 pg (27.0-31.0); Mean Corpuscular Volume 88.4 fL (78.0-98.0); Mean Platelet Volume 10.5 fL (7.4-10.4); Platelet Count 108 thou/uL (130-400); Red Blood Cell (RBC) Count 2.98 mill/uL (4.70-6.10); White Blood Cell (WBC) Count 12.1 thou/uL (4.8-10.8)
[2020-07-05] MEDS: Bicalutamide 50 MG TAB PO SCH (09:27)
[2020-07-05] MEDS: Senokot S 8.6-50 MG TAB PO SCH ×2 (09:27→20:39)
[2020-07-05] MEDS: Famotidine 20 MG TAB PO SCH ×2 (09:27→20:39)
[2020-07-05] MEDS: Enoxaparin Sodium 40 MG/0.4 ML SYRINGE SC SCH (09:27)
[2020-07-05] MEDS: Polyethylene Glycol 3350 17 GM Packet PO SCH (09:27)
[2020-07-05 09:53] LABS: Band 21 % (5-11); Hypochromia SLIGHT = 6-15 cells (100X) (0-5/hpf); Large Platelets SLIGHT; Lymphocytes 10 % (21-51); MDiff Complete? YES; Metamyelocyte 5 % (0-0); Monocytes 8 % (0-10); Myelocyte 6 % (0-0); Neutrophil 50 % (42-75); Platelet Morphology Comment Appears Decreased; Polychromasia SLIGHT = 2-3 cells (100X) (0-2/hpf); Schistocytes SLIGHT = 2-5 cells (100X) (0-1/hpf); Tear Drops SLIGHT = 2-5 cells (100X) (0-1/hpf)
--- NOTE | 2020-07-05 16:25 | PDOC.HOSPP ---
- Subjective Encounter Date: 07/05/20 Encounter Time: 11:00 Subjective: Patient seen for follow-up regarding anemia. He reports generalized weakness. - Objective Vital Signs & Weight: Vital Signs (12 hours) Temp Pulse Resp BP Pulse Ox 07/05/20 08:00 98.6 F 104 H 20 139/65 93 L Weight Weight 140 lb Most Recent Monitor Data Heart Rate from ECG 103 I&O: 07/04/20 07/05/20 07/06/20 06:59 06:59 06:59 Intake Total 710 500 Output Total 650 900 Balance 60 -400 Result Diagrams: 07/05/20 06:29 07/05/20 06:29 Additional Labs: I reviewed patient's labs and [facility] Hospitalist ROS - Review of Systems Constitutional: reports: weakness Cardiovascular: reports: other. denies: chest pain, palpitations, orthopnea, paroxysmal noc. dyspnea, edema, light headedness Gastrointestinal: denies: nausea, vomiting, abdominal pain, diarrhea, constipation, melena - Medication Medications: Active Medications Generic Name Dose Route Start Last Admin Trade Name Freq PRN Reason Stop Dose Admin Hydrocodone Bitart/Acetaminophen 1 tab 06/30/20 00:54 07/05/20 06:12 Hydrocodone/Acetaminophen 5/325 Mg Tablet PO 1 tab Q4H PRN Administration Moderate Pain (4-6) Bicalutamide 50 mg 06/30/20 09:00 07/05/20 09:27 Bicalutamide 50 Mg Tab PO 50 mg DAILY JOYCE Administration Bisacodyl 10 mg 06/30/20 00:54 07/04/20 12:16 Bisacodyl 5 Mg Tab PO 10 mg DAILYPRN PRN Administration Constipation Enoxaparin Sodium 40 mg 06/30/20 09:00 07/05/20 09:27 Enoxaparin Sodium 40 Mg/0.4 Ml Syringe SC 40 mg 0900 JOYCE Administration Famotidine 20 mg 06/30/20 09:00 07/05/20 09:27 Famotidine 20 Mg Tab PO 20 mg BID JOYCE Administration Morphine Sulfate 2 mg 06/30/20 00:56 07/01/20 16:11 Morphine 2 Mg/Ml Vial SLOW IVP 2 mg Q4H PRN Administration Pain Polyethylene Glycol 17 gm 07/01/20 09:00 07/05/20 09:27 Polyethylene Glycol 3350 17 Gm Packet PO 17 gm DAILY JOYCE Administration Scopolamine 1.5 mg 07/01/20 18:00 07/04/20 17:36 Scopolamine 1.5 Mg/72 Hour Patch TD 1.5 mg Q3D JOYCE Administration Senna/Docusate Sodium 1 tab 06/30/20 21:00 07/05/20 09:27 Senokot S 8.6-50 Mg Tab PO 1 tab BID JOYCE Administration - Exam General Appearance: awake alert ENT: moist mucosa Neck: supple Respiratory: normal chest expansion Gastrointestinal: normal bowel sounds Psychiatric: normal affect, normal behavior Hosp A/P - Plan -Assessment (1) Symptomatic anemia Code(s): D64.9 - ANEMIA, UNSPECIFIED Status: Acute (2) Prostate cancer metastatic to bone Code(s): C61 - MALIGNANT NEOPLASM OF PROSTATE; C79.51 - SECONDARY MALIGNANT NEOPLASM OF BONE Status: Acute (3) 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 - OTHER PULMONARY EMBOLISM WITHOUT ACUTE COR PULMONALE Status: Acute - Plan Hemoglobin improved to 8.3. Patient had a bowel movement yesterday. Patient is currently DNR.
[2020-07-06] MEDS: HYDROcodone/Acetaminophen 5/325 mg Tablet PO PRN ×2 (09:46→20:10)
[2020-07-06] MEDS: Enoxaparin Sodium 40 MG/0.4 ML SYRINGE SC SCH (09:50)
[2020-07-06] MEDS: Bicalutamide 50 MG TAB PO SCH (09:50)
[2020-07-06] MEDS: Senokot S 8.6-50 MG TAB PO SCH ×2 (09:50→20:11)
[2020-07-06] MEDS: Famotidine 20 MG TAB PO SCH ×2 (09:50→20:11)
[2020-07-06] MEDS: Polyethylene Glycol 3350 17 GM Packet PO SCH (09:50)
--- NOTE | 2020-07-06 15:32 | PDOC.HOSPP ---
- Subjective Encounter Date: 07/06/20 Encounter Time: 10:00 Subjective: Patient seen for follow-up regarding anemia. He denies chest pain or shortness of breath. He denies nausea or vomiting. - Objective Vital Signs & Weight: Vital Signs (12 hours) Temp Pulse Resp BP Pulse Ox 07/06/20 11:50 98.7 F 96 22 H 111/67 94 L 07/06/20 08:00 98.6 F 102 H 22 H 97/61 99 Weight Weight 140 lb Most Recent Monitor Data Heart Rate from ECG 103 I&O: 07/05/20 07/06/20 07/07/20 06:59 06:59 06:59 Intake Total 500 800 Output Total 900 375 Balance -400 425 Result Diagrams: 07/05/20 06:29 07/05/20 06:29 Additional Labs: Labs and MAR reviewed by [facility] Hospitalist ROS - Review of Systems Cardiovascular: denies: chest pain, palpitations, orthopnea, paroxysmal noc. dyspnea, edema, light headedness Gastrointestinal: denies: nausea, vomiting, abdominal pain, diarrhea, constipation, melena, hematochezia - Medication Medications: Active Medications Generic Name Dose Route Start Last Admin Trade Name Freq PRN Reason Stop Dose Admin Hydrocodone Bitart/Acetaminophen 1 tab 06/30/20 00:54 07/06/20 09:46 Hydrocodone/Acetaminophen 5/325 Mg Tablet PO 1 tab Q4H PRN Administration Moderate Pain (4-6) Bicalutamide 50 mg 06/30/20 09:00 07/06/20 09:50 Bicalutamide 50 Mg Tab PO 50 mg DAILY JOYCE Administration Bisacodyl 10 mg 06/30/20 00:54 07/04/20 12:16 Bisacodyl 5 Mg Tab PO 10 mg DAILYPRN PRN Administration Constipation Enoxaparin Sodium 40 mg 06/30/20 09:00 07/06/20 09:50 Enoxaparin Sodium 40 Mg/0.4 Ml Syringe SC 40 mg 09 JOYCE Administration Famotidine 20 mg 06/30/20 09:00 07/06/20 09:50 Famotidine 20 Mg Tab PO 20 mg BID JOYCE Administration Morphine Sulfate 2 mg 06/30/20 00:56 07/01/20 16:11 Morphine 2 Mg/Ml Vial SLOW IVP 2 mg Q4H PRN Administration Pain Polyethylene Glycol 17 gm 07/01/20 09:00 07/06/20 09:50 Polyethylene Glycol 3350 17 Gm Packet PO 17 gm DAILY JOYCE Administration Scopolamine 1.5 mg 07/01/20 18:00 07/04/20 17:36 Scopolamine 1.5 Mg/72 Hour Patch TD 1.5 mg Q3D JOYCE Administration Senna/Docusate Sodium 1 tab 06/30/20 21:00 07/06/20 09:50 Senokot S 8.6-50 Mg Tab PO 1 tab BID JOYCE Administration - Exam General Appearance: awake alert ENT: no oropharyngeal lesions Neck: supple Heart: RRR Respiratory: CTAB Gastrointestinal: soft Skin: no rashes Psychiatric: normal affect Hosp A/P - Plan -Assessment (1) Symptomatic anemia Code(s): D64.9 - ANEMIA, UNSPECIFIED Status: Acute (2) Prostate cancer metastatic to bone Code(s): C61 - MALIGNANT NEOPLASM OF PROSTATE; C79.51 - SECONDARY MALIGNANT NEOPLASM OF BONE Status: Acute (3) 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 - OTHER PULMONARY EMBOLISM WITHOUT ACUTE COR PULMONALE Status: Acute - Plan Check a.m. labs. Constipation resolved. Patient is currently DNR. Most likely for hospice.
[2020-07-07] MEDS: Polyethylene Glycol 3350 17 GM Packet PO SCH (08:38)
[2020-07-07] MEDS: Senokot S 8.6-50 MG TAB PO SCH ×2 (08:38→20:12)
[2020-07-07] MEDS: Famotidine 20 MG TAB PO SCH ×2 (08:38→20:12)
[2020-07-07] MEDS: Enoxaparin Sodium 40 MG/0.4 ML SYRINGE SC SCH (08:39)
[2020-07-07] MEDS: Bicalutamide 50 MG TAB PO SCH (08:39)
--- NOTE | 2020-07-07 09:02 | PDOC.HOSPP ---
- Subjective Encounter Date: 07/07/20 Encounter Time: 10:45 Subjective: Patient without complaints, just a bit weak. - Objective Vital Signs & Weight: Vital Signs (12 hours) Temp Pulse Resp BP Pulse Ox 07/07/20 07:57 98.9 F 103 H 20 109/59 L 95 Weight Weight 140 lb Most Recent Monitor Data Heart Rate from ECG 103 I&O: 07/06/20 07/07/20 07/08/20 06:59 06:59 06:59 Intake Total 800 1040 Output Total 375 8548 Balance 425 -1614 Result Diagrams: 07/05/20 06:29 07/05/20 06:29 Hospitalist ROS - Review of Systems Constitutional: denies: fever, chills Respiratory: denies: cough, shortness of breath Cardiovascular: denies: chest pain, palpitations Gastrointestinal: denies: nausea, vomiting, abdominal pain - Medication Medications: Active Medications Generic Name Dose Route Start Last Admin Trade Name Freq PRN Reason Stop Dose Admin Hydrocodone Bitart/Acetaminophen 1 tab 06/30/20 00:54 07/06/20 20:10 Hydrocodone/Acetaminophen 5/325 Mg Tablet PO 1 tab Q4H PRN Administration Moderate Pain (4-6) Bicalutamide 50 mg 06/30/20 09:00 07/07/20 08:39 Bicalutamide 50 Mg Tab PO 50 mg DAILY JOYCE Administration Bisacodyl 10 mg 06/30/20 00:54 07/04/20 12:16 Bisacodyl 5 Mg Tab PO 10 mg DAILYPRN PRN Administration Constipation Enoxaparin Sodium 40 mg 06/30/20 09:00 07/07/20 08:39 Enoxaparin Sodium 40 Mg/0.4 Ml Syringe SC 40 mg 0900 JOYCE Administration Famotidine 20 mg 06/30/20 09:00 07/07/20 08:38 Famotidine 20 Mg Tab PO 20 mg BID JOYCE Administration Morphine Sulfate 2 mg 06/30/20 00:56 07/01/20 16:11 Morphine 2 Mg/Ml Vial SLOW IVP 2 mg Q4H PRN Administration Pain Polyethylene Glycol 17 gm 07/01/20 09:00 07/07/20 08:38 Polyethylene Glycol 3350 17 Gm Packet PO 17 gm DAILY JOYCE Administration Scopolamine 1.5 mg 07/01/20 18:00 07/04/20 17:36 Scopolamine 1.5 Mg/72 Hour Patch TD 1.5 mg Q3D JOYCE Administration Senna/Docusate Sodium 1 tab 06/30/20 21:00 07/07/20 08:38 Senokot S 8.6-50 Mg Tab PO 1 tab BID JOYCE Administration - Exam General Appearance: NAD, awake alert ENT: moist mucosa Heart: RRR, no murmur, no gallops, no rubs Respiratory: CTAB, no wheezes, no rales, no ronchi Gastrointestinal: soft, non-tender, non-distended, normal bowel sounds Psychiatric: normal affect, normal behavior Hosp A/P - Plan (1) Symptomatic anemia Code(s): D64.9 - ANEMIA, UNSPECIFIED Status: Acute (2) Prostate cancer metastatic to bone Code(s): C61 - MALIGNANT NEOPLASM OF PROSTATE; C79.51 - SECONDARY MALIGNANT NEOPLASM OF BONE Status: Acute (3) 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 - OTHER PULMONARY EMBOLISM WITHOUT ACUTE COR PULMONALE Status: Acute - Plan Constipation resolved. Patient changed his mind and refused DNAR. long term being set up, but not sure if he is still wanting hospice.
[2020-07-07] MEDS: HYDROcodone/Acetaminophen 5/325 mg Tablet PO PRN ×2 (15:25→20:12)
--- NOTE | 2020-07-07 15:36 | PDOC.MOPN ---
Interval History: patient states "doing alright". Pain controlled. - Vital Signs Vital Signs: Vital Signs (12 hours) Temp Pulse Pulse Resp BP BP Pulse Ox 07/07/20 12:08 98.7 F 97 20 108/60 96 07/07/20 10:58 100 108/60 07/07/20 07:57 98.9 F 103 H 20 109/59 L 95 Pulse Ox 07/07/20 12:08 07/07/20 10:58 96 07/07/20 07:57 Weight Weight 140 lb Most Recent Monitor Data Heart Rate from ECG 103 - Physical Exam General: Alert HEENT: Atraumatic Lungs: Clear to auscultation Cardiovascular: Regular rate Neurological: Other - Labs Result Diagrams: 07/05/20 06:29 07/05/20 06:29 Status: lab reviewed by me A/P - Problem (1) Prostate cancer metastatic to bone Current Visit: No Code(s): C61 - MALIGNANT NEOPLASM OF PROSTATE; C79.51 - SECONDARY MALIGNANT NEOPLASM OF BONE Status: Acute (2) Thrombus of pulmonary vein Current Visit: No Code(s): I26.99 - OTHER PULMONARY EMBOLISM WITHOUT ACUTE COR PULMONALE Status: Acute (3) Bone metastasis Current Visit: No Code(s): C79.51 - SECONDARY MALIGNANT NEOPLASM OF BONE Sta tus: Chronic - Plan Plan: Patient's spouse, Sarah Thomason, at bedside and updated Plan to get patient to [facility]. He will follow-up in clinic as outpatient to discuss further treatment.
[2020-07-07] MEDS: Scopolamine 1.5 mg/72 hour Patch TD SCH (17:59)
[2020-07-08] MEDS: HYDROcodone/Acetaminophen 5/325 mg Tablet PO PRN (03:10)
[2020-07-08] MEDS: Enoxaparin Sodium 40 MG/0.4 ML SYRINGE SC SCH (10:03)
[2020-07-08] MEDS: Famotidine 20 MG TAB PO SCH (10:03)
[2020-07-08] MEDS: Polyethylene Glycol 3350 17 GM Packet PO SCH (10:03)
[2020-07-08] MEDS: Bicalutamide 50 MG TAB PO SCH (10:03)
[2020-07-08] MEDS: Senokot S 8.6-50 MG TAB PO SCH (10:03)
--- NOTE | 2020-07-08 11:07 | PDOC.HOSPP ---
- Subjective Encounter Date: 07/08/20 Encounter Time: 07:00 Subjective: Patient seen and examined bedside today, patient is complaining of constipation, he has no bowel movement for last 4 days, otherwise he has no new complaint, his pain is controlled, - Objective Vital Signs & Weight: Vital Signs (12 hours) Temp Pulse Resp BP Pulse Ox 07/08/20 08:00 98.9 F 101 H 18 131/79 96 07/08/20 04:00 98.2 F 93 20 107/60 93 L 07/07/20 23:42 98.1 F 91 16 108/63 93 L Weight Weight 140 lb Most Recent Monitor Data Heart Rate from ECG 103 I&O: 07/07/20 07/08/20 07/09/20 06:59 06:59 06:59 Intake Total 1040 240 Output Total 2753 1850 Balance -7223 -2260 Result Diagrams: 07/05/20 06:29 07/05/20 06:29 Hospitalist ROS - Review of Systems Constitutional: denies: fever, chills, sweats, weakness, malaise, other Eyes: denies: pain, vision change, conjunctivae inflammation, eyelid inflammation, redness, other ENT: denies: ear pain, ear discharge, nose pain, nose discharge, nose congestion, mouth pain, mouth swelling, throat pain, throat swelling, other Respiratory: denies: cough, dry, shortness of breath, hemoptysis, SOB with excertion, pleuritic pain, sputum, wheezing, other Cardiovascular: denies: chest pain, palpitations, orthopnea, paroxysmal noc. dyspnea, edema, light headedness, other Gastrointestinal: reports: constipation. denies: nausea, vomiting, abdominal pain, diarrhea, melena, hematochezia, other Genitourinary: denies: dysuria, frequency, incontinence, hematuria, retention, other Musculoskeletal: denies: neck pain, shoulder pain, arm pain, back pain, hand pain, leg pain, foot pain, other Skin: denies: rash, lesions, bhavik, bruising, other - Medication Medications: Active Medications Generic Name Dose Route Start Last Admin Trade Name Freq PRN Reason Stop Dose Admin Hydrocodone Bitart/Acetaminophen 1 tab 06/30/20 00:54 07/08/20 03:10 Hydrocodone/Acetaminophen 5/325 Mg Tablet PO 1 tab Q4H PRN Administration Moderate Pain (4-6) Bicalutamide 50 mg 06/30/20 09:00 07/08/20 10:03 Bicalutamide 50 Mg Tab PO 50 mg DAILY JOYCE Administration Bisacodyl 10 mg 06/30/20 00:54 07/04/20 12:16 Bisacodyl 5 Mg Tab PO 10 mg DAILYPRN PRN Administration Constipation Enoxaparin Sodium 40 mg 06/30/20 09:00 07/08/20 10:03 Enoxaparin Sodium 40 Mg/0.4 Ml Syringe SC 40 mg 0900 JOYCE Administration Famotidine 20 mg 06/30/20 09:00 07/08/20 10:03 Famotidine 20 Mg Tab PO 20 mg BID JOYCE Administration Morphine Sulfate 2 mg 06/30/20 00:56 07/01/20 16:11 Morphine 2 Mg/Ml Vial SLOW IVP 2 mg Q4H PRN Administration Pain Polyethylene Glycol 17 gm 07/01/20 09:00 07/08/20 10:03 Polyethylene Glycol 3350 17 Gm Packet PO 17 gm DAILY JOYCE Administration Scopolamine 1.5 mg 07/01/20 18:00 07/07/20 17:59 Scopolamine 1.5 Mg/72 Hour Patch TD 1.5 mg Q3D JOYCE Administration Senna/Docusate Sodium 1 tab 06/30/20 21:00 07/08/20 10:03 Senokot S 8.6-50 Mg Tab PO 1 tab BID JOYCE Administration Zolpidem Tartrate 5 mg 06/30/20 00:54 07/07/20 20:12 Zolpidem Tartrate 5 Mg Tab PO 5 mg HSPRN PRN Administration Insomnia - Exam General Appearance: NAD, awake alert Eye: PERRL, anicteric sclera ENT: normocephalic atraumatic, no oropharyngeal lesions Neck: supple, symmetric, no JVD, no thyromegaly Heart: RRR, no murmur, no gallops, no rubs Respiratory: no wheezes, no rales, no ronchi Gastrointestinal: soft, non-tender, non-distended, normal bowel sounds Gastrointestinal - other findings: Plata catheter in place Extremities: no cyanosis, no clubbing, no edema Skin: normal turgor, no lesions Neurological: no focal deficits Musculoskeletal: normal tone, normal strength Psychiatric: normal affect, normal behavior Hosp A/P (1) Symptomatic anemia Code(s): D64.9 - ANEMIA, UNSPECIFIED Status: Acute Plan: During this admission patient has given 2 units of blood transfusion, subsequently his H&H remained stable (2) Abnormal LFTs Code(s): R94.5 - ABNORMAL RESULTS OF LIVER FUNCTION STUDIES Status: Acute Plan: Patient has mild LFT abnormality, in recent past patient had a CT abdomen and pelvis and ultrasound right upper quadrant which did not show any significant finding other than mild hepatomegaly and gallbladder sludge, he does not have any [place] sign (3) Leukocytosis Code(s): D72.829 - ELEVATED WHITE BLOOD CELL COUNT, UNSPECIFIED Status: Acute Qualifiers: Leukocytosis type: bandemia Qualified Code(s): D72.825 - Bandemia Plan: Most likely this leukocytosis related with his underlying tumor, no clinical evidence of infection (4) Prostate cancer metastatic to bone Code(s): C61 - MALIGNANT NEOPLASM OF PROSTATE; C79.51 - SECONDARY MALIGNANT NEOPLASM OF BONE Status: Chronic (5) 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 - OTHER PULMONARY EMBOLISM WITHOUT ACUTE COR PULMONALE Status: Chronic Plan: This was diagnosed back in April with a CT angiography, (6) Anemia of chronic disease Code(s): D63.8 - ANEMIA IN OTHER CHRONIC DISEASES CLASSIFIED ELSEWHERE Status: Chronic (7) Thrombocytopenia Code(s): D69.6 - THROMBOCYTOPENIA, UNSPECIFIED Status: Chronic (8) Tobacco abuse Code(s): Z72.0 - TOBACCO USE Status: Chronic (9) Constipation Code(s): K59.00 - CONSTIPATION, UNSPECIFIED Status: Acute Plan: Likely due to opioid therapy, treat with a stool softener as needed basis - Plan old records reviewed/req, PT/OT, rn social services Treat underlying constipation, Continue PT OT Await placement Medication reviewed and continue for symptomatic and supportive care
[2020-07-08] MEDS ORDERED: Loratadine 10 MG TAB PO PRN (11:12)
[2020-07-08] MEDS ORDERED: Diabetic Tussin 200 MG/10 ML UDCUP PO PRN (11:12)
[2020-07-08] MEDS ORDERED: hydrALAZINE 20 MG/ML VIAL SLOW IVP PRN (11:12)
[2020-07-08] MEDS ORDERED: Ondansetron ODT 4 MG TAB PO PRN (11:12)
[2020-07-08] MEDS ORDERED: Cepastat Lozenges 1 LOZ PO PRN (11:12)
[2020-07-08] MEDS ORDERED: Benzonatate 100 MG CAP PO PRN (11:12)
[2020-07-08] MEDS ORDERED: Sodium Chloride 0.65% Nasal 44 ML BOT EA NARE PRN (11:12)
[2020-07-08] MEDS ORDERED: Bisacodyl 10 MG SUPP PR PRN (11:12)
--- NOTE | 2020-07-08 13:20 | PDOC.DS.DS ---
Provider - Provider Date of Admission: 06/29/20 20:49 Date of Discharge: 07/08/20 Admitting Provider: Deshawn Negron MD Consultations: Oncology Primary Care Physician: Nicolas Yates MD Course - Hospital Course Hospital Course: 64 yr old AA male with known met prostate cancer , recent PE 2 months ago on Coumadin -Admitted after progressive weakness, inability to move , diffuse body pains , self stopped meds since last 2 weeks -Patient was noted with low h/h at 6.1 -He denies any bleeding , no hematochezia or hematemesis -State he ran out of his meds except his pain pills, -states he sees Dr Valenzuela and is scheduled to have start chemo soon, record review shows he has been on casodex and getting intermoittent zoladex shots -He describe being told by his oncologist of a planned chemo regime. -he is worried about his lack of ambulation and state he will like to get better .Getting 2 unit of PRBC While in hospital oncology was following, his pain was controlled with pain medication, because of his physical deconditioning he was required correction home placement and with help of special education case manager we have arranged. Constipation addressed while in hospital. Patient seen and examined bedside today, please see my progress note from today for more detail. Resuscitation Status: 07/04/20 23:04 Resuscitation Status Routine Co-Sign Provider: Resuscitation Status: FULL: Full Resuscitation Discussed with: Patient Additional comments: Patient refused to sign DNAR, although earlier discussed with sister and day attending. Would like to reverse his code status to FULL. - Labs Lab Results: 07/05/20 06:29 07/05/20 06:29 - Physical Exam Vitals: Vital Signs (12 hours) Temp Pulse Resp BP Pulse Ox 07/08/20 11:59 98.7 F 91 18 129/73 95 07/08/20 08:00 98.9 F 101 H 18 131/79 96 07/08/20 04:00 98.2 F 93 20 107/60 93 L Weight Weight 140 lb Most Recent Monitor Data Heart Rate from ECG 103 Physical Exam: The patient was seen and examined on the day of discharge. Problem - Problem (1) Symptomatic anemia Code(s): D64.9 - ANEMIA, UNSPECIFIED Status: Acute (2) Abnormal LFTs Code(s): R94.5 - ABNORMAL RESULTS OF LIVER FUNCTION STUDIES Status: Acute (3) Leukocytosis Code(s): D72.829 - ELEVATED WHITE BLOOD CELL COUNT, UNSPECIFIED Status: Acute Qualifiers: Leukocytosis type: bandemia Qualified Code(s): D72.825 - Bandemia (4) Prostate cancer metastatic to bone Code(s): C61 - MALIGNANT NEOPLASM OF PROSTATE; C79.51 - SECONDARY MALIGNANT NEOPLASM OF BONE Status: Chronic (5) 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 - OTHER PULMONARY EMBOLISM WITHOUT ACUTE COR PULMONALE Status: Chronic (6) Anemia of chronic disease Code(s): D63.8 - ANEMIA IN OTHER CHRONIC DISEASES CLASSIFIED ELSEWHERE Status: Chronic (7) Thrombocytopenia Code(s): D69.6 - THROMBOCYTOPENIA, UNSPECIFIED Status: Chronic (8) Tobacco abuse Code(s): Z72.0 - TOBACCO USE Status: Chronic (9) Constipation Code(s): K59.00 - CONSTIPATION, UNSPECIFIED Status: Acute Plan - Discharge Medications Prescriptions: Bicalutamide [Casodex] 50 mg PO DAILY #30 tab Home Medications: Medication Instructions Recorded Confirmed Type Cyanocobalamin (Vitamin B-12) 1,000 mcg PO DAILY #30 tab 03/03/20 06/30/20 Rx [Vitamin B-12] Ferrous Sulfate [Feosol] 325 mg PO BID-WM #30 tab 03/03/20 06/30/20 Rx Polyethylene Glycol 3350 [Miralax] 17 gm PO DAILY PRN 03/19/20 06/30/20 History Dicyclomine HCl 20 mg PO Q8HR PRN 06/30/20 06/30/20 History HYDROcodone/Acetaminophen [[place] 1 each PO Q4HR PRN 06/30/20 06/30/20 History 5-325 Tablet] Bicalutamide [Casodex] 50 mg PO DAILY #30 tab 07/08/20 Rx Allergies: No Known Drug Allergies Allergy (Verified 06/30/20 01:19) - Discharge Instructions Activity:: Activity as Tolerated Nourishment:: Regular Diet Therapies:: Occupational Therapy, Physical Therapy Equipment/Supplies:: Plata Care IV Therapy:: Not Applicable - Follow up Plan Referrals: Nicolas Yates MD [Primary Care Provider] - Disposition: SENIOR CARE FACILITY Quality - Care Measures CORE MEASURES:: N/A
[2020-07-08 16:23] VITALS: BP 125/70; TEMP 99.3
[2020-07-08] MEDS ORDERED: Polyethylene Glycol 3350 17 GM Packet PO SCH (21:00)
== END 2020-07-08 16:28 | DRG 812 ==
LOC: ERS 17:33 → 3SE 20:24 → ERHOLD 20:49 → 3SE 06-30 01:07 → ONC 07-07 17:45
PROVIDERS: ADMIT Student in an Organized Health Care Education/Training Program; ATTEND Internal Medicine
PROC: 30233N1 Transfusion of Nonautologous Red Blood Cells into Peripheral Vein, Percutaneous Approach (ICD-10-PCS; principal; 2020-06-29)
DX: D64.9 Anemia, unspecified (principal); C79.51 Secondary malignant neoplasm of bone; C61 Malignant neoplasm of prostate; K59.00 Constipation, unspecified; D69.6 Thrombocytopenia, unspecified; Z72.0 Tobacco use; D72.829 Elevated white blood cell count, unspecified; R94.5 Abnormal results of liver function studies; Z86.711 Personal history of pulmonary embolism; I10 Essential (primary) hypertension
CPT/HCPCS: 36415; 36416; 36430; 71045; 74019; 80053; 83540; 83550; 83690; 83735; 84153; 84484; 85025; 85610; 85730; 86850; 86900; 86901; 87635; 93970; 94760; 96374; 96375; 96376; J1650; J1940; J2212; J2270; J2405; P9016; U0003

== ENCOUNTER 2020-07-20 13:24 | Emergency (ER) | payer OTHER, SELFPAY ==
[2020-07-20 14:37] LABS: Mean Corpuscular HGB CONC 30.5 g/dL (32.0-36.0); Mean Corpuscular Hemoglobin 25.9 pg (27.0-31.0); Mean Platelet Volume 10.1 fL (7.4-10.4); Platelet Count 135 thou/uL (130-400); Red Blood Cell (RBC) Count 2.69 mill/uL (4.70-6.10)
[2020-07-20 14:56] LABS: Anisocytosis SLIGHT = 6-15 cells (100X) (0-5/hpf); Band 25 % (5-11); Hypochromia SLIGHT = 6-15 cells (100X) (0-5/hpf); Lymphocytes 19 % (21-51); MDiff Complete? YES; Metamyelocyte 11 % (0-0); Monocytes 13 % (0-10); Myelocyte 5 % (0-0); Neutrophil 26 % (42-75); Nucleated RBC 7 % (0); Ovalocytes SLIGHT = 2-5 cells (100X) (0-1/hpf); Platelet Morphology Comment Appears Adequate; Polychromasia MODERATE = 3-4 cells (100X) (0-2/hpf); Reactive Lymphocytes 1 % (0-10); Schistocytes SLIGHT = 2-5 cells (100X) (0-1/hpf); Tear Drops SLIGHT = 2-5 cells (100X) (0-1/hpf); White Blood Cell (WBC) Count 10.8 thou/uL (4.8-10.8)
[2020-07-20 14:59] LABS: ALT (SGPT) 15 U/L (8-55); AST (SGOT) 15 U/L (5-34); Albumin 2.9 g/dL (3.4-4.8); Alkaline Phosphatase 193 U/L (40-110); Anion Gap 14 mmol/L (10-20); BUN (Urea Nitrogen) 9 mg/dL (8.4-25.7); Bilirubin, Total 0.3 mg/dL (0.2-1.2); Calc. Creatinine Clearance 0 mL/min (70-130); Calcium 8.1 mg/dL (7.8-10.44); Carbon Dioxide 25 mmol/L (23-31); Chloride 104 mmol/L (98-107); Globulin 3.2 g/dL (2.4-3.5); Glucose 87 mg/dL (80-115); Potassium 4.3 mmol/L (3.5-5.1); Protein, Total 6.1 g/dL (5.8-8.1); Sodium 139 mmol/L (136-145)
== END 2020-07-20 22:01 ==
LOC: ERS 13:24
DX: D64.9 Anemia, unspecified (principal); Z85.46 Personal history of malignant neoplasm of prostate; Z86.711 Personal history of pulmonary embolism; Z79.899 Other long term (current) drug therapy
CPT/HCPCS: 36415; 36430; 80053; 85025; 86850; 86900; 86901; 93005; P9016

== ENCOUNTER 2020-08-05 13:30 | Inpatient (IN) | payer OTHER, SELFPAY ==
[2020-08-05 14:16] LABS: Hemoglobin 6.3 g/dL (14.0-18.0); Mean Corpuscular HGB CONC 30.9 g/dL (32.0-36.0); Mean Corpuscular Hemoglobin 25.9 pg (27.0-31.0); Platelet Count 137 thou/uL (130-400); RBC Distribution Width 18.1 % (11.5-14.5); Red Blood Cell (RBC) Count 2.43 mill/uL (4.70-6.10); White Blood Cell (WBC) Count 14.7 thou/uL (4.8-10.8)
[2020-08-05 14:36] LABS: Anisocytosis SLIGHT = 6-15 cells (100X) (0-5/hpf); Band 19 % (5-11); Differential Comment Blast-Like Cell(s); Eosinophils 1 % (0-10); Large Platelets SLIGHT; Lymphocytes 5 % (21-51); MDiff Complete? YES; Metamyelocyte 7 % (0-0); Monocytes 5 % (0-10); Myelocyte 14 % (0-0); Neutrophil 46 % (42-75); Nucleated RBC 4 % (0); Ovalocytes SLIGHT = 2-5 cells (100X) (0-1/hpf); Platelet Morphology Comment Appears Adequate; Poikilocytosis SLIGHT = 6-15 cells (100X) (0-5/hpf); Polychromasia SLIGHT = 2-3 cells (100X) (0-2/hpf); Promyelocytes 1 % (0-0); Reflex for Review?? NO; Schistocytes SLIGHT = 2-5 cells (100X) (0-1/hpf); Tear Drops SLIGHT = 2-5 cells (100X) (0-1/hpf); Toxic Granulation SLIGHT
[2020-08-05] MEDS ORDERED: Azithromycin 500 MG VIAL ONE ×2 (16:35→17:29)
[2020-08-05] MEDS ORDERED: cefTRIAXone\\ROCEPHIN 2 GM VIAL ONE (16:35)
--- NOTE | 2020-08-05 16:44 | RAD ---
RADIOGRAPH CHEST 1 VIEW: DATE: 08/05/2020 TIME: 4:35 PM HISTORY: 64-year-old male follow-up pneumonia COMPARISON: 06/30/2020 FINDINGS: The previously demonstrated mostly peripheral infiltrates have become more extensive, now central and peripheral, with some areas having become confluent into regions of consolidation. Lung apices are less involved than the mid and lower lung zones. There may or may not be bilateral pleural effusions. No cardiomegaly or pneumothorax. Extensive sclerotic osseous lesions. IMPRESSION: 1. Significant interval worsening of bilateral pneumonia. 2. Diffuse osteoblastic skeletal metastatic disease.
[2020-08-05 17:05] LABS: ALT (SGPT) 21 U/L (8-55); AST (SGOT) 17 U/L (5-34); Albumin 2.9 g/dL (3.4-4.8); Alkaline Phosphatase 215 U/L (40-110); Anion Gap 17 mmol/L (10-20); BUN (Urea Nitrogen) 11 mg/dL (8.4-25.7); Bilirubin, Total 0.3 mg/dL (0.2-1.2); Calc. Creatinine Clearance 0 mL/min (70-130); Calcium 8.2 mg/dL (7.8-10.44); Carbon Dioxide 24 mmol/L (23-31); Chloride 100 mmol/L (98-107); Globulin 3.5 g/dL (2.4-3.5); Glucose 117 mg/dL (80-115); Potassium 4.1 mmol/L (3.5-5.1); Protein, Total 6.4 g/dL (5.8-8.1); Sodium 137 mmol/L (136-145)
[2020-08-05 19:37] VITALS: BMI 20.2
[2020-08-05] MEDS ORDERED: Ondansetron PF 4 MG/2 ML Vial IVP PRN (19:45)
[2020-08-05] MEDS ORDERED: Ondansetron ODT 4 MG TAB SL PRN (19:45)
[2020-08-05] MEDS ORDERED: Acetaminophen 325 MG TAB PO PRN (19:45)
[2020-08-05] MEDS: Sodium Chloride 0.9% 1,000 ML IV SCH (22:55)
[2020-08-05] MEDS ORDERED: Guaifenesin DM 100-10/5 ML UDCUP PO PRN (23:30)
[2020-08-06 01:00] LABS: Hemoglobin 8.6 g/dL (14.0-18.0)
[2020-08-06] MEDS ORDERED: Ondansetron PF 4 MG/2 ML Vial IVP PRN (03:05)
[2020-08-06] MEDS ORDERED: Acetaminophen 325 MG TAB PO PRN (03:05)
[2020-08-06] MEDS ORDERED: hydrALAZINE 20 MG/ML VIAL SLOW IVP PRN (03:05)
[2020-08-06] MEDS ORDERED: Labetalol HCl 100 MG/20 ML VIAL SLOW IVP PRN (03:05)
[2020-08-06] MEDS ORDERED: cloNIDine 0.1 MG TAB PO PRN (03:05)
[2020-08-06] MEDS ORDERED: Promethazine HCl 12.5 MG in Sodium Chloride 0.9% 50 ML IVPB PRN (03:05)
[2020-08-06] MEDS ORDERED: Electrolyte Replacement Protocol 1 EACH FS SCH (03:15)
--- NOTE | 2020-08-06 03:29 | PDOC.HHP ---
Hospitalist HPI Abnormal labwork History of Present Illness: Patient is a 64 year old male with PMH significant for prostate cancer and anemia who presents to ED for abnormal labwork. Patient was recently diagnosed with pneumonia, lives at [facility], [place], [facility] 3-4 days ago diagnosed with pneumonia and started on antibiotics there (doxycycline), today labwork checked and sent to ED, here hemoglobin 6.3, WBC 14.7, given 2u pRBC w/ improvement to 8.6. CXR reveals osteoblastic metastatic disease and worsening of bilateral pneumonia. patient denies seeing any black or red stool, denies any bleeding. Allergies/Adverse Reactions: Allergy/AdvReac Type Severity Reaction Status Date / Time No Known Drug Allergies Allergy Verified 06/30/20 01:19 Home Medications: Medication Instructions Recorded Confirmed Type Cyanocobalamin (Vitamin B-12) 1,000 mcg PO DAILY #30 tab 03/03/20 08/06/20 Rx [Vitamin B-12] Polyethylene Glycol 3350 [Miralax] 17 gm PO Q6HR PRN 03/19/20 08/06/20 History Dicyclomine HCl 20 mg PO Q8HR PRN 06/30/20 08/06/20 History Bicalutamide [Casodex] 50 mg PO DAILY #30 tab 07/08/20 08/06/20 Rx Acetaminophen W/ Codeine [Tylenol 1 tab PO Q4HR PRN 08/06/20 08/06/20 History #3] Acetaminophen [Tylenol] 325 mg PO Q8HR PRN 08/06/20 08/06/20 History Benzonatate 200 mg PO Q8HR PRN 08/06/20 08/06/20 History Doxycycline Hyclate 100 mg PO SEEPHYS 08/06/20 08/06/20 History Ferrous Sulfate [Feosol] 325 mg PO BID 08/06/20 08/06/20 History Ipratropium/Albuterol Sulfate 3 ml NEB QID 08/06/20 08/06/20 History [Duoneb] Past History: PMHx: history of malignancy, primary site prostate, Hx PE 2020 Hepatitis (pt unsure OF TYPE). PSHx: Patient has no surgical history. FHx: reviewed, no significant family history Social: Patient is a former tobacco user Lives at [facility], Patient denies alcohol use, reports quitting last year Hospitalist HPI ROS Constitutional: denies: fever, chills, sweats, weakness, malaise, other Eyes: denies: pain, vision change, conjunctivae inflammation, eyelid inflammation, redness, other ENT: denies: ear pain, ear discharge, nose pain, nose discharge, nose congesti on, mouth pain, mouth swelling, throat pain, throat swelling, other Respiratory: reports: shortness of breath. denies: cough, dry, hemoptysis, SOB with excertion, pleuritic pain, sputum, wheezing, other Cardiovascular: denies: chest pain, palpitations, orthopnea, paroxysmal noc. dyspnea, edema, light headedness, other Gastrointestinal: denies: nausea, vomiting, abdominal pain, diarrhea, constipation, melena, hematochezia, other Genitourinary: denies: dysuria, frequency, incontinence, hematuria, retention, other Musculoskeletal: denies: neck pain, shoulder pain, arm pain, back pain, hand pain, leg pain, foot pain, other Skin: denies: rash, lesions, bhavik, bruising, other Neurological: denies: weakness, numbness, incoordination, change in speech, confusion, seizures, other All other systems reviewed; all pertinent +/- noted in HPI/Subj Hospitalist Exam Vitals: Vital Signs (12 hours) Temp Pulse Pulse Resp BP BP Pulse Ox 08/05/20 22:55 99 F 92 18 107/67 98 08/05/20 20:25 99 F 85 18 100/65 98 08/05/20 20:10 99.1 F 74 18 99/62 98 08/05/20 20:00 98 08/05/20 19:10 99.4 F 74 18 92/54 L 98 Weight Weight 145 lb 9.6 oz General Appearance: NAD, awake alert Eye: PERRL, anicteric sclera ENT: normocephalic atraumatic, no oropharyngeal lesions, moist mucosa Neck: supple, symmetric, no JVD, no thyromegaly, no lymphadenopathy, no carotid bruit Heart: RRR, no murmur, no gallops, no rubs, normal peripheral pulses Respiratory: CTAB, no wheezes, no rales, no ronchi, normal chest expansion, no tachypnea, normal percussion Gastrointestinal: soft, non-tender, non-distended, normal bowel sounds, no palpable masses, no hepatomegaly, no splenomegaly, no bruit Extremities: no cyanosis, no clubbing, no edema Skin: normal turgor, no lesions, no rashes Neurological: cranial nerve grossly intact, normal sensation to touch, no weakness, no focal deficits, no new deficit Musculoskeletal: normal tone, normal strength, no muscle wasting Psychiatric: normal affect, normal behavior, A&O x 3 Hospitalist Results Result Diagrams: 08/06/20 00:47 08/05/20 14:00 Lab results: Laboratory Last Values WBC 14.7 thou/uL (4.8-10.8) H 08/05/20 14:00 RBC 2.43 mill/uL (4.70-6.10) L 08/05/20 14:00 Hgb 8.6 g/dL (14.0-18.0) L 08/06/20 00:47 Hct 27.2 % (42.0-52.0) L 08/06/20 00:47 MCV 84.0 fL (78.0-98.0) 08/05/20 14:00 MCH 25.9 pg (27.0-31.0) L 08/05/20 14:00 MCHC 30.9 g/dL (32.0-36.0) L 08/05/20 14:00 RDW 18.1 % (11.5-14.5) H 08/05/20 14:00 Plt Count 137 thou/uL (130-400) 08/05/20 14:00 MPV 11.0 fL (7.4-10.4) H 08/05/20 14:00 Neutrophils % (Manual) 46 % (42-75) 08/05/20 14:00 Band Neuts % (Manual) 19 % (5-11) H 08/05/20 14:00 Lymphocytes % (Manual) 5 % (21-51) L 08/05/20 14:00 Monocytes % (Manual) 5 % (0-10) 08/05/20 14:00 Eosinophils % (Manual) 1 % (0-10) 08/05/20 14:00 Metamyelocytes % (Man) 7 % (0-0) H 08/05/20 14:00 Myelocytes % 14 % (0-0) H 08/05/20 14:00 Promyelocytes % (Man) 1 % (0-0) H 08/05/20 14:00 Lymphocytes # Not Reportable 08/05/20 14:00 Nucleated RBCs # (Man) 4 % (0) H 08/05/20 14:00 Differential Comment Blast-Like Cell(s) 08/05/20 14:00 Other Cell Type 2 08/05/20 14:00 Toxic Granulation SLIGHT 08/05/20 14:00 Large Platelets SLIGHT 08/05/20 14:00 Plt Morphology Comment Appears Adequate 08/05/20 14:00 Polychromasia SLIGHT = 2-3 cells (100X) (0-2/hpf) 08/05/20 14:00 Poikilocytosis SLIGHT = 6-15 cells (100X) (0-5/hpf) 08/05/20 14:00 Anisocytosis SLIGHT = 6-15 cells (100X) (0-5/hpf) 08/05/20 14:00 Tear Drop Cells SLIGHT = 2-5 cells (100X) (0-1/hpf) 08/05/20 14:00 Ovalocytes SLIGHT = 2-5 cells (100X) (0-1/hpf) 08/05/20 14:00 Schistocytes SLIGHT = 2-5 cells (100X) (0-1/hpf) 08/05/20 14:00 Sodium 137 mmol/L (136-145) 08/05/20 14:00 Potassium 4.1 mmol/L (3.5-5.1) 08/05/20 14:00 Chloride 100 mmol/L (98-107) 08/05/20 14:00 Carbon Dioxide 24 mmol/L (23-31) 08/05/20 14:00 Anion Gap 17 mmol/L (10-20) 08/05/20 14:00 BUN 11 mg/dL (8.4-25.7) 08/05/20 14:00 Creatinine 0.65 mg/dL (0.7-1.3) L 08/05/20 14:00 Estimated GFR (MDRD) Greater than 90 08/05/20 14:00 Glucose 117 mg/dL (80-115) H 08/05/20 14:00 Calcium 8.2 mg/dL (7.8-10.44) 08/05/20 14:00 Total Bilirubin 0.3 mg/dL (0.2-1.2) 08/05/20 14:00 AST 17 U/L (5-34) 08/05/20 14:00 ALT 21 U/L (8-55) 08/05/20 14:00 Alkaline Phosphatase 215 U/L (40-110) H 08/05/20 14:00 Serum Total Protein 6.4 g/dL (5.8-8.1) 08/05/20 14:00 Albumin 2.9 g/dL (3.4-4.8) L 08/05/20 14:00 Globulin 3.5 g/dL (2.4-3.5) 08/05/20 14:00 Albumin/Globulin Ratio 0.8 g/dL (1.2-2.2) L 08/05/20 14:00 Blood Type O POSITIVE 08/05/20 14:56 Antibody Screen NEGATIVE 08/05/20 14:56 Crossmatch See Detail 08/05/20 14:56 Additional comment: labs, imaging reports, ed documents reviewed. Hospitalist H&P A/P Plan: Patient is a 64 year old male with PMH significant for prostate cancer and anemia who presents to ED for abnormal labwork. # pneumonia - failed outpatient abx, worsening on imaging, lives at [facility], [place], diagnosed appx 3-4 days ago and started on antibiotics there (doxycycline) - admit to floor - azithromycin/ceftriaxone - PRN breathing treatment - pt/ot # anemia - patient denies known GI bleeding, perhaps related to oncologic process, consider oncology consult in AM - transfuse prn to keep hgb > 7 # metastatic prostate cancer - outpatient follow up recommended DVT ppx - SCD GI ppx - PPI
[2020-08-06] MEDS: Sodium Chloride 0.9% 1,000 ML IV SCH (04:14)
[2020-08-06 06:39] LABS: Anion Gap 16 mmol/L (10-20); BUN (Urea Nitrogen) 10 mg/dL (8.4-25.7); Calc. Creatinine Clearance 133 mL/min (70-130); Calcium 8.1 mg/dL (7.8-10.44); Carbon Dioxide 21 mmol/L (23-31); Chloride 103 mmol/L (98-107); Glucose 83 mg/dL (80-115); Magnesium 1.6 mg/dL (1.6-2.6); Potassium 4.3 mmol/L (3.5-5.1); Sodium 136 mmol/L (136-145)
[2020-08-06 07:38] LABS: Mean Corpuscular HGB CONC 31.6 g/dL (32.0-36.0); Mean Corpuscular Hemoglobin 26.9 pg (27.0-31.0); Mean Corpuscular Volume 85.2 fL (78.0-98.0); Mean Platelet Volume 11.1 fL (7.4-10.4); Platelet Count 118 thou/uL (130-400); RBC Distribution Width 17.2 % (11.5-14.5); Red Blood Cell (RBC) Count 2.98 mill/uL (4.70-6.10); White Blood Cell (WBC) Count 17.1 thou/uL (4.8-10.8)
[2020-08-06] MEDS ORDERED: Magnesium 2 GM/50 ML 2 GM in Premix Bag 1 BAG IVPB SCH (08:00)
[2020-08-06] MEDS: Guaifenesin DM 100-10/5 ML UDCUP PO PRN (08:03)
[2020-08-06 08:04] LABS: Band 33 % (5-11); Lymphocytes 12 % (21-51); MDiff Complete? YES; Metamyelocyte 3 % (0-0); Monocytes 8 % (0-10); Myelocyte 9 % (0-0); Neutrophil 31 % (42-75); Nucleated RBC 1 % (0); Platelet Morphology Comment Appears Decreased; Polychromasia SLIGHT = 2-3 cells (100X) (0-2/hpf); Reactive Lymphocytes 4 % (0-10); Tear Drops SLIGHT = 2-5 cells (100X) (0-1/hpf)
--- NOTE | 2020-08-06 10:20 | PDOC.HOSPP ---
- Subjective Encounter Date: 08/06/20 Encounter Time: 10:18 Subjective: need treatment for prostate cancer - Objective Vital Signs & Weight: Vital Signs (12 hours) Temp Pulse Pulse Resp BP BP BP 08/06/20 08:00 08/06/20 07:00 98.4 F 84 17 111/67 08/06/20 04:03 98.9 F 80 18 97/56 L 08/06/20 00:05 99 F 75 18 100/60 08/05/20 22:55 99 F 92 18 107/67 Pulse Ox 08/06/20 08:00 92 L 08/06/20 07:00 92 L 08/06/20 04:03 93 L 08/06/20 00:05 95 08/05/20 22:55 98 Weight Weight 145 lb 9.6 oz I&O: 08/05/20 08/06/20 08/07/20 06:59 06:59 06:59 Intake Total 2400 Output Total 700 Balance 1700 Result Diagrams: 08/06/20 05:54 08/06/20 05:54 Hospitalist ROS - Medication Medications: Active Medications Generic Name Dose Route Start Last Admin Trade Name Freq PRN Reason Stop Dose Admin Guaifenesin/Dextromethorphan 15 ml 08/06/20 03:05 08/06/20 08:03 Guaifenesin Dm 100-10/5 Ml Udcup PO 15 ml Q4H PRN Administration Cough Pantoprazole Sodium 40 mg 08/06/20 09:00 08/06/20 08:03 Pantoprazole 40 Mg Tab PO 40 mg DAILY JOYCE Administration Hospitalist Exam Vitals: Vital Signs (12 hours) Temp Pulse Pulse Resp BP BP BP 08/06/20 08:00 08/06/20 07:00 98.4 F 84 17 111/67 08/06/20 04:03 98.9 F 80 18 97/56 L 08/06/20 00:05 99 F 75 18 100/60 08/05/20 22:55 99 F 92 18 107/67 Pulse Ox 08/06/20 08:00 92 L 08/06/20 07:00 92 L 08/06/20 04:03 93 L 08/06/20 00:05 95 08/05/20 22:55 98 Weight Weight 145 lb 9.6 oz General Appearance: awake alert Neck: no JVD Heart: RRR, no murmur Respiratory: wheezes (BS, rhonchi) Gastrointestinal: soft, normal bowel sounds Extremities: no edema Hosp A/P (1) PNA (pneumonia) Code(s): J18.9 - PNEUMONIA, UNSPECIFIED ORGANISM Status: Acute Qualifiers: Pneumonia type: due to Pneumococcus Laterality: bilateral Lung location: unspecified part of lung Qualified Code(s): J13 - Pneumonia due to Streptococcus pneumoniae (2) Prostate cancer, primary, with metastasis from prostate to other site Code(s): C61 - MALIGNANT NEOPLASM OF PROSTATE Status: Chronic (3) Anemia of chronic disease Code(s): D63.8 - ANEMIA IN OTHER CHRONIC DISEASES CLASSIFIED ELSEWHERE Status: Chronic (4) Prostate cancer metastatic to bone Code(s): C61 - MALIGNANT NEOPLASM OF PROSTATE; C79.51 - SECONDARY MALIGNANT NEOPLASM OF BONE Status: Chronic (5) Tobacco abuse Code(s): Z72.0 - TOBACCO USE Status: Chronic - Plan cultures pending cont iv antibx for presumptive Dx of PNA post transfusion PRBC for recurrent anemia without evidense GI blood loss oncology consult
[2020-08-06] MEDS ORDERED: Polyethylene Glycol 3350 17 GM Packet PO PRN (10:25)
[2020-08-06 12:05] LABS: Iron Binding Capacity, Total 151 mcg/dL (261-462)
[2020-08-06 12:06] LABS: Iron 39 ug/dL (65-175)
--- NOTE | 2020-08-06 15:46 | CON ---
DATE OF CONSULTATION: REASON FOR CONSULT: Metastatic prostate cancer. HISTORY OF PRESENT ILLNESS: Mr. Lopez is a 64-year-old gentleman, who was diagnosed with metastatic prostate cancer in 2016. He had bone and lymph node metastatic disease. He underwent Lupron for four years with progression after two years. He was placed on Casodex, which he stopped due to noncompliance. He was hospitalized in February at this facility and seen by Dr. Aguilera. He was to start treatment with Xtandi and Lupron. He at that time had no insurance and required financial approval. He unfortunately never turned in his paperwork until sister was involved in late May. The patient was admitted to this facility in June and was restarted on Casodex. He went to [facility] due to inability to care for himself. He was admitted to this facility yesterday with possible pneumonia. On arrival, his hemoglobin was 6.3. He has been transfused 2 units and is currently at 8.0. PAST MEDICAL AND SURGICAL HISTORY: 1. Metastatic prostate cancer. 2. 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 3. Portal vein thrombus. ALLERGIES: NO KNOWN DRUG ALLERGIES. HOME MEDICATIONS: 1. Tylenol 3 p.r.n. 2. DuoNeb p.r.n. 3. Iron b.i.d. 4. MiraLAX p.r.n. 5. Casodex 50 mg daily. 6. Vitamin B12 daily. FAMILY HISTORY: Sister had breast cancer. Grandmother had colon cancer. SOCIAL HISTORY: , 42 pack-year history of smoking. Now in [facility]. REVIEW OF SYSTEMS: Positive for lower back pain and weakness. Otherwise, negative. PHYSICAL EXAMINATION: VITAL SIGNS: Temperature is 98.4, pulse is 84, respiratory rate is 17, BP is 120/74. He is 92% on room air. GENERAL: This is a chronically ill-appearing male, in no acute distress. HEENT: Normocephalic, atraumatic. Pupils are equal and reactive to light. NECK: Supple. CV: Regular rate and rhythm. LUNGS: Clear. ABDOMEN: Soft. Bowel sounds are positive. : He has a Plata catheter in place with yellow urine. EXTREMITIES: No clubbing or cyanosis. NEUROLOGIC: He has bilateral lower extremity weakness. PERTINENT LABORATORY DATA AND X-RAYS: WBCs are 17.1, hemoglobin 8, hematocrit 25.4, platelet count is 118,000. He has 31% neutrophils, 33% bands, 12% lymphocytes. Sodium 136, potassium 4.3, chloride 103, CO2 is 21, BUN is 10, creatinine 0.53, calcium 8.1, magnesium 1.6, bilirubin 0.3, AST is 17, ALT is 21, alkaline phosphatase is 215. Serum total protein 6.4, albumin 2.9, globulin 3.5. B12 is 576. ASSESSMENT: 1. Metastatic prostate cancer. 2. Chronic anemia secondary to cancer. 3. Pneumonia. DISCUSSION: The patient has been taking Casodex while at the [facility]. We have had multiple difficulties getting him oral Xtandi due to lack of funding. However, his sister now has obtained the medicine for him and we can start treatment once he returns to [facility]. He will stop Casodex and start Xtandi as prescribed. He will need Lupron in the future. He will need to see Dr. Aguilera in our clinic prior to this. We will make an appointment for him to be seen in the next week or two. Case has been discussed with Dr. Aguilera Our porter sample case has been in contact with the sister. We will follow along with his hospitalization. Job ID: [id number] [facility]
[2020-08-06] MEDS ORDERED: cefTRIAXone\\ROCEPHIN 1 GM in Sodium Chloride 0.9% 100 ML IVPB SCH (16:00)
[2020-08-06] MEDS ORDERED: Azithromycin 500 MG in Sodium Chloride 0.9% 250 ML 250 ML IVPB SCH (17:00)
[2020-08-06] MEDS ORDERED: Enoxaparin Sodium 40 MG/0.4 ML SYRINGE SC SCH (21:00)
[2020-08-06] MEDS: HYDROcodone/Acetaminophen 5/325 mg Tablet PO PRN (21:28)
[2020-08-07 05:46] LABS: Anion Gap 18 mmol/L (10-20); BUN (Urea Nitrogen) 7 mg/dL (8.4-25.7); Calc. Creatinine Clearance 141 mL/min (70-130); Calcium 8.2 mg/dL (7.8-10.44); Carbon Dioxide 18 mmol/L (23-31); Chloride 105 mmol/L (98-107); Glucose 76 mg/dL (80-115); Magnesium 1.9 mg/dL (1.6-2.6); Potassium 6.2 mmol/L (3.5-5.1); Sodium 135 mmol/L (136-145)
[2020-08-07] MEDS ORDERED: Magnesium 2 GM/50 ML 2 GM in Premix Bag 1 BAG IVPB SCH (06:30)
[2020-08-07 07:23] LABS: Hemoglobin 8.7 g/dL (14.0-18.0); Mean Corpuscular HGB CONC 31.5 g/dL (32.0-36.0); Mean Corpuscular Hemoglobin 26.9 pg (27.0-31.0); Mean Corpuscular Volume 85.4 fL (78.0-98.0); Mean Platelet Volume 11.3 fL (7.4-10.4); Platelet Count 126 thou/uL (130-400); RBC Distribution Width 17.7 % (11.5-14.5); Red Blood Cell (RBC) Count 3.24 mill/uL (4.70-6.10); White Blood Cell (WBC) Count 15.7 thou/uL (4.8-10.8)
[2020-08-07] MEDS ORDERED: Calcium Gluc 4.6 MEQ/10 ML (100 MG/ML) SLOW IVP SCH (08:09)
[2020-08-07 08:46] LABS: Band 35 % (5-11); Lymphocytes 9 % (21-51); MDiff Complete? YES; Metamyelocyte 12 % (0-0); Monocytes 4 % (0-10); Myelocyte 6 % (0-0); Neutrophil 34 % (42-75); Platelet Morphology Comment Appears Decreased; Polychromasia SLIGHT = 2-3 cells (100X) (0-2/hpf)
[2020-08-07] MEDS ORDERED: Vancomycin 1 GM in Premix Bag 1 BAG IVPB SCH (09:00)
[2020-08-07] MEDS ORDERED: Vancomycin HCl 1 GM in Sodium Chloride 0.9% 250 ML 300 ML IVPB SCH (09:00)
[2020-08-07] MEDS: VANCOMYCIN 1.25 GM/250 ML BAG 1.25 GM in Premix Bag 1 BAG IVPB SCH ×2 (09:16→21:57)
[2020-08-07] MEDS: Piperacillin/Tazobactam 3.375 GM in Sodium Chloride 0.9% 100 ML IVPB SCH ×2 (13:05→18:19)
[2020-08-07 15:31] LABS: Anion Gap 16 mmol/L (10-20); BUN (Urea Nitrogen) 8 mg/dL (8.4-25.7); Calc. Creatinine Clearance 133 mL/min (70-130); Calcium 8.4 mg/dL (7.8-10.44); Carbon Dioxide 22 mmol/L (23-31); Chloride 104 mmol/L (98-107); Glucose 88 mg/dL (80-115); Potassium 4.1 mmol/L (3.5-5.1); Sodium 138 mmol/L (136-145)
--- NOTE | 2020-08-07 16:07 | PDOC.HOSPP ---
- Subjective Encounter Date: 08/07/20 Encounter Time: 16:05 Subjective: This patient is a 64-year-old who came from a [facility] where he has been for the last couple days. He apparently was diagnosed with pneumonia and was started on oral antibiotics. However he started having worsening shortness of breath prompting this transfer to the hospital. Pertinent medical history includes metastatic prostate cancer who was lost to follow-up for a while but now back on treatment. Today his lab work showed hyperkalemia with a potassium of 6.2. The patient was however asymptomatic. He did receive IV calcium gluconate and Kayexalate with prompt improvement in the potassium level. I am concerned about the possibility of healthcare acquired pneumonia and I will broaden his antibiotic coverage. Will cover for both Pseudomonas and MRSA. - Objective Vital Signs & Weight: Vital Signs (12 hours) Temp Pulse Resp BP BP Pulse Ox 08/07/20 10:50 99.2 F 91 28 H 111/71 99 08/07/20 10:45 99 08/07/20 07:45 91 L 08/07/20 07:07 98.4 F 91 15 101/66 99 08/07/20 05:04 97.9 F 96 18 108/70 93 L 08/07/20 04:11 95 Weight Weight 145 lb 9.6 oz I&O: 08/06/20 08/07/20 08/08/20 06:59 06:59 06:59 Intake Total 2400 Output Total 700 850 Balance 1700 -850 Result Diagrams: 08/08/20 04:15 08/08/20 04:15 Radiology Reviewed by me: Yes EKG Reviewed by me: Yes Hospitalist ROS - Review of Systems Constitutional: reports: fever, chills Respiratory: reports: cough, shortness of breath, sputum Gastrointestinal: reports: nausea, vomiting Neurological: reports: weakness - Medication Medications: Active Medications Generic Name Dose Route Start Last Admin Trade Name Freq PRN Reason Stop Dose Admin Hydrocodone Bitart/Acetaminophen 1 tab 08/06/20 03:05 08/06/20 21:28 Hydrocodone/Acetaminophen 5/325 Mg Tablet PO 1 tab Q4H PRN Administration Moderate Pain (4-6) Albuterol/Ipratropium 3 ml 08/06/20 06:54 08/07/20 02:26 Ipratropium/Albuterol Sulfate 3 Ml Neb NEB 3 ml [id number] PRN Administration SOB &/or Wheezing Guaifenesin/Dextromethorphan 15 ml 08/06/20 03:05 08/06/20 08:03 Guaifenesin Dm 100-10/5 Ml Udcup PO 15 ml Q4H PRN Administration Cough Piperacillin Sod/Tazobactam 100 mls @ 200 mls/hr 08/07/20 12:00 08/07/20 13:05 Sod 3.375 gm/ Sodium Chloride IVPB 100 mls Q6HR JOYCE Administration Vancomycin HCl 1.25 gm/ Device 250 mls @ 166.667 mls/hr 08/07/20 09:00 08/07/20 09:16 IVPB 250 mls Q12HR JOYCE Administration Pantoprazole Sodium 40 mg 08/06/20 09:00 08/07/20 09:16 Pantoprazole 40 Mg Tab PO 40 mg DAILY JOYCE Administration Sodium Chloride 10 ml 08/07/20 09:00 08/07/20 09:16 Flush - Normal Saline 10 Ml Syringe IVF 10 ml Q12HR JOYCE Administration Hospitalist Exam Vitals: Vital Signs (12 hours) Temp Pulse Resp BP BP Pulse Ox 08/07/20 10:50 99.2 F 91 28 H 111/71 99 08/07/20 10:45 99 08/07/20 07:45 91 L 08/07/20 07:07 98.4 F 91 15 101/66 99 08/07/20 05:04 97.9 F 96 18 108/70 93 L 08/07/20 04:11 95 Weight Weight 145 lb 9.6 oz General Appearance: NAD, awake alert Eye: PERRL, anicteric sclera ENT: normocephalic atraumatic, no oropharyngeal lesions Neck: supple, symmetric, no JVD, no thyromegaly Heart: RRR, no murmur, no gallops Respiratory: CTAB, no wheezes Gastrointestinal: soft, non-tender, non-distended Neurological: cranial nerve grossly intact Psychiatric: normal affect, normal behavior Hosp A/P (1) Hyperkalemia Code(s): E87.5 - HYPERKALEMIA Status: Acute Plan: His potassium this morning was 6.2. He has since been corrected. (2) PNA (pneumonia) Code(s): J18.9 - PNEUMONIA, UNSPECIFIED ORGANISM Status: Acute Qualifiers: Pneumonia type: due to other aerobic Gram-negative bacteria Laterality: bilateral Lung location: unspecified part of lung Qualified Code(s): J15.6 - Pneumonia due to other Gram-negative bacteria Plan: I am going to treat this as a healthcare acquired pneumonia. I would like to cover for Pseudomonas and MRSA. (3) Prostate cancer, primary, with metastasis from prostate to other site Code(s): C61 - MALIGNANT NEOPLASM OF PROSTATE Status: Chronic (4) Bone metastasis Code(s): C79.51 - SECONDARY MALIGNANT NEOPLASM OF BONE Status: Chronic - Plan old records reviewed/req, PT/OT, incentive spirometry Consults: Palliative Care
[2020-08-07 16:56] LABS: SARS-CoV-2 PCR by NAA Not Detected (NotDetected)
[2020-08-08] MEDS: Piperacillin/Tazobactam 3.375 GM in Sodium Chloride 0.9% 100 ML IVPB SCH ×5 (00:04→23:00)
[2020-08-08 05:00] LABS: Anion Gap 17 mmol/L (10-20); BUN (Urea Nitrogen) 9 mg/dL (8.4-25.7); Calc. Creatinine Clearance 133 mL/min (70-130); Carbon Dioxide 21 mmol/L (23-31); Chloride 103 mmol/L (98-107); Glucose 90 mg/dL (80-115); Magnesium 1.8 mg/dL (1.6-2.6); Potassium 3.6 mmol/L (3.5-5.1); Sodium 137 mmol/L (136-145)
[2020-08-08 05:32] LABS: Band 24 % (5-11); Hemoglobin 7.5 g/dL (14.0-18.0); Lymphocytes 9 % (21-51); MDiff Complete? YES; Mean Corpuscular HGB CONC 31.7 g/dL (32.0-36.0); Mean Corpuscular Hemoglobin 27.8 pg (27.0-31.0); Mean Corpuscular Volume 87.8 fL (78.0-98.0); Mean Platelet Volume 10.6 fL (7.4-10.4); Metamyelocyte 8 % (0-0); Monocytes 4 % (0-10); Myelocyte 6 % (0-0); Neutrophil 49 % (42-75); Nucleated RBC 1 % (0); Platelet Count 130 thou/uL (130-400); RBC Distribution Width 17.8 % (11.5-14.5); Tear Drops SLIGHT = 2-5 cells (100X) (0-1/hpf); White Blood Cell (WBC) Count 14.5 thou/uL (4.8-10.8)
[2020-08-08] MEDS ORDERED: Magnesium 2 GM/50 ML 2 GM in Premix Bag 1 BAG IVPB SCH (06:30)
[2020-08-08] MEDS ORDERED: Goserelin Acetate 10.8 MG KIT SC SCH (09:30)
--- NOTE | 2020-08-08 09:33 | PDOC.MOPN ---
Interval History: Agree with Evy Lamar NP, consult note. See her note for history. - Vital Signs Vital Signs: Vital Signs (12 hours) Temp Pulse Resp BP Pulse Ox 08/08/20 07:43 98.7 F 93 20 97/61 97 08/08/20 03:50 98.2 F 90 24 H 96/55 L 100 08/07/20 23:55 98.7 F 89 24 H 99/62 100 Weight Weight 145 lb 9.6 oz - Labs Result Diagrams: 08/09/20 03:55 08/09/20 03:55 Lab results: Laboratory Results - last 24 hr 08/08/20 04:15: WBC 14.5 H, RBC 2.70 L, Hgb 7.5 L, Hct 23.7 L, MCV 87.8, MCH 27.8, MCHC 31.7 L, RDW 17.8 H, Plt Count 130, MPV 10.6 H, Neutrophils % (Manual) 49, Band Neuts % (Manual) 24 H, Lymphocytes % (Manual) 9 L, Monocytes % (Manual) 4, Metamyelocytes % (Man) 8 H, Myelocytes % 6 H, Nucleated RBCs # (Man) 1 H, Tear Drop Cells SLIGHT = 2-5 cells 08/08/20 04:15: Sodium 137, Potassium 3.6, Chloride 103, Carbon Dioxide 21 L, Anion Gap 17, BUN 9, Creatinine 0.53 L, Estimated GFR (MDRD) Greater than 90, Glucose 90, Calcium 8.0, Magnesium 1.8 08/07/20 15:03: Sodium 138, Potassium 4.1, Chloride 104, Carbon Dioxide 22 L, Anion Gap 16, BUN 8 L, Creatinine 0.53 L, Estimated GFR (MDRD) Greater than 90, Glucose 88, Calcium 8.4 08/07/20 11:45: SARS CoV-2 Rapid Source Nasopharyngeal Swab, SARS-CoV-2 RNA (GEOVANI) Not Detected A/P - Problem (1) Prostate cancer, primary, with metastasis from prostate to other site Current Visit: Yes Code(s): C61 - MALIGNANT NEOPLASM OF PROSTATE Status: Chronic - Plan Plan: Agree with Evy Lamar NP, consult note. Patient has been very noncompliant and so has not been on treatment except sporadically. He received Zoladex on 05/04/2020 and was supposed to come back for another GnRH analog this week but had not fulfilled his FA paperwork required. Will give another dose of Zoladex in the hospital because it is unknown if and when he can get outpatient treatment, or if he will even show up to clinic. He should start Xtandi as directed by Evy Lamar.
[2020-08-08] MEDS: VANCOMYCIN 1.25 GM/250 ML BAG 1.25 GM in Premix Bag 1 BAG IVPB SCH ×2 (09:48→21:36)
--- NOTE | 2020-08-08 15:04 | PDOC.HOSPP ---
- Subjective Encounter Date: 08/08/20 Encounter Time: 15:03 Subjective: Patient seen and evaluated today. He is getting treated for pneumonia likely healthcare acquired. Medical history significant for metastatic prostate cancer. We will continue antibiotic treatment. Cultures remain negative to date. - Objective Vital Signs & Weight: Vital Signs (12 hours) Temp Pulse Resp BP Pulse Ox 08/08/20 11:00 98.8 F 95 18 103/55 L 97 08/08/20 07:43 98.7 F 93 20 97/61 97 08/08/20 03:50 98.2 F 90 24 H 96/55 L 100 Weight Admit Weight 145 lb Weight 145 lb 9.6 oz I&O: 08/07/20 08/08/20 08/09/20 06:59 06:59 06:59 Intake Total 440 Output Total 850 825 Balance -850 -385 Result Diagrams: 08/08/20 04:15 08/08/20 04:15 Radiology Reviewed by me: Yes EKG Reviewed by me: Yes Hospitalist ROS - Review of Systems Constitutional: reports: fever Respiratory: reports: cough, dry, shortness of breath Neurological: reports: weakness - Medication Medications: Active Medications Generic Name Dose Route Start Last Admin Trade Name Freq PRN Reason Stop Dose Admin Hydrocodone Bitart/Acetaminophen 1 tab 08/06/20 03:05 08/06/20 21:28 Hydrocodone/Acetaminophen 5/325 Mg Tablet PO 1 tab Q4H PRN Administration Moderate Pain (4-6) Albuterol/Ipratropium 3 ml 08/06/20 06:54 08/07/20 02:26 Ipratropium/Albuterol Sulfate 3 Ml Neb NEB 3 ml [id number] PRN Administration SOB &/or Wheezing Guaifenesin/Dextromethorphan 15 ml 08/06/20 03:05 08/06/20 08:03 Guaifenesin Dm 100-10/5 Ml Udcup PO 15 ml Q4H PRN Administration Cough Piperacillin Sod/Tazobactam 100 mls @ 200 mls/hr 08/07/20 12:00 08/08/20 12:02 Sod 3.375 gm/ Sodium Chloride IVPB 100 mls Q6HR JOYCE Administration Vancomycin HCl 1.25 gm/ Device 250 mls @ 166.667 mls/hr 08/07/20 09:00 08/08/20 09:48 IVPB 250 mls Q12HR JOYCE Administration Pantoprazole Sodium 40 mg 08/06/20 09:00 08/08/20 08:04 Pantoprazole 40 Mg Tab PO 40 mg DAILY JOYCE Administration Sodium Chloride 10 ml 08/07/20 09:00 08/08/20 08:03 Flush - Normal Saline 10 Ml Syringe IVF 10 ml Q12HR JOYCE Administration Hospitalist Exam Vitals: Vital Signs (12 hours) Temp Pulse Resp BP Pulse Ox 08/08/20 11:00 98.8 F 95 18 103/55 L 97 08/08/20 07:43 98.7 F 93 20 97/61 97 08/08/20 03:50 98.2 F 90 24 H 96/55 L 100 Weight Admit Weight 145 lb Weight 145 lb 9.6 oz General Appearance: NAD, awake alert Eye: PERRL, anicteric sclera ENT: normocephalic atraumatic, no oropharyngeal lesions Neck: supple, symmetric, no JVD, no thyromegaly Heart: RRR, no murmur, no gallops, no rubs, normal peripheral pulses Respiratory: CTAB, no wheezes, no rales, no ronchi, normal chest expansion Gastrointestinal: soft, non-tender, non-distended, normal bowel sounds Neurological: cranial nerve grossly intact, normal sensation to touch Psychiatric: normal affect, normal behavior, A&O x 3 Hosp A/P (1) Hyperkalemia Code(s): E87.5 - HYPERKALEMIA Status: Acute (2) PNA (pneumonia) Code(s): J18.9 - PNEUMONIA, UNSPECIFIED ORGANISM Status: Acute Qualifiers: Pneumonia type: due to other aerobic Gram-negative bacteria Laterality: bilateral Lung location: unspecified part of lung Qualified Code(s): J15.6 - Pneumonia due to other Gram-negative bacteria Plan: I will continue antibiotics. (3) Prostate cancer, primary, with metastasis from prostate to other site Code(s): C61 - MALIGNANT NEOPLASM OF PROSTATE Status: Chronic (4) Bone metastasis Code(s): C79.51 - SECONDARY MALIGNANT NEOPLASM OF BONE Status: Chronic - Plan old records reviewed/req, respiratory therapy, incentive spirometry
[2020-08-08 19:03] LABS: Legionella Urinary Ag Negative (Negative); Strep pneumo Urine Ag NEGATIVE (NEGATIVE)
[2020-08-08 20:57] LABS: Vancomycin, Trough 17.1 ug/mL
[2020-08-09 04:45] LABS: Anion Gap 16 mmol/L (10-20); BUN (Urea Nitrogen) 10 mg/dL (8.4-25.7); Calc. Creatinine Clearance 136 mL/min (70-130); Calcium 8.1 mg/dL (7.8-10.44); Carbon Dioxide 22 mmol/L (23-31); Chloride 104 mmol/L (98-107); Glucose 89 mg/dL (80-115); Magnesium 1.9 mg/dL (1.6-2.6); Potassium 3.5 mmol/L (3.5-5.1); Sodium 138 mmol/L (136-145)
[2020-08-09 05:12] LABS: Band 28 % (5-11); Hemoglobin 7.4 g/dL (14.0-18.0); Lymphocytes 16 % (21-51); MDiff Complete? YES; Mean Corpuscular HGB CONC 30.3 g/dL (32.0-36.0); Mean Corpuscular Volume 85.9 fL (78.0-98.0); Mean Platelet Volume 10.5 fL (7.4-10.4); Metamyelocyte 3 % (0-0); Myelocyte 10 % (0-0); Neutrophil 43 % (42-75); Platelet Count 152 thou/uL (130-400); RBC Distribution Width 18.1 % (11.5-14.5); Red Blood Cell (RBC) Count 2.85 mill/uL (4.70-6.10); White Blood Cell (WBC) Count 12.7 thou/uL (4.8-10.8)
[2020-08-09] MEDS ORDERED: FLU VACC QS2020-21(65YR UP)/PF 240 MCG/0.7 ML SYRINGE IM ONE (05:22)
[2020-08-09] MEDS: Piperacillin/Tazobactam 3.375 GM in Sodium Chloride 0.9% 100 ML IVPB SCH ×3 (06:03→18:55)
[2020-08-09] MEDS ORDERED: Magnesium 2 GM/50 ML 2 GM in Premix Bag 1 BAG IVPB SCH (07:45)
[2020-08-09] MEDS ORDERED: Potassium Chloride 20 MEQ TAB PO SCH (07:45)
[2020-08-09] MEDS: VANCOMYCIN 1.25 GM/250 ML BAG 1.25 GM in Premix Bag 1 BAG IVPB SCH ×2 (11:40→20:58)
--- NOTE | 2020-08-09 15:10 | PDOC.HOSPP ---
- Subjective Encounter Date: 08/09/20 Encounter Time: 15:09 Subjective: This patient was seen and evaluated today. He denies any complaint. He is tolerating his antibiotics well. His nutrition however has been poor. He is being treated for healthcare acquired pneumonia. He does have stage III sacral decubitus ulcers which was present on admission. Wound care is helping to get the dressings changed daily. I have encouraged the nursing staff to turn him more frequently. I called and updated the patient's sister Ms. Vergara at [phone]. - Objective Vital Signs & Weight: Vital Signs (12 hours) Temp Pulse Resp BP Pulse Ox 08/09/20 11:50 98.4 F 88 22 H 102/61 100 08/09/20 08:00 98.0 F 83 24 H 105/65 100 08/09/20 04:02 98.8 F 82 26 H 105/62 100 Weight Admit Weight 145 lb Weight 145 lb 9.6 oz I&O: 08/08/20 08/09/20 08/10/20 06:59 06:59 06:59 Intake Total 440 690 Output Total 825 775 Balance -385 -85 Result Diagrams: 08/09/20 03:55 08/09/20 03:55 Radiology Reviewed by me: Yes EKG Reviewed by me: Yes Hospitalist ROS - Review of Systems Respiratory: reports: shortness of breath, SOB with excertion Cardiovascular: reports: chest pain - Medication Medications: Active Medications Generic Name Dose Route Start Last Admin Trade Name Freq PRN Reason Stop Dose Admin Acetaminophen 650 mg 08/06/20 03:05 08/08/20 15:21 Acetaminophen 325 Mg Tab PO 650 mg Q4H PRN Administration Headache/Fever/Mild Pain (1-3) Hydrocodone Bitart/Acetaminophen 1 tab 08/06/20 03:05 08/06/20 21:28 Hydrocodone/Acetaminophen 5/325 Mg Tablet PO 1 tab Q4H PRN Administration Moderate Pain (4-6) Albuterol/Ipratropium 3 ml 08/06/20 06:54 08/07/20 02:26 Ipratropium/Albuterol Sulfate 3 Ml Neb NEB 3 ml [id number] PRN Administration SOB &/or Wheezing Guaifenesin/Dextromethorphan 15 ml 08/06/20 03:05 08/06/20 08:03 Guaifenesin Dm 100-10/5 Ml Udcup PO 15 ml Q4H PRN Administration Cough Piperacillin Sod/Tazobactam 100 mls @ 200 mls/hr 08/07/20 12:00 08/09/20 13:54 Sod 3.375 gm/ Sodium Chloride IVPB 100 mls Q6HR JOYCE Administration Vancomycin HCl 1.25 gm/ Device 250 mls @ 166.667 mls/hr 08/07/20 09:00 08/09/20 11:40 IVPB 250 mls Q12HR JOYCE Administration Pantoprazole Sodium 40 mg 08/06/20 09:00 08/09/20 10:10 Pantoprazole 40 Mg Tab PO 40 mg DAILY JOYCE Administration Sodium Chloride 10 ml 08/07/20 09:00 08/09/20 10:24 Flush - Normal Saline 10 Ml Syringe IVF 10 ml Q12HR JOYCE Administration Hospitalist Exam Vitals: Vital Signs (12 hours) Temp Pulse Resp BP Pulse Ox 08/09/20 11:50 98.4 F 88 22 H 102/61 100 08/09/20 08:00 98.0 F 83 24 H 105/65 100 08/09/20 04:02 98.8 F 82 26 H 105/62 100 Weight Admit Weight 145 lb Weight 145 lb 9.6 oz General Appearance: NAD, awake alert, ill appearing Eye: PERRL, anicteric sclera ENT: normocephalic atraumatic, no oropharyngeal lesions Neck: supple, symmetric, no JVD, no thyromegaly Heart: RRR, no murmur, no gallops, no rubs, normal peripheral pulses Respiratory: CTAB, no wheezes, no rales, no ronchi, normal chest expansion Gastrointestinal: soft, non-tender, non-distended, normal bowel sounds, no palpa ble masses Neurological: cranial nerve grossly intact, normal sensation to touch Psychiatric: normal affect, normal behavior, A&O x 3 Hosp A/P (1) PNA (pneumonia) Code(s): J18.9 - PNEUMONIA, UNSPECIFIED ORGANISM Status: Acute Qualifiers: Pneumonia type: due to other aerobic Gram-negative bacteria Laterality: b ilateral Lung location: unspecified part of lung Qualified Code(s): J15.6 - Pneumonia due to other Gram-negative bacteria Plan: The patient is tolerating his antibiotics well. We will continue this for now. (2) Hyperkalemia Code(s): E87.5 - HYPERKALEMIA Status: Acute (3) Prostate cancer, primary, with metastasis from prostate to other site Code(s): C61 - MALIGNANT NEOPLASM OF PROSTATE Status: Chronic (4) Bone metastasis Code(s): C79.51 - SECONDARY MALIGNANT NEOPLASM OF BONE Status: Chronic (5) Anemia, chronic disease Code(s): D63.8 - ANEMIA IN OTHER CHRONIC DISEASES CLASSIFIED ELSEWHERE Status: Acute Plan: Likely secondary to metastatic prostate cancer. Will consider blood transfusion if it continues to drop. - Plan old records reviewed/req, PT/OT, respiratory therapy, incentive spirometry
[2020-08-10] MEDS: Piperacillin/Tazobactam 3.375 GM in Sodium Chloride 0.9% 100 ML IVPB SCH ×4 (00:22→17:15)
--- NOTE | 2020-08-10 11:20 | RAD ---
EXAM: CHEST ONE VIEW HISTORY: Shortness of breath. Follow-up evaluation. COMPARISON: 08/05/2020 FINDINGS: There has been interval increase in bilateral pleural effusions with moderate right and small left pl eural effusions and associated volume loss. Interstitial opacities are again seen bilaterally primarily in the midlung zones and each lung base. Extensive sclerotic metastatic lesions are present with persistent pleural-based thickening and masses seen along the chest bilaterally more prominent on the left. Vas calcifications are seen in the thoracic aorta. Again noted is evidence of prior granulomatous disease with calcified mediastinal and right hilar lymph nodes. IMPRESSION: 1. Moderate right and small left pleural effusions with associated volume loss. 2. Persistent increased interstitial opacities bilaterally which could be related to infectious proce ss. 3. Stable diffuse sclerotic osseous metastatic lesions as well as stable pleural-based masses bilater ally larger in size on the left and in the left midlung zone.
[2020-08-10] MEDS ORDERED: VANCOMYCIN 1.25 GM/250 ML BAG ONE (11:22)
[2020-08-10] MEDS ORDERED: Piperacillin/Tazobactam 3.375 GM VIAL ONE ×2 (11:22)
--- NOTE | 2020-08-10 13:02 | PDOC.HOSPP ---
- Subjective Encounter Date: 08/10/20 Encounter Time: 12:58 Subjective: He was sleepy but arouses to voice stimulation. Unable to review data due to EMR system been down all day. Unclear result of his repeat CXR. We will continue antibiotic treatment. We will begin the process of discharge planning. I am hopeful he will be medically optimized for transfer back to his senior care within the next 24 hours. The patient does have a catheter in place that I am not sure how long he had this in place. - Objective Vital Signs & Weight: Vital Signs (12 hours) Temp Pulse Pulse Pulse Resp BP BP 08/10/20 10:32 79 88 106/62 116/70 08/10/20 08:13 98.0 F 93 20 BP Pulse Ox Pulse Ox Pulse Ox 08/10/20 10:32 100 99 08/10/20 08:13 130/74 100 Weight Admit Weight 145 lb Weight 145 lb 9.6 oz I&O: 08/09/20 08/10/20 08/11/20 06:59 06:59 06:59 Intake Total 690 463 Output Total 775 900 Balance -85 463 -900 Result Diagrams: 08/09/20 03:55 08/09/20 03:55 Radiology Reviewed by me: Yes EKG Reviewed by me: Yes Hospitalist ROS - Review of Systems Constitutional: reports: chills, weakness, malaise Cardiovascular: reports: chest pain Gastrointestinal: reports: nausea Skin: reports: rash Neurological: reports: weakness - Medication Medications: Active Medications Generic Name Dose Route Start Last Admin Trade Name Freq PRN Reason Stop Dose Admin Acetaminophen 650 mg 08/06/20 03:05 08/08/20 15:21 Acetaminophen 325 Mg Tab PO 650 mg Q4H PRN Administration Headache/Fever/Mild Pain (1-3) Hydrocodone Bitart/Acetaminophen 1 tab 08/06/20 03:05 08/06/20 21:28 Hydrocodone/Acetaminophen 5/325 Mg Tablet PO 1 tab Q4H PRN Administration Moderate Pain (4-6) Albuterol/Ipratropium 3 ml 08/06/20 06:54 08/07/20 02:26 Ipratropium/Albuterol Sulfate 3 Ml Neb NEB 3 ml [id number] PRN Administration SOB &/or Wheezing Guaifenesin/Dextromethorphan 15 ml 08/06/20 03:05 08/06/20 08:03 Guaifenesin Dm 100-10/5 Ml Udcup PO 15 ml Q4H PRN Administration Cough Piperacillin Sod/Tazobactam 100 mls @ 200 mls/hr 08/07/20 12:00 08/10/20 00:22 Sod 3.375 gm/ Sodium Chloride IVPB 100 mls Q6HR JOYCE Administration Vancomycin HCl 1.25 gm/ Device 250 mls @ 166.667 mls/hr 08/07/20 09:00 08/09/20 20:58 IVPB 250 mls Q12HR JYOCE Administration Pantoprazole Sodium 40 mg 08/06/20 09:00 08/09/20 10:10 Pantoprazole 40 Mg Tab PO 40 mg DAILY JOYCE Administration Sodium Chloride 10 ml 08/07/20 09:00 08/09/20 20:59 Flush - Normal Saline 10 Ml Syringe IVF 10 ml Q12HR JOYCE Administration Hospitalist Exam Vitals: Vital Signs (12 hours) Temp Pulse Pulse Pulse Resp BP BP 08/10/20 10:32 79 88 106/62 116/70 08/10/20 08:13 98.0 F 93 20 BP Pulse Ox Pulse Ox Pulse Ox 08/10/20 10:32 100 99 08/10/20 08:13 130/74 100 Weight Admit Weight 145 lb Weight 145 lb 9.6 oz General Appearance: NAD, awake alert, ill appearing Eye: PERRL, anicteric sclera ENT: normocephalic atraumatic, no oropharyngeal lesions, moist mucosa Neck: supple, symmetric, no JVD, no thyromegaly, no lymphadenopathy Heart: RRR, no murmur, no gallops, no rubs Respiratory: CTAB, no wheezes, no rales, no ronchi Gastrointestinal: soft, non-tender, non-distended, normal bowel sounds Skin - other findings: STAGE 3 SACRAL DECUBITUS Neurological: cranial nerve grossly intact Psychiatric: normal affect, normal behavior, A&O x 3 Hosp A/P (1) PNA (pneumonia) Code(s): J18.9 - PNEUMONIA, UNSPECIFIED ORGANISM Status: Acute Qualifiers: Pneumonia type: due to other aerobic Gram-negative bacteria Laterality: bi lateral Lung location: unspecified part of lung Qualified Code(s): J15.6 - Pneumonia due to other Gram-negative bacteria Plan: Will continue antibiotics for now. Cultures negative to date. (2) Hyperkalemia Code(s): E87.5 - HYPERKALEMIA Status: Resolved Plan: This is resolved. (3) Prostate cancer, primary, with metastasis from prostate to other site Code(s): C61 - MALIGNANT NEOPLASM OF PROSTATE Status: Chronic (4) Bone metastasis Code(s): C79.51 - SECONDARY MALIGNANT NEOPLASM OF BONE Status: Chronic (5) Anemia, chronic disease Code(s): D63.8 - ANEMIA IN OTHER CHRONIC DISEASES CLASSIFIED ELSEWHERE Status: Acute - Plan old records reviewed/req, plan discussed w/ family, siddiqi catheter, continue antibiotics, PT/OT, respiratory therapy, incentive spirometry, out of bed/ambulate
[2020-08-10 15:03] LABS: Anion Gap 16 mmol/L (10-20); BUN (Urea Nitrogen) 8 mg/dL (8.4-25.7); Calc. Creatinine Clearance 136 mL/min (70-130); Calcium 8.4 mg/dL (7.8-10.44); Carbon Dioxide 20 mmol/L (23-31); Chloride 107 mmol/L (98-107); Glucose 86 mg/dL (80-115); Potassium 3.9 mmol/L (3.5-5.1); Sodium 139 mmol/L (136-145)
[2020-08-10 16:56] LABS: Vancomycin, Trough 21.8 ug/mL
[2020-08-10 17:33] LABS: Hemoglobin 8.4 g/dL (14.0-18.0); Mean Corpuscular HGB CONC 30.1 g/dL (32.0-36.0); Mean Corpuscular Volume 86.3 fL (78.0-98.0); Mean Platelet Volume 10.8 fL (7.4-10.4); Platelet Count 152 thou/uL (130-400); RBC Distribution Width 18.3 % (11.5-14.5); Red Blood Cell (RBC) Count 3.23 mill/uL (4.70-6.10); White Blood Cell (WBC) Count 13.6 thou/uL (4.8-10.8)
[2020-08-10] MEDS: VANCOMYCIN 1.25 GM/250 ML BAG 1.25 GM in Premix Bag 1 BAG IVPB SCH ×3 (17:55→21:54)
[2020-08-10 20:23] LABS: Band 34 % (5-11); Helmet Cells SLIGHT = 2-5 cells (100X) (0-1/hpf); Hypochromia SLIGHT = 6-15 cells (100X) (0-5/hpf); Lymphocytes 10 % (21-51); MDiff Complete? YES; Metamyelocyte 2 % (0-0); Monocytes 9 % (0-10); Myelocyte 5 % (0-0); Neutrophil 29 % (42-75); Nucleated RBC 3 % (0); Platelet Morphology Comment Appears Adequate; Polychromasia MODERATE = 3-4 cells (100X) (0-2/hpf); Reactive Lymphocytes 10 % (0-10); Schistocytes SLIGHT = 2-5 cells (100X) (0-1/hpf); Tear Drops MODERATE= 6-15 cells (100X) (0-1/hpf)
[2020-08-10] MEDS: Guaifenesin DM 100-10/5 ML UDCUP PO PRN (23:58)
[2020-08-11] MEDS: Piperacillin/Tazobactam 3.375 GM in Sodium Chloride 0.9% 100 ML IVPB SCH ×5 (00:53→23:34)
[2020-08-11 04:45] LABS: Anion Gap 16 mmol/L (10-20); BUN (Urea Nitrogen) 9 mg/dL (8.4-25.7); Calc. Creatinine Clearance 126 mL/min (70-130); Calcium 8.4 mg/dL (7.8-10.44); Carbon Dioxide 20 mmol/L (23-31); Chloride 109 mmol/L (98-107); Glucose 109 mg/dL (80-115); Potassium 3.9 mmol/L (3.5-5.1); Sodium 141 mmol/L (136-145)
[2020-08-11 05:34] LABS: Band 24 % (5-11); Eosinophils 1 % (0-10); Hemoglobin 8.3 g/dL (14.0-18.0); Lymphocytes 20 % (21-51); MDiff Complete? YES; Mean Corpuscular HGB CONC 30.7 g/dL (32.0-36.0); Mean Corpuscular Hemoglobin 26.5 pg (27.0-31.0); Mean Corpuscular Volume 86.5 fL (78.0-98.0); Mean Platelet Volume 10.6 fL (7.4-10.4); Monocytes 8 % (0-10); Neutrophil 41 % (42-75); Nucleated RBC 1 % (0); Platelet Count 149 thou/uL (130-400); RBC Distribution Width 18.5 % (11.5-14.5); Reactive Lymphocytes 6 % (0-10); Red Blood Cell (RBC) Count 3.12 mill/uL (4.70-6.10); White Blood Cell (WBC) Count 11.2 thou/uL (4.8-10.8)
--- NOTE | 2020-08-11 08:08 | RAD ---
EXAM: Single view of the chest HISTORY: Shortness of breath COMPARISON: 08/10/2020 FINDINGS: Single view of the chest shows a normal sized cardiomediastinal silhouette. There are scatt ered multifocal infiltrates in the lungs. Bilateral pleural effusions may also be present. Diffuse sclerosis of the bones is seen concerning for osseous metastases. IMPRESSION: Stable exam
[2020-08-11] MEDS ORDERED: Furosemide 40 MG/4 ML VIAL SLOW IVP SCH (12:45)
--- NOTE | 2020-08-11 14:24 | PDOC.HOSPP ---
- Subjective Encounter Date: 08/11/20 Encounter Time: 14:19 Subjective: This patient was seen and evaluated. He was admitted to the hospital for multifocal pneumonia non-Covid. He is being treated as a healthcare acquired pneumonia. There is also a concern for aspiration. The patient appeared more dyspneic today when I visited with him. His cough is very weak. I have asked speech therapist to reevaluate and make further recommendations regarding his diet. We will continue antibiotics. - Objective Vital Signs & Weight: Vital Signs (12 hours) Temp Pulse Resp BP Pulse Ox 08/11/20 11:09 98 F 91 24 H 114/72 100 08/11/20 07:33 98.4 F 80 20 113/74 100 08/11/20 04:00 96.3 F L 90 19 109/70 95 Weight Admit Weight 145 lb Weight 145 lb 9.6 oz I&O: 08/10/20 08/11/20 08/12/20 06:59 06:59 06:59 Intake Total 463 830 100 Output Total 1100 850 Balance 746 -022 -720 Result Diagrams: 08/11/20 04:03 08/11/20 04:03 Radiology Reviewed by me: Yes EKG Reviewed by me: Yes Hospitalist ROS - Review of Systems Constitutional: reports: fever, chills Cardiovascular: reports: chest pain, palpitations - Medication Medications: Active Medications Generic Name Dose Route Start Last Admin Trade Name Freq PRN Reason Stop Dose Admin Acetaminophen 650 mg 08/06/20 03:05 08/08/20 15:21 Acetaminophen 325 Mg Tab PO 650 mg Q4H PRN Administration Headache/Fever/Mild Pain (1-3) Hydrocodone Bitart/Acetaminophen 1 tab 08/06/20 03:05 08/06/20 21:28 Hydrocodone/Acetaminophen 5/325 Mg Tablet PO 1 tab Q4H PRN Administration Moderate Pain (4-6) Albuterol/Ipratropium 3 ml 08/06/20 06:54 08/07/20 02:26 Ipratropium/Albuterol Sulfate 3 Ml Neb NEB 3 ml [id number] PRN Administration SOB &/or Wheezing Furosemide 40 mg 08/11/20 12:45 08/11/20 13:41 Furosemide 40 Mg/4 Ml Vial SLOW IVP 08/11/20 14:45 40 mg NOW JOYCE Administration Guaifenesin/Dextromethorphan 15 ml 08/06/20 03:05 08/10/20 23:58 Guaifenesin Dm 100-10/5 Ml Udcup PO 15 ml Q4H PRN Administration Cough Piperacillin Sod/Tazobactam 100 mls @ 200 mls/hr 08/07/20 12:00 08/11/20 11:39 Sod 3.375 gm/ Sodium Chloride IVPB 100 mls Q6HR JOYCE Administration Vancomycin HCl 1.25 gm/ Device 250 mls @ 166.667 mls/hr 08/07/20 09:00 08/10/20 21:54 IVPB 250 mls Q12HR JOYCE Administration Pantoprazole Sodium 40 mg 08/06/20 09:00 08/11/20 07:33 Pantoprazole 40 Mg Tab PO 40 mg DAILY JOYCE Administration Sodium Chloride 10 ml 08/07/20 09:00 08/11/20 07:33 Flush - Normal Saline 10 Ml Syringe IVF 10 ml Q12HR JOYCE Administration Hospitalist Exam Vitals: Vital Signs (12 hours) Temp Pulse Resp BP Pulse Ox 08/11/20 11:09 98 F 91 24 H 114/72 100 08/11/20 07:33 98.4 F 80 20 113/74 100 08/11/20 04:00 96.3 F L 90 19 109/70 95 Weight Admit Weight 145 lb Weight 145 lb 9.6 oz General Appearance: NAD, awake alert Eye: PERRL, anicteric sclera ENT: normocephalic atraumatic, no oropharyngeal lesions Neck: supple, symmetric, no JVD, no thyromegaly Heart: RRR, no murmur, no gallops Respiratory: CTAB, no wheezes, no rales, rales Gastrointestinal: soft, non-tender Neurological: cranial nerve grossly intact Psychiatric: normal affect, normal behavior Hosp A/P (1) PNA (pneumonia) Code(s): J18.9 - PNEUMONIA, UNSPECIFIED ORGANISM Status: Acute Qualifiers: Pneumonia type: due to other aerobic Gram-negative bacteria Laterality: bilateral Lung location: unspecified part of lung Qualified Code(s): J15.6 - Pneumonia due to other Gram-negative bacteria (2) Hyperkalemia Code(s): E87.5 - HYPERKALEMIA Status: Resolved (3) Prostate cancer, primary, with metastasis from prostate to other site Code(s): C61 - MALIGNANT NEOPLASM OF PROSTATE Status: Chronic (4) Bone metastasis Code(s): C79.51 - SECONDARY MALIGNANT NEOPLASM OF BONE Status: Chronic (5) Anemia, chronic disease Code(s): D63.8 - ANEMIA IN OTHER CHRONIC DISEASES CLASSIFIED ELSEWHERE Status: Acute - Plan old records reviewed/req, plan discussed w/ family, continue antibiotics, PT/OT, respiratory therapy, incentive spirometry #1. Acute hypoxic respiratory failure Likely secondary to multifocal pneumonia. He is being treated as a healthcare acquired pneumonia. I will continue antibiotics. His cultures remains negative to date. 2. Multifocal pneumonia. He is being treated as a healthcare acquired pneumonia. There is also some concern for aspiration. I will get speech therapist to help with further evaluation. 3. Metastatic prostate cancer. 4. Stage III sacral decubitus ulcers This was present on admission. Continue dressing changes.
[2020-08-11 20:39] LABS: Vancomycin, Trough 20.2 ug/mL
[2020-08-11] MEDS: VANCOMYCIN 1.25 GM/250 ML BAG 1.25 GM in Premix Bag 1 BAG IVPB SCH (21:09)
[2020-08-12] MEDS: HYDROcodone/Acetaminophen 5/325 mg Tablet PO PRN (00:51)
[2020-08-12 05:50] LABS: Hemoglobin 8.2 g/dL (14.0-18.0); Mean Corpuscular HGB CONC 30.7 g/dL (32.0-36.0); Mean Corpuscular Hemoglobin 26.8 pg (27.0-31.0); Mean Corpuscular Volume 87.3 fL (78.0-98.0); Mean Platelet Volume 10.1 fL (7.4-10.4); Platelet Count 159 thou/uL (130-400); RBC Distribution Width 18.5 % (11.5-14.5); Red Blood Cell (RBC) Count 3.05 mill/uL (4.70-6.10); White Blood Cell (WBC) Count 10.1 thou/uL (4.8-10.8)
[2020-08-12] MEDS: Piperacillin/Tazobactam 3.375 GM in Sodium Chloride 0.9% 100 ML IVPB SCH ×3 (06:02→17:52)
[2020-08-12 06:08] LABS: Anion Gap 16 mmol/L (10-20); BUN (Urea Nitrogen) 9 mg/dL (8.4-25.7); Calc. Creatinine Clearance 133 mL/min (70-130); Calcium 8.3 mg/dL (7.8-10.44); Carbon Dioxide 22 mmol/L (23-31); Chloride 108 mmol/L (98-107); Glucose 78 mg/dL (80-115); Magnesium 1.5 mg/dL (1.6-2.6); Potassium 3.6 mmol/L (3.5-5.1); Sodium 142 mmol/L (136-145)
[2020-08-12 06:13] LABS: Anisocytosis SLIGHT = 6-15 cells (100X) (0-5/hpf); Band 26 % (5-11); Eosinophils 1 % (0-10); Lymphocytes 22 % (21-51); MDiff Complete? YES; Metamyelocyte 1 % (0-0); Microcytosis SLIGHT = 6-15 cells (100X) (0-5/hpf); Monocytes 5 % (0-10); Myelocyte 1 % (0-0); Neutrophil 44 % (42-75); Tear Drops SLIGHT = 2-5 cells (100X) (0-1/hpf)
[2020-08-12] MEDS: Vancomycin 1 GM in Premix Bag 1 BAG IVPB SCH ×2 (11:46→23:46)
--- NOTE | 2020-08-12 11:48 | RAD ---
BARIUM SWALLOW IN THE PRESENCE OF SPEECH PATHOLOGIST: HISTORY: Speaking difficulty. Dysphagia. EXPOSURE: 0.971 uGy*^cm2. 1.9 minutes. FINDINGS: In the presence of speech pathologist, the patient was administered thin liquid, nectar thick, puddin g, and mechanical soft consistencies. There is penetration with thin liquid consistencies. IMPRESSION: Please refer to speech pathology report for feeding recommendations. POS: PPP
--- NOTE | 2020-08-12 15:18 | EKG ---
Test Reason : Blood Pressure : / mmHG Vent. Rate : 090 BPM Atrial Rate : 090 BPM P-R Int : 140 ms QRS Dur : 076 ms QT Int : 372 ms P-R-T Axes : 057 -50 049 degrees QTc Int : 455 ms Normal sinus rhythm Low voltage QRS Left anterior fascicular block Septal infarct (cited on or before 30-APR-2020) Abnormal ECG When compared with ECG of 20-JUL-2020 13:40, Questionable change in initial forces of Septal leads Confirmed by MARIA ALEJANDRA AMIN (2) on 08/12/2020 3:18:08 PM Referred By: PO Confirmed By:MARIA ALEJANDRA AMIN
--- NOTE | 2020-08-12 16:04 | PDOC.HOSPP ---
- Subjective Encounter Date: 08/12/20 Encounter Time: 16:03 Subjective: The patient went for MBS today. There is some concern for ongoing aspiration. Will speak with ST about results. Continue antibiotcs for now. AM labs and CXR - Objective Vital Signs & Weight: Vital Signs (12 hours) Temp Pulse Resp BP BP Pulse Ox 08/12/20 15:51 97.8 F 84 18 115/69 96 08/12/20 13:18 116/67 08/12/20 11:32 98.0 F 80 19 135/76 98 08/12/20 08:00 98.2 F 86 17 138/84 96 Weight Admit Weight 145 lb Weight 145 lb 9.6 oz I&O: 08/11/20 08/12/20 08/13/20 06:59 06:59 06:59 Intake Total 830 920 Output Total 1100 1950 Balance -270 -1030 Result Diagrams: 08/12/20 05:04 08/12/20 05:04 Radiology Reviewed by me: Yes EKG Reviewed by me: Yes Hospitalist ROS - Review of Systems Respiratory: reports: shortness of breath Gastrointestinal: reports: nausea - Medication Medications: Active Medications Generic Name Dose Route Start Last Admin Trade Name Freq PRN Reason Stop Dose Admin Acetaminophen 650 mg 08/06/20 03:05 08/08/20 15:21 Acetaminophen 325 Mg Tab PO 650 mg Q4H PRN Administration Headache/Fever/Mild Pain (1-3) Hydrocodone Bitart/Acetaminophen 1 tab 08/06/20 03:05 08/12/20 00:51 Hydrocodone/Acetaminophen 5/325 Mg Tablet PO 1 tab Q4H PRN Administration Moderate Pain (4-6) Albuterol/Ipratropium 3 ml 08/06/20 06:54 08/07/20 02:26 Ipratropium/Albuterol Sulfate 3 Ml Neb NEB 3 ml [id number] PRN Administration SOB &/or Wheezing Guaifenesin/Dextromethorphan 15 ml 08/06/20 03:05 08/10/20 23:58 Guaifenesin Dm 100-10/5 Ml Udcup PO 15 ml Q4H PRN Administration Cough Piperacillin Sod/Tazobactam 100 mls @ 200 mls/hr 08/07/20 12:00 08/12/20 13:09 Sod 3.375 gm/ Sodium Chloride IVPB 100 mls Q6HR JOYCE Administration Vancomycin HCl 1 gm/ Device 200 mls @ 200 mls/hr 08/12/20 11:00 08/12/20 11:46 IVPB 200 mls 1100,2300 JOYCE Administration Pantoprazole Sodium 40 mg 08/06/20 09:00 08/12/20 11:47 Pantoprazole 40 Mg Tab PO 40 mg DAILY JOYCE Administration Sodium Chloride 10 ml 08/07/20 09:00 08/12/20 08:49 Flush - Normal Saline 10 Ml Syringe IVF 10 ml Q12HR JOYCE Administration Hospitalist Exam Vitals: Vital Signs (12 hours) Temp Pulse Resp BP BP Pulse Ox 08/12/20 15:51 97.8 F 84 18 115/69 96 08/12/20 13:18 116/67 08/12/20 11:32 98.0 F 80 19 135/76 98 08/12/20 08:00 98.2 F 86 17 138/84 96 Weight Admit Weight 145 lb Weight 145 lb 9.6 oz General Appearance: NAD, awake alert, ill appearing Eye: PERRL, anicteric sclera ENT: normocephalic atraumatic, no oropharyngeal lesions Neck: supple, symmetric, no JVD, no thyromegaly Heart: RRR, no murmur, no gallops, no rubs, normal peripheral pulses Respiratory: CTAB, no wheezes, no rales, no ronchi, normal chest expansion Gastrointestinal: soft, non-tender, non-distended, normal bowel sounds Neurological: cranial nerve grossly intact, normal sensation to touch Musculoskeletal: normal tone Psychiatric: normal affect, normal behavior, A&O x 3, oriented to person Hosp A/P (1) PNA (pneumonia) Code(s): J18.9 - PNEUMONIA, UNSPECIFIED ORGANISM Status: Acute Qualifiers: Pneumonia type: due to other aerobic Gram-negative bacteria Laterality: bilateral Lung location: unspecified part of lung Qualified Code(s): J15.6 - Pneumonia due to other Gram-negative bacteria (2) Hyperkalemia Code(s): E87.5 - HYPERKALEMIA Status: Resolved (3) Prostate cancer, primary, with metastasis from prostate to other site Code(s): C61 - MALIGNANT NEOPLASM OF PROSTATE Status: Chronic (4) Bone metastasis Code(s): C79.51 - SECONDARY MALIGNANT NEOPLASM OF BONE Status: Chronic (5) Anemia, chronic disease Code(s): D63.8 - ANEMIA IN OTHER CHRONIC DISEASES CLASSIFIED ELSEWHERE Status: Acute - Plan #1. Acute hypoxic respiratory failure Likely secondary to multifocal pneumonia. He is being treated as a healthcare acquired pneumonia. I will continue antibiotics. His cultures remains negative to date. 2. Multifocal pneumonia. He is being treated as a healthcare acquired pneumonia. There is also some concern for aspiration. I will get speech therapist to help with further evaluation. 3. Metastatic prostate cancer. 4. Stage III sacral decubitus ulcers This was present on admission. Continue dressing changes. 08/12/20 He had an MBS today. Will follow up on results. Continue antibiotics.
[2020-08-12] MEDS: Guaifenesin DM 100-10/5 ML UDCUP PO PRN (21:12)
[2020-08-12] MEDS ORDERED: Melatonin 3 MG TAB PO PRN (23:19)
[2020-08-13] MEDS: Piperacillin/Tazobactam 3.375 GM in Sodium Chloride 0.9% 100 ML IVPB SCH ×4 (01:35→18:31)
[2020-08-13] MEDS: Guaifenesin DM 100-10/5 ML UDCUP PO PRN (02:14)
[2020-08-13 05:31] LABS: Anion Gap 16 mmol/L (10-20); BUN (Urea Nitrogen) 9 mg/dL (8.4-25.7); Calc. Creatinine Clearance 133 mL/min (70-130); Calcium 8.3 mg/dL (7.8-10.44); Carbon Dioxide 22 mmol/L (23-31); Chloride 108 mmol/L (98-107); Glucose 99 mg/dL (80-115); Potassium 3.4 mmol/L (3.5-5.1); Sodium 143 mmol/L (136-145)
[2020-08-13 05:59] LABS: Band 23 % (5-11); Eosinophils 2 % (0-10); Hemoglobin 8.1 g/dL (14.0-18.0); Lymphocytes 22 % (21-51); MDiff Complete? YES; Mean Corpuscular HGB CONC 31.2 g/dL (32.0-36.0); Mean Corpuscular Hemoglobin 26.7 pg (27.0-31.0); Mean Corpuscular Volume 85.6 fL (78.0-98.0); Mean Platelet Volume 10.8 fL (7.4-10.4); Monocytes 13 % (0-10); Myelocyte 3 % (0-0); Neutrophil 37 % (42-75); Nucleated RBC 2 % (0); Platelet Count 147 thou/uL (130-400); Red Blood Cell (RBC) Count 3.02 mill/uL (4.70-6.10); White Blood Cell (WBC) Count 9.3 thou/uL (4.8-10.8)
[2020-08-13 10:18] LABS: Vancomycin, Trough 20.2 ug/mL
[2020-08-13] MEDS: Vancomycin 1 GM in Premix Bag 1 BAG IVPB SCH ×2 (11:37→22:46)
--- NOTE | 2020-08-13 14:35 | PDOC.HOSPP ---
- Subjective Encounter Date: 08/13/20 Encounter Time: 14:34 Subjective: Patient had a modified barium swallow yesterday. He was found to have aspiration especially with thin liquids. He has been on IV antibiotics since admission with Zosyn and vancomycin. His white count has since corrected. We will plan to discharge back to his facility on oral antibiotics to complete his treatment course. I believe in the next 24 hours he will be medically optimized. - Objective Vital Signs & Weight: Vital Signs (12 hours) Temp Pulse Resp BP Pulse Ox 08/13/20 10:08 97.9 F 77 16 103/55 L 08/13/20 07:59 97.8 F 89 18 128/74 96 08/13/20 04:10 98.6 F 80 23 H 120/64 96 Weight Admit Weight 145 lb Weight 145 lb 9.6 oz I&O: 08/12/20 08/13/20 08/14/20 06:59 06:59 06:59 Intake Total 920 Output Total 1950 1275 Balance -1030 -1271 Result Diagrams: 08/13/20 04:57 08/13/20 04:57 Radiology Reviewed by me: Yes EKG Reviewed by me: Yes Hospitalist ROS - Review of Systems Neurological: reports: weakness - Medication Medications: Active Medications Generic Name Dose Route Start Last Admin Trade Name Freq PRN Reason Stop Dose Admin Acetaminophen 650 mg 08/06/20 03:05 08/08/20 15:21 Acetaminophen 325 Mg Tab PO 650 mg Q4H PRN Administration Headache/Fever/Mild Pain (1-3) Hydrocodone Bitart/Acetaminophen 1 tab 08/06/20 03:05 08/12/20 00:51 Hydrocodone/Acetaminophen 5/325 Mg Tablet PO 1 tab Q4H PRN Administration Moderate Pain (4-6) Albuterol/Ipratropium 3 ml 08/06/20 06:54 08/07/20 02:26 Ipratropium/Albuterol Sulfate 3 Ml Neb NEB 3 ml [id number] PRN Administration SOB &/or Wheezing Guaifenesin/Dextromethorphan 15 ml 08/06/20 03:05 08/13/20 02:14 Guaifenesin Dm 100-10/5 Ml Udcup PO 15 ml Q4H PRN Administration Cough Piperacillin Sod/Tazobactam 100 mls @ 200 mls/hr 08/07/20 12:00 08/13/20 13:05 Sod 3.375 gm/ Sodium Chloride IVPB 100 mls Q6HR JOYCE Administration Vancomycin HCl 1 gm/ Device 200 mls @ 200 mls/hr 08/12/20 11:00 08/13/20 11:37 IVPB 200 mls 1100,2300 JOYCE Administration Melatonin 3 mg 08/12/20 23:19 08/12/20 23:46 Melatonin 3 Mg Tab PO 3 mg HS PRN Administration Insomnia Pantoprazole Sodium 40 mg 08/06/20 09:00 08/13/20 08:06 Pantoprazole 40 Mg Tab PO 40 mg DAILY JOYCE Administration Sodium Chloride 10 ml 08/07/20 09:00 08/13/20 10:36 Flush - Normal Saline 10 Ml Syringe IVF Not Given Q12HR [facility] Hospitalist Exam Vitals: Vital Signs (12 hours) Temp Pulse Resp BP Pulse Ox 08/13/20 10:08 97.9 F 77 16 103/55 L 08/13/20 07:59 97.8 F 89 18 128/74 96 08/13/20 04:10 98.6 F 80 23 H 120/64 96 Weight Admit Weight 145 lb Weight 145 lb 9.6 oz General Appearance: NAD, awake alert Eye: PERRL, anicteric sclera ENT: normocephalic atraumatic, no oropharyngeal lesions Neck: supple, symmetric, no JVD, no thyromegaly Heart: RRR, no murmur Respiratory: CTAB, no wheezes, no rales, no ronchi Gastrointestinal: soft, non-tender, non-distended, no palpable masses, no hepatomegaly Neurological: cranial nerve grossly intact, normal sensation to touch Musculoskeletal: normal tone, normal strength, no muscle wasting Psychiatric: normal affect, normal behavior, A&O x 3 Hosp A/P (1) PNA (pneumonia) Code(s): J18.9 - PNEUMONIA, UNSPECIFIED ORGANISM Status: Acute Qualifiers: Pneumonia type: due to other aerobic Gram-negative bacteria Laterality: bilateral Lung location: unspecified part of lung Qualified Code(s): J15.6 - Pneumonia due to other Gram-negative bacteria (2) Hyperkalemia Code(s): E87.5 - HYPERKALEMIA Status: Resolved (3) Prostate cancer, primary, with metastasis from prostate to other site Code(s): C61 - MALIGNANT NEOPLASM OF PROSTATE Status: Chronic (4) Bone metastasis Code(s): C79.51 - SECONDARY MALIGNANT NEOPLASM OF BONE Status: Chronic (5) Anemia, chronic disease Code(s): D63.8 - ANEMIA IN OTHER CHRONIC DISEASES CLASSIFIED ELSEWHERE Status: Acute - Plan old records reviewed/req, respiratory therapy, incentive spirometry #1. Acute hypoxic respiratory failure Likely secondary to multifocal pneumonia. He is being treated as a healthcare acquired pneumonia. I will continue antibiotics. His cultures remains negative to date. 2. Multifocal pneumonia. He is being treated as a healthcare acquired pneumonia. There is also some concern for aspiration. I will get speech therapist to help with further evaluation. 3. Metastatic prostate cancer. 4. Stage III sacral decubitus ulcers This was present on admission. Continue dressing changes. 08/12/20 He had an MBS today. Will follow up on results. Continue antibiotics.
[2020-08-14] MEDS: Piperacillin/Tazobactam 3.375 GM in Sodium Chloride 0.9% 100 ML IVPB SCH ×4 (00:25→17:25)
[2020-08-14] MEDS: Guaifenesin DM 100-10/5 ML UDCUP PO PRN (00:51)
[2020-08-14] MEDS: Vancomycin 1 GM in Premix Bag 1 BAG IVPB SCH ×2 (12:16→22:48)
[2020-08-14] MEDS ORDERED: Furosemide 100 MG/10 ML VIAL SLOW IVP SCH (12:45)
--- NOTE | 2020-08-14 13:09 | RAD ---
SINGLE VIEW CHEST: Date: 08/14/2020 COMPARISON: 08/11/2020. HISTORY: Shortness of breath. FINDINGS: Single view of the chest shows a normal sized cardiomediastinal silhouette. There are scattered multi ple focal infiltrates in the lungs. Bilateral pleural effusions are seen. Stable sclerotic lesions ar e seen in the bones. IMPRESSION: Bilateral infiltrates and pleural effusions. These are relatively stable compared to the prior exam. POS: EAA
--- NOTE | 2020-08-14 15:30 | PDOC.HOSPP ---
- Subjective Encounter Date: 08/14/20 Encounter Time: 15:27 Subjective: Nursing staff were concerned this morning about the patient's respiratory rate. I arrived at the bedside and the patient was sleepy but arouses to my voice. He was found to have moderate aspiration on the modified barium swallow test done. Speech therapist made some recommendations regarding dietary changes which have already been made. However the patient appears to have significant weak cough. I suspect he may still be aspirating. This was confirmed on a chest x-ray that I did at the bedside earlier today. We discussed plan for possible alternate source of feeding in the future but the patient is not agreeable at this time. I am going to continue antibiotics as he seems to be responding to. - Objective Vital Signs & Weight: Vital Signs (12 hours) Temp Pulse Resp BP BP Pulse Ox 08/14/20 12:00 98.6 F 74 24 H 127/70 97 08/14/20 08:00 98.5 F 85 20 142/72 H 96 08/14/20 05:00 98.1 F 87 22 H 134/78 96 Weight Admit Weight 145 lb Weight 145 lb 9.6 oz I&O: 08/13/20 08/14/20 08/15/20 06:59 06:59 06:59 Intake Total 820 Output Total 1275 180 Balance -1275 640 Result Diagrams: 08/13/20 04:57 08/13/20 04:57 Radiology Reviewed by me: Yes EKG Reviewed by me: Yes Hospitalist ROS - Review of Systems Respiratory: reports: cough, dry - Medication Medications: Active Medications Generic Name Dose Route Start Last Admin Trade Name Freq PRN Reason Stop Dose Admin Acetaminophen 650 mg 08/06/20 03:05 08/08/20 15:21 Acetaminophen 325 Mg Tab PO 650 mg Q4H PRN Administration Headache/Fever/Mild Pain (1-3) Hydrocodone Bitart/Acetaminophen 1 tab 08/06/20 03:05 08/12/20 00:51 Hydrocodone/Acetaminophen 5/325 Mg Tablet PO 1 tab Q4H PRN Administration Moderate Pain (4-6) Albuterol/Ipratropium 3 ml 08/06/20 06:54 08/07/20 02:26 Ipratropium/Albuterol Sulfate 3 Ml Neb NEB 3 ml [id number] PRN Administration SOB &/or Wheezing Guaifenesin/Dextromethorphan 15 ml 08/06/20 03:05 08/14/20 00:51 Guaifenesin Dm 100-10/5 Ml Udcup PO 15 ml Q4H PRN Administration Cough Piperacillin Sod/Tazobactam 100 mls @ 200 mls/hr 08/07/20 12:00 08/14/20 05:26 Sod 3.375 gm/ Sodium Chloride IVPB 100 mls Q6HR JOYCE Administration Vancomycin HCl 1 gm/ Device 200 mls @ 200 mls/hr 08/12/20 11:00 08/14/20 12:16 IVPB 200 mls 1100,2300 JOYCE Administration Melatonin 3 mg 08/12/20 23:19 08/12/20 23:46 Melatonin 3 Mg Tab PO 3 mg HS PRN Administration Insomnia Pantoprazole Sodium 40 mg 08/06/20 09:00 08/13/20 08:06 Pantoprazole 40 Mg Tab PO 40 mg DAILY JOYCE Administration Sodium Chloride 10 ml 08/07/20 09:00 08/14/20 09:49 Flush - Normal Saline 10 Ml Syringe IVF 10 ml Q12HR JOYCE Administration Hospitalist Exam Vitals: Vital Signs (12 hours) Temp Pulse Resp BP BP Pulse Ox 08/14/20 12:00 98.6 F 74 24 H 127/70 97 08/14/20 08:00 98.5 F 85 20 142/72 H 96 08/14/20 05:00 98.1 F 87 22 H 134/78 96 Weight Admit Weight 145 lb Weight 145 lb 9.6 oz General Appearance: NAD, awake alert Eye: PERRL, anicteric sclera ENT: normocephalic atraumatic, no oropharyngeal lesions Neck: supple, symmetric, no JVD, no thyromegaly Heart: RRR, no murmur, no gallops, no rubs Respiratory: CTAB, no wheezes, no rales, no ronchi, normal chest expansion Gastrointestinal: soft, non-tender, non-distended, normal bowel sounds Neurological: cranial nerve grossly intact, normal sensation to touch Musculoskeletal: normal tone Psychiatric: normal affect, normal behavior, A&O x 3 Hosp A/P (1) PNA (pneumonia) Code(s): J18.9 - PNEUMONIA, UNSPECIFIED ORGANISM Status: Acute Qualifiers: Pneumonia type: due to other aerobic Gram-negative bacteria Laterality: bilateral Lung location: unspecified part of lung Qualified Code(s): J15.6 - Pneumonia due to other Gram-negative bacteria (2) Hyperkalemia Code(s): E87.5 - HYPERKALEMIA Status: Resolved (3) Prostate cancer, primary, with metastasis from prostate to other site Code(s): C61 - MALIGNANT NEOPLASM OF PROSTATE Status: Chronic (4) Bone metastasis Code(s): C79.51 - SECONDARY MALIGNANT NEOPLASM OF BONE Status: Chronic (5) Anemia, chronic disease Code(s): D63.8 - ANEMIA IN OTHER CHRONIC DISEASES CLASSIFIED ELSEWHERE Status: Acute - Plan #1. Acute hypoxic respiratory failure Likely secondary to multifocal pneumonia. He is being treated as a healthcare acquired pneumonia. I will continue antibiotics. His cultures remains negative to date. 2. Multifocal pneumonia. He is being treated as a healthcare acquired pneumonia. There is also some concern for aspiration. I will get speech therapist to help with further evaluation. 3. Metastatic prostate cancer. 4. Stage III sacral decubitus ulcers This was present on admission. Continue dressing changes. #5. Aspiration pneumonia. He appears to still be aspirating. His cough is very weak. We will discuss with speech therapy. I think he may ultimately need a different/alternate means of feeding.
--- NOTE | 2020-08-14 16:12 | PDOC.MOPN ---
Interval History: Patient weak, pain controlled - Vital Signs Vital Signs: Vital Signs (12 hours) Temp Pulse Resp BP BP Pulse Ox 08/14/20 12:00 98.6 F 74 24 H 127/70 97 08/14/20 08:00 98.5 F 85 20 142/72 H 96 08/14/20 05:00 98.1 F 87 22 H 134/78 96 Weight Admit Weight 145 lb Weight 145 lb 9.6 oz - Physical Exam General: No acute distress Lungs: Other (rhonchi) Abdomen: Normal bowel sounds - Labs Result Diagrams: 08/13/20 04:57 08/13/20 04:57 Status: lab reviewed by me A/P - Problem (1) Prostate cancer metastatic to bone Current Visit: No Code(s): C61 - MALIGNANT NEOPLASM OF PROSTATE; C79.51 - SECONDARY MALIGNANT NEOPLASM OF BONE Status: Chronic - Plan Plan: patient having dysphagia, now with rhonchi and poss aspiration We are not able to give Zoladex inpatient per hospital He has not started Xtandi. Believe he is a candidate for hospice.
[2020-08-14] MEDS ORDERED: Potassium Chloride 20 MEQ TAB PO SCH (21:45)
[2020-08-14] MEDS ORDERED: methylPREDNISolone Sod Succ 40 MG VIAL IVP SCH (21:45)
[2020-08-15] MEDS: Piperacillin/Tazobactam 3.375 GM in Sodium Chloride 0.9% 100 ML IVPB SCH ×5 (00:17→23:54)
[2020-08-15] MEDS: HYDROcodone/Acetaminophen 5/325 mg Tablet PO PRN ×2 (02:38→23:58)
[2020-08-15] MEDS: Enoxaparin Sodium 40 MG/0.4 ML SYRINGE SC SCH (08:56)
[2020-08-15 09:34] LABS: Anion Gap 17 mmol/L (10-20); BUN (Urea Nitrogen) 14 mg/dL (8.4-25.7); Calc. Creatinine Clearance 71 mL/min (70-130); Calcium 8.3 mg/dL (7.8-10.44); Carbon Dioxide 23 mmol/L (23-31); Chloride 106 mmol/L (98-107); Glucose 122 mg/dL (80-115); Magnesium 1.5 mg/dL (1.6-2.6); Sodium 142 mmol/L (136-145)
[2020-08-15 10:14] LABS: Anisocytosis SLIGHT = 6-15 cells (100X) (0-5/hpf); Band 11 % (5-11); Elliptocytes SLIGHT = 2-5 cells (100X) (0-1/hpf); Eosinophils 1 % (0-10); Hemoglobin 8.6 g/dL (14.0-18.0); Hypochromia SLIGHT = 6-15 cells (100X) (0-5/hpf); Lymphocytes 10 % (21-51); MDiff Complete? YES; Mean Corpuscular HGB CONC 31.2 g/dL (32.0-36.0); Mean Corpuscular Hemoglobin 26.8 pg (27.0-31.0); Mean Corpuscular Volume 85.8 fL (78.0-98.0); Mean Platelet Volume 10.9 fL (7.4-10.4); Metamyelocyte 3 % (0-0); Microcytosis SLIGHT = 6-15 cells (100X) (0-5/hpf); Monocytes 17 % (0-10); Myelocyte 5 % (0-0); Neutrophil 53 % (42-75); Nucleated RBC 2 % (0); Platelet Count 135 thou/uL (130-400); Platelet Morphology Comment Appears Decreased; Poikilocytosis SLIGHT = 6-15 cells (100X) (0-5/hpf); Polychromasia SLIGHT = 2-3 cells (100X) (0-2/hpf); RBC Distribution Width 18.7 % (11.5-14.5); Tear Drops SLIGHT = 2-5 cells (100X) (0-1/hpf); White Blood Cell (WBC) Count 9.8 thou/uL (4.8-10.8)
--- NOTE | 2020-08-15 12:23 | PDOC.HOSPP ---
- Subjective Encounter Date: 08/15/20 Encounter Time: 08:30 Subjective: Patient is having his pudding. His physical states that physical therapy is continuing to help him around. I talked to Ms. Lamar. Patient has been admitted in the past and several times hospice care as well. Pending medication xtandi, supposed to be brought by his to start here. - Objective Vital Signs & Weight: Vital Signs (12 hours) Temp Pulse Resp BP BP Pulse Ox 08/15/20 11:59 98.2 F 85 20 126/75 96 08/15/20 08:56 95 08/15/20 08:00 98.2 F 78 18 128/72 95 08/15/20 04:00 98.8 F 87 20 124/73 95 Weight Admit Weight 145 lb Weight 145 lb 9.6 oz I&O: 08/14/20 08/15/20 08/16/20 06:59 06:59 06:59 Intake Total 820 2020 Output Total 180 2200 Balance 640 -180 Result Diagrams: 08/15/20 08:46 08/15/20 08:46 Hospitalist ROS - Medication Medications: Active Medications Generic Name Dose Route Start Last Admin Trade Name Freq PRN Reason Stop Dose Admin Acetaminophen 650 mg 08/06/20 03:05 08/08/20 15:21 Acetaminophen 325 Mg Tab PO 650 mg Q4H PRN Administration Headache/Fever/Mild Pain (1-3) Hydrocodone Bitart/Acetaminophen 1 tab 08/06/20 03:05 08/15/20 02:38 Hydrocodone/Acetaminophen 5/325 Mg Tablet PO 1 tab Q4H PRN Administration Moderate Pain (4-6) Albuterol/Ipratropium 3 ml 08/06/20 06:54 08/07/20 02:26 Ipratropium/Albuterol Sulfate 3 Ml Neb NEB 3 ml [id number] PRN Administration SOB &/or Wheezing Enoxaparin Sodium 40 mg 08/15/20 09:00 08/15/20 08:56 Enoxaparin Sodium 40 Mg/0.4 Ml Syringe SC 40 mg 0900 JOYCE Administration Guaifenesin/Dextromethorphan 15 ml 08/06/20 03:05 08/14/20 00:51 Guaifenesin Dm 100-10/5 Ml Udcup PO 15 ml Q4H PRN Administration Cough Piperacillin Sod/Tazobactam 100 mls @ 200 mls/hr 08/07/20 12:00 08/15/20 05:10 Sod 3.375 gm/ Sodium Chloride IVPB 100 mls Q6HR JOYCE Administration Vancomycin HCl 1 gm/ Device 200 mls @ 200 mls/hr 08/12/20 11:00 08/14/20 22:48 IVPB 200 mls 1100,2300 JOYCE Administration Melatonin 3 mg 08/12/20 23:19 08/12/20 23:46 Melatonin 3 Mg Tab PO 3 mg HS PRN Administration Insomnia Pantoprazole Sodium 40 mg 08/06/20 09:00 08/15/20 08:56 Pantoprazole 40 Mg Tab PO 40 mg DAILY JOYCE Administration Sodium Chloride 10 ml 08/07/20 09:00 08/15/20 08:57 Flush - Normal Saline 10 Ml Syringe IVF 10 ml Q12HR JOYCE Administration Sodium Chloride 10 ml 08/07/20 08:30 08/15/20 05:11 Flush - Normal Saline 10 Ml Syringe IVF 10 ml PRN PRN Administration Saline Flush Hospitalist Exam Vitals: Vital Signs (12 hours) Temp Pulse Resp BP BP Pulse Ox 08/15/20 11:59 98.2 F 85 20 126/75 96 08/15/20 08:56 95 08/15/20 08:00 98.2 F 78 18 128/72 95 08/15/20 04:00 98.8 F 87 20 124/73 95 Weight Admit Weight 145 lb Weight 145 lb 9.6 oz General Appearance: NAD, awake alert Eye: PERRL ENT: normocephalic atraumatic Neck: supple Heart: RRR Respiratory: CTAB, normal chest expansion Gastrointestinal: soft, normal bowel sounds Neurological: no focal deficits Musculoskeletal: generalized weakness Psychiatric: A&O x 3 Hosp A/P - Plan (1) PNA (pneumonia) Code(s): J18.9 - PNEUMONIA, UNSPECIFIED ORGANISM Status: Acute Qualifiers: Pneumonia type: due to other aerobic Gram-negative bacteria Laterality: bilateral Lung location: unspecified part of lung Qualified Code(s): J15.6 - Pneumonia due to other Gram-negative bacteria (2) Hyperkalemia Code(s): E87.5 - HYPERKALEMIA Status: Resolved (3) Prostate cancer, primary, with metastasis from prostate to other site Code(s): C61 - MALIGNANT NEOPLASM OF PROSTATE Status: Chronic (4) Bone metastasis Code(s): C79.51 - SECONDARY MALIGNANT NEOPLASM OF BONE Status: Chronic (5) Anemia, chronic disease Code(s): D63.8 - ANEMIA IN OTHER CHRONIC DISEASES CLASSIFIED ELSEWHERE Status: Acute - Plan #1. Acute hypoxic respiratory failure Likely secondary to multifocal pneumonia. He is being treated as a healthcare acquired pneumonia. I will continue antibiotics. His cultures remains negative to date. 2. Multifocal pneumonia. He is being treated as a healthcare acquired pneumonia. There is also some concern for aspiration. I will get speech therapist to help with further evaluation. 3. Metastatic prostate cancer. -Chemo medication to be started as it needs to be brought from home. 4. Stage III sacral decubitus ulcers This was present on admission. Continue dressing changes. #5. Aspiration pneumonia. -Speech therapy consulted. It is unclear whether patient has insurance. But it appears that he came from alf facility. Await until Monday and see any further intervention, if not, consideration going back to alf facility early next week.
[2020-08-15] MEDS ORDERED: Piperacillin/Tazobactam 3.375 GM VIAL ONE (12:31)
[2020-08-15] MEDS: Vancomycin 1 GM in Premix Bag 1 BAG IVPB SCH (14:24)
[2020-08-15] MEDS: Guaifenesin DM 100-10/5 ML UDCUP PO PRN (23:58)
[2020-08-16] MEDS ORDERED: Vancomycin 1 GM in Premix Bag 1 BAG IVPB SCH (02:00)
[2020-08-16] MEDS: Piperacillin/Tazobactam 3.375 GM in Sodium Chloride 0.9% 100 ML IVPB SCH (05:29)
[2020-08-16] MEDS ORDERED: HYDROcodone/Acetaminophen 5/325 mg Tablet PO PRN (05:52)
[2020-08-16 08:25] VITALS: BP 131/68; TEMP 98
[2020-08-16] MEDS: Enoxaparin Sodium 40 MG/0.4 ML SYRINGE SC SCH (09:14)
--- NOTE | 2020-08-16 11:39 | PDOC.DS.DS ---
Provider Date of Admission: 08/06/20 12:58 Admitting Provider: Sekou Rodrigues MD Primary Care Physician: Nicolas Yates MD Course Hospital Course: 64-year-old male presented with PNA (pneumonia) Code(s): J18.9 - PNEUMONIA, UNSPECIFIED ORGANISM Status: Acute Received few days of IV antibiotic and transition to Levaquin prior to discharge. Covid negative (2) Hyperkalemia Code(s): E87.5 - HYPERKALEMIA Status: Resolved (3) Prostate cancer, primary, with metastasis from prostate to other site Code(s): C61 - MALIGNANT NEOPLASM OF PROSTATE Status: Chronic (4) Bone metastasis Code(s): C79.51 - SECONDARY MALIGNANT NEOPLASM OF BONE Status: Chronic (5) Anemia, chronic disease Code(s): D63.8 - ANEMIA IN OTHER CHRONIC DISEASES CLASSIFIED ELSEWHERE Status: Acute - Plan #1. Acute hypoxic respiratory failure Likely secondary to multifocal pneumonia. He is being treated as a healthcare acquired pneumonia. His cultures remains negative to date. 3. Metastatic prostate cancer. -Chemo medication to be started per oncology as outpt 4. Stage III sacral decubitus ulcers Continued dressing changes. Resuscitation Status: 08/06/20 03:05 Resuscitation Status Routine Resuscitation Status: FULL: Full Resuscitation Lab Results: 08/15/20 08:46 08/15/20 08:46 Abnormal Lab Results - Last 48 hrs 08/15/20 08:46: Magnesium 1.5 L 08/15/20 08:46: RBC 3.20 L, Hgb 8.6 L, Hct 27.4 L, MCH 26.8 L, MCHC 31.2 L, RDW 18.7 H, MPV 10.9 H, Lymphocytes % (Manual) 10 L, Monocytes % (Manual) 17 H, Myelocytes % 5 H, Nucleated RBCs # (Man) 2 H, Plt Morphology Comment Appears Decreased L Microbiology - Entire Visit 08/08/20 18:05 Sputum Respiratory Culture - Final 08/08/20 09:50 Stool C. difficile GDH Antigen & Toxins - Final 08/06/20 13:00 Stool - Liquid Stool Occult Blood (YOUNG) - Final 08/05/20 14:30 Stool - Pending - Final Vitals: Vital Signs (12 hours) Temp Pulse Resp BP Pulse Ox 08/16/20 08:00 98.0 F 83 16 131/68 97 02/21/21 04:07 97 Weight Admit Weight 145 lb Weight 145 lb 9.6 oz Physical Exam: The patient was seen and examined on the day of discharge. Patient remains in the same functional status alert oriented x3. Discharge plan discussed. I talked to the senior case manager yesterday and the plan was to send him today to [facility] with hospice. Plan Home Medications: Medication Instructions Recorded Confirmed Type Cyanocobalamin (Vitamin B-12) 1,000 mcg PO DAILY #30 tab 03/03/20 08/06/20 Rx [Vitamin B-12] Polyethylene Glycol 3350 [Miralax] 17 gm PO Q6HR PRN 03/19/20 08/06/20 History Dicyclomine HCl 20 mg PO Q8HR PRN 06/30/20 08/06/20 History Bicalutamide [Casodex] 50 mg PO DAILY #30 tab 07/08/20 08/06/20 Rx Acetaminophen W/ Codeine 1 tab PO Q4HR PRN 08/06/20 08/06/20 History [Acetaminophen/Codeine #3] Acetaminophen [Tylenol] 325 mg PO Q8HR PRN 08/06/20 08/06/20 History Benzonatate 200 mg PO Q8HR PRN 08/06/20 08/06/20 History Ferrous Sulfate [Feosol] 325 mg PO BID 08/06/20 08/06/20 History Ipratropium/Albuterol Sulfate 3 ml NEB QID 08/06/20 08/06/20 History [DuoNeb] Levofloxacin [Levaquin] 500 mg PO DAILY 7 Days #7 tab 08/16/20 Rx Allergies: No Known Drug Allergies Allergy (Verified 06/30/20 01:19) Referrals: [facility] [place] [Other] ([facility] has accepted you for hospice care services and will make arrangements for any needed medical equipment to be delivered to [facility] prior to your discharge. They will plan to see you at [facility] facility on same day as discharge to start you hospice care services. ) [facility], [place] [Other] Nicolas Yates MD [Primary Care Provider] - Disposition: PRISON FACILITY Quality CORE MEASURES:: N/A
[2020-08-16 13:20] LABS: Vancomycin, Trough 35.8 ug/mL
[2020-08-17] MEDS ORDERED: Vancomycin 1 GM in Premix Bag 1 BAG IVPB SCH (13:30)
--- NOTE | 2020-08-19 02:08 | PQF ---
Dear : Sergio Woods Date 08/19/2020 Please exercise your independent, professional judgment in responding to the clarification form. Clinical indicators are provided on the bottom of this form for your review Can you please further clarify the specificity of Pneumonia? Please check appropriate box(es): [ ] Aspiration Pneumonia [x ] Pneumonia due to streptococcus pneumonia [ ] Pneumonia due to other gram negative bacteria [ ] Pneumonia secondary to (specify organism / underlying disease) [ ] Simple Pneumonia [ ] Other diagnosis, please specify [ ] Unable to determine Physician Signature: Date/Time: For continuity of documentation, please document condition throughout progress notes and discharge summary. Thank You. To be completed by CDI/Coding staff for physician review: Present Clinical Indicators - Signs / Symptoms / Labs Results and Location in Medical Record [ x ] Worsening bilateral pneumonia H and P pg.1 [ x ] Pneumonia due to streptococcus pneumonia Hospitalist PN pg.3 08/06 [ x ] He is being treated as a health care acquired pneumonia Hospitalist PN pg.1 08/11 [ x ] Pneumonia due to other gram negative bacteria Hospitalist PN pg.4 08/11 [ x ] Multifocal pneumonia, there is also some concern for aspiration Hospitalist PN pg.4 08/14 [ x ] Aspiration pneumonia Hospitalist PN pg.5 08/14 [ x ] Patient having dysphagia, now with rhoncai and poss aspiration Med Onco PN 08/14 pg.2 [ x ] WBC: 14.7H, 17.1H, 15.7H, 14.5H, 13.6H, 11.2H Laboratory [ x ] Chest Xray: infiltrates have become more extensive Chest Xray 08/05 [ x ] Sputum culture: few gram positive cocci Laboratory 08/08 Present Risk Factors Results and Location in Medical Record [ x ] 64 years old H and P pg.1 [ x ] Former tobacco user H and P pg.2 Present Treatments Results and Location in Medical Record [ x ] IV fluids MAR [ x ] Serial CXRs Chest X ray [ x ] Barium swallow Speech modified barium swallow 08/12 [ x ] Azithromycin 500mg IV MAR [ x ] Rocephin 2gm IV MAR [ x ] Vancomycin 1gm IV MAR [ x ] Zosyn 3.375gm IV MAR CDS/Toppiece Chopper Signature: Yoni Bourne Phone #: ext [phone] Date 08/19/2020 This is a permanent part of the Medical Record [facility]
--- NOTE | 2020-08-20 21:19 | PQF ---
Dear : Sergio Woods Date 08/20/2020 Please exercise your independent, professional judgment in responding to the clarification form. Clinical indicators are provided on the bottom of this form for your review Based on your clinical judgment, can you please specify the infectious status of this patient? Please check appropriate box(es): [ ] Sepsis due to streptococcus pneumonia [ ] Severe sepsis [ x] Localized infection without sepsis [ ] Other diagnosis, please specify [ ] Unable to determine Physician Signature: Date/Time: For continuity of documentation, please document condition throughout progress notes and discharge summary. Thank You. To be completed by CDI/Coding staff for physician review: Present Clinical Indicators - Signs / Symptoms / Labs Results and Location in Medical Record [ x ] Worsening bilateral pneumonia H and P pg.1 [ x ] Pneumonia due to streptococcus pneumonia Hospitalist PN pg.3 08/06 [ x ] VS: BP: 106/62, P: 91,RR: 16, ED Provider pg.2 [ x ] Acute hypoxic respiratory failure DS pg.1 [ x ] WBC: 14.7H, 17.1H, 15.7H, 14.5H, 13.6H, 11.2H Laboratory [ x ] Chest Xray: infiltrates have become more extensive Chest Xray 08/05 [ x ] Sputum culture: few gram positive cocci Laboratory 08/08 Present Risk Factors Results and Location in Medical Record [ x ] 64 years old H and P pg.1 [ x ] Pneumonia H and P pg.1 [ x ] Former tobacco user H and P pg.2 Present Treatments Results and Location in Medical Record [ x ] IV fluids MAR [ x ] Barium swallow Speech modified barium swallow 08/12 [ x ] Azithromycin 500mg IV MAR [ x ] Rocephin 2gm IV MAR [ x ] Vancomycin 1gm IV MAR [ x ] Zosyn 3.375gm IV MAR CDS/Machine Carton Marker Signature: Yoni Bourne Phone #: ext [phone] Date 08/20/2020 This is a permanent part of the Medical Record [facility]
== END 2020-08-16 14:25 | DRG 193 ==
LOC: ERS 13:30 → T4-B 17:48 → INTOOBSV 17:48 → OBSVTOIN 08-06 12:58 → 2SW 08-07 11:05 → ONC 08-13 09:48
PROVIDERS: ADMIT Internal Medicine; ATTEND Internal Medicine
PROC: 30233N1 Transfusion of Nonautologous Red Blood Cells into Peripheral Vein, Percutaneous Approach (ICD-10-PCS; principal; 2020-08-06)
DX: J13 Pneumonia due to Streptococcus pneumoniae (principal); L89.153 Pressure ulcer of sacral region, stage 3; J96.01 Acute respiratory failure with hypoxia; C79.51 Secondary malignant neoplasm of bone; Z20.822 Contact with and (suspected) exposure to COVID-19; C61 Malignant neoplasm of prostate; D63.0 Anemia in neoplastic disease; F41.9 Anxiety disorder, unspecified; F32.9 Major depressive disorder, single episode, unspecified; Z79.51 Long term (current) use of inhaled steroids; Z79.899 Other long term (current) drug therapy; Z87.891 Personal history of nicotine dependence; E87.5 Hyperkalemia
CPT/HCPCS: 36415; 36430; 71045; 74230; 80048; 80053; 80202; 82270; 82274; 82607; 83540; 83550; 83735; 83880; 84145; 85025; 86850; 86900; 86901; 87070; 87205; 87324; 87449; 87635; 87899; 93005; 93010; 94640; 96365; 96375; G0378; J0456; J0696; J1650; J1940; J2001; J2543; J2920; J3370; J3475; J3490; J7050; J7620; P9016; U0003; U0005